=== PATIENT | male | born 1945 | race African-American/Black ===

== ENCOUNTER 2019-07-24 18:44 | Emergency (ER) | payer MEDICARE, MEDICAID, SELFPAY ==
[2019-07-24 18:46] VITALS: BP 158/83; PULSE 62; RESP 15; TEMP 36.6; O2SAT 98; BMI 25.0
--- NOTE | 2019-07-24 19:03 | ED.DCSUM_ITS ---
History of Present Illness Chief Complaint: General Illness Detail of Chief Complaint: Needs blood glucose test strips Informant: Patient Onset: - - Patient has one prescription remaining Context: Sudden Onset Quality: Read narrative Location: Read narrative Current Severity: Not applicable Maximum Severity: Not applicable Worsened by: Not applicable Relieved by: Not applicable Associated Symptoms: Presently no symptoms Narrative: Patient is a 74-year-old insulin diabetic male who recently had eye surgery. He went to [facility] pharmacy to refill his prescription for blood glucose test strips. He was informed that he can only get his prescription filled at the pharmacy in [facility]. He presents now because he is not sure what to do. His test strips are different than the ones that are carried at [facility]. Presently has no symptoms. Patient states he believes it in the emergency of his blood sugars 200. It was determined that he is on a sliding scale and is uncertain how much insulin to give himself unless he monitors his blood sugar. Patient was informed I will be glad to write a prescription for test strips. He states that would not help because he does not have the 100 $250 needed to fill the prescription. He believes it is my responsibility and the hospice possibility to care for him and provide him with test strips. Prior similar symptoms: No Recent Illness/Hospitalization: Yes - Eye surgery - Past Medical History (1) Insulin dependent diabetes mellitus Status: Acute Past Medical History - Allergies and Home Meds Allergies/Adverse Reactions: Allergies No Known Allergies Allergy (Verified 11/01/14 04:03) Primary Care Physician: Gallito Flores Chi, MD [Primary Care Provider] - Prior records reviewed: No - Not from area Surgical History: noncontributory Lives: Alone Smoking Status: Current every day smoker Alcohol: None Review of Systems General: Denies: Chills, Fever, Subjective Eyes: Denies: Visual changes - bilaterally, Blurred Vision - bilaterally Genitourinary: Denies: Dysuria, Hematuria, Frequency Endocrine: Denies: Polyuria, Polydipsia Physical Exam Vital Signs/Narrative: Vital Signs Temp Pulse Resp BP Pulse Ox 07/24/19 18:46 97.8 F 62 15 158/83 H 98 Inital Vital Signs reviewed: Yes General: Well nourished, Well developed, No Acute Distress Eyes: Perrl, EOMI. Negative for: Pale conjunctiva, Scleral icterus Skin: Normal color, No rash Neurological: Alert, Oriented x3, Cranial nerves II-XII grossly intact, Normal Strength, Normal Sensation Psychological: Agitated - Agitated after he was told that we do not have the test strips he needs and his belief that it is our responsibility to care for him and monitor him. Diagnostic/Tx/Re-eval - Medical Decision Making Recent presents for advice regarding test strips. He was not happy with my response or nurses response. He was told that there is a charge every time he comes in to have his blood sugar checked. He replied I do not care I have insurance and it is your responsibility to care for me. ' Patient was informed that a blood sugar of 200 is not a medical emergency. It is his belief that it is. ED Disposition - Plan for ED Patient: Disposition: Home or Assisted Living Diagnosis: Encounter for medical screening examination Instructions: MEDICAL SCREENING EXAM, NonUrgent Referrals: Gallito Flores Chi, MD [Primary Care Provider] -
[2019-07-24 19:21] LABS: Bedside Glucose 118 mg/dL (70-110)
--- NOTE | 2019-07-24 19:30 | ED.RN ---
1904: Rn walks into the room to find dr. poon and the patient discussing that we are unable to assist with the glucometer strips. The pt expresses frustration that he cannot get help. this RN states we can check your blood glucose for you, Dr. Poon agrees saying we can check. The patient is getting louder voicing his frustration that a hospital will not help him. Reviewed that diabetes management is done by a primary provider and maybe he can call his to get strips. He states you are only turning me away because I am black and this is discrimination. Pt continues to express that we are being racist. He then states you are kicking me out and not even checking my blood sugar. RN tells the patient she never said he had to leave or telling him to, that I also offered to check the blood sugar when I first met the patient. He is raising his voice and in the door way expressing that we are discriminating against him and not offering him more services as we would if he was white. He states we should automatically check his blood sugar when he walks in. RN discussed waiting for the provider to see the patient to initiate a check as he does not have complaints of blood glucose being high or low. He reiterates that I have not checked his sugar when he first walked in and no one asked when the last time he took his insulin or checked hs blood glucose was. RN confirmed she would check his blood glucose and he allows. RN leaves the room to obtain glucometer as Umesh RN starts talking to the patient. This RN returns to check blood glucose. Pt denies at this time as discussing health concerns and discrimination with Umesh. RN told patient I walked into the room when the provider was in the room and have not had the opportunity to complete my own assessment. Checked glucose at this time and results at 118. RN tells patient maybe he can call [facility] in [place] to send prescription to [facility]. Pt replies with it will not work that we should be calling the pharmacy to figure out why and not being discriminating against him. Umesh RN calls pharmacy and they are closed. Umesh RN then told patient he called pharmacy and they were closed. Pt walked out at 1920
== END 2019-07-24 19:23 | disposition home or self-care (01) ==
LOC: ED 19:18
PROVIDERS: Emergency Provider Emergency Medicine; Family Provider Family Medicine Geriatric Medicine; PCP Family Medicine Geriatric Medicine
DX: Z76.0 Encounter for issue of repeat prescription (principal); E11.9 Type 2 diabetes mellitus without complications; Z79.4 Long term (current) use of insulin; F17.200 Nicotine dependence, unspecified, uncomplicated
CPT/HCPCS: 82962; 99282

== ENCOUNTER 2019-12-14 16:08 | Inpatient (IN) | payer MEDICARE, MEDICAID, SELFPAY ==
[2019-12-14 16:17] VITALS: BP 143/73; PULSE 84; RESP 18; TEMP 36.7; O2SAT 100; BMI 27.0
--- NOTE | 2019-12-14 16:35 | RAD_ITS ---
STUDY: X-RAY CHEST REASON FOR EXAM: Male, 74 years old. PT HAS HAD INTERMITTENT CONFUSION SINCE YESTERDAY. TECHNIQUE: Single AP portable view of the chest. COMPARISON: 03/02/2010 FINDINGS: The lungs are clear and expanded. There is no demonstrated pleural abnormality. There is moderate cardiac enlargement. Normal mediastinum and braden. Normal visualized pulmonary arteries. Normal visualized aortic arch and descending thoracic aorta. Normal visualized thoracic spine. Normal visualized ribs, clavicles, and shoulders. There is no demonstrated abnormality of the visualized soft tissue structures of the upper abdomen. RAD/Chest 1 View IMPRESSION: No active disease. Electronically Signed: Gary Singh MD at 17:06 EST Tel , Service support ,
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
--- NOTE | 2019-12-14 16:35 | EKG12_ITS ---
Test Reason : CONFUSION Blood Pressure : / mmHG Vent. Rate : 072 BPM Atrial Rate : 072 BPM P-R Int : 130 ms QRS Dur : 098 ms QT Int : 386 ms P-R-T Axes : 077 051 065 degrees QTc Int : 422 ms Normal sinus rhythm Possible Left atrial enlargement Borderline ECG Confirmed by HERBERT RUFF ([id number]), website/blog editor JHON GRIMES ([id number]) on 12/15/2019 3:00:26 PM Referred By: [facility]UC Confirmed By:HERBERT RUFF
[2019-12-14 16:43] LABS: Absolute Lymphocyte Count 1.29 X10^3/uL (0.83-4.51); Absolute Neutrophil Count 7.1 X10^3/uL (2.0-7.7); Basophil# 0.05 X10^3/uL; Basophil% 0.5 % (0-1); Eosinophil# 0.02 X10^3/uL; Eosinophils% 0.2 % (0-5); Hematocrit 50.8 % (40-54); Hemoglobin 15.8 g/dL (13.0-16.5); Lymphocyte # 1.29 X10^3/ul (4.0); Lymphocyte % 13.6 % (19-41); Mean Corp Hgb Conc 31.1 g/dL (32-36); Mean Corpuscular Hgb 25.9 pg (27.0-32.0); Mean Corpuscular Volume 83.1 fL (80-94); Mean Platelet Vol. 11.3 fl (6.2-12.0); Monocyte# 0.98 X10^3/uL; Monocyte% 10.3 % (0-10); NRBC Flagged by Analyzer 0 % (0-5); Neutrophil # 7.13 X10^3/uL (2.7-7.7); Platelet Count 174 K/mm3 (150-450); RBC Distribution Width CV 15.2 % (11.6-14.6); RBC Distribution Width SD 45.1 fl (35.1-43.9); Red Blood Count 6.11 M/mm3 (4.6-6.2); White Blood Count 9.5 K/mm3 (4.4-11.0)
[2019-12-14 16:52] LABS: International Normalized Ratio 1.1
[2019-12-14 16:53] LABS: Partial Thromboplast Time 25.3 Seconds (24.1-36.2)
[2019-12-14 17:05] LABS: Anion Gap 6 (5-15); BUN 16 mg/dL (7-18); BUN/Creat Ratio 16.3 RATIO (10-20); Calcium,Total 8.6 mg/dL (8.5-10.1); Chloride 105 mmol/L (98-107); Creatinine, Serum 0.98 mg/dL (0.70-1.30); EST Glomerular Filtration Rate 79 mL/min (>60); Est Glom Filt Rate - Afr Amer 96 mL/min (>60); Estimated Creatinine Clearance 59.68 ml/min; Glucose 222 mg/dL (74-106); Potassium 3.7 mmol/L (3.5-5.1); Sodium Level 139 mmol/L (136-145)
[2019-12-14] MEDS: LORazepam 2 MG/ML Syringe 1 MG IV (17:40)
[2019-12-14] MEDS: 0.9% Normal Saline 1,000 ML 100 ML IV (17:41)
[2019-12-14 18:16] VITALS: BP 149/81; PULSE 80; RESP 25; O2SAT 95
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
--- NOTE | 2019-12-14 18:23 | NURSING ---
PCU STROKE WHITE
--- NOTE | 2019-12-14 18:43 | PCM.HP.STD ---
Problem List (1) CVA (cerebral vascular accident) Status: Acute (2) GERD (gastroesophageal reflux disease) Status: Acute (3) HLD (hyperlipidemia) Status: Acute (4) HTN (hypertension) Status: Chronic (5) Insulin dependent diabetes mellitus Status: Acute History of Present Illness Date of Admission: 12/14/19 Chief Complaint: aphasia The patient is a 74 year old M with pmhx of IDDM, HTN, HLD, GERD who presented to the ER with c/o expressive aphasia. Pt is only answering yes/no currently so hx is limited. Pts symptoms started yesterday. He is having difficulty finding his words. He did get upset during the CT scan due to claustrophobia and was speaking more. The most I could get him to say was a stroke? when I asked about a hx of stroke, which he then denied. He denies focal weakness, AYALA, vision changes, numbness/tingling, ataxia, swallowing difficulty, slurred speech. He is resting comfortably in bed NAD. He denies fm hx of stroke. CTA was limited due to motion, absent P1 segment of the right posterior cerebral artery, distal segment supplied by the right posterior communicating artery.. [] Past Medical History Past Medical History (Chronic Problems): Chronic Problems HTN (hypertension) (Chronic) Allergies No Known Allergies Allergy (Verified 12/14/19 16:33) Home Medications: Ambulatory Orders Medication Instructions Recorded Duloxetine HCl 60 mg PO DAILY 11/01/14 Hydrocodone/Acetaminophen 1 each PO Q6H PRN PRN 11/01/14 [Hydrocodon-Acetaminophen 5-325] Insulin Glargine [Lantus SoloStar 30 units SC QHS 11/01/14 Pen] Insulin NPH Hum/Reg Insulin Hm 30 unit SQ BREAKFAST 11/01/14 [Novolin 70-30 100 Unit/ml Vial] Insulin NPH Hum/Reg Insulin Hm 30 unit SQ DINNER 11/01/14 [Novolin 70-30 100 Unit/ml Vial] Insulin Regular, Human [Humulin R] 0 unit SQ TID 11/01/14 Lisinopril/Hydrochlorothiazide 1 tablet PO DAILY 11/01/14 [Zestoretic 20/12.5 Tablet] Meloxicam [Mobic] 7.5 mg PO DAILY 11/01/14 Omeprazole [Prilosec] 20 mg PO DAILY 11/01/14 Pregabalin [Lyrica] 150 mg PO BID 11/01/14 Simvastatin [Zocor] 20 mg PO QHS 11/01/14 traMADol [Ultram (G)] 1 - 2 tab PO Q8H PRN PRN 11/01/14 Surgical History: noncontributory Psychiatric History: No pertinent psych hx Lives: Alone Smoking Status: Former smoker Tobacco Use: Non-smoker Alcohol: None Drugs: None - *Family History Maternal History Items: - - denies stroke, CAD Paternal History Items: - - denies stroke, CAD Review of Systems Constitutional: Denies: Chills, Fever, Weight Change HEENT: Denies: Head Aches, Sinus Congestion, Sinus Drainage Cardiovascular: Denies: Chest Pain, Palpitations Respiratory: Denies: Cough, Shortness of breath at rest, Sputum production Gastrointestinal: Denies: Abdominal Pain, Nausea, Vomiting Genitourinary: Denies: Dysuria Musculoskeletal: Denies: Joint Pain, Joint Tenderness Skin: Denies: Rash, Wounds Neurological: Denies: Blurred vision, Double vision, Change in Speech, Slurred speech, Confusion, Difficulty swallowing, Focal weakness, Headaches, Incoordination, Numbness, Tingling, Tremor Psychiatric: Denies: Anxiety, Depression, Homicidal Ideations, Suicidal Ideations Hematologic/ Lymphatic: Denies: Easy Bruising, Easy Bleeding VTE Information - Inpt Only VTE Present on Admission: No VTE Mechan Device Prophylaxis: None VTE Pharm Prophylaxis ordered?: Yes Patient Problems: Active and Suspected Problems GERD (gastroesophageal reflux disease) (Acute) HLD (hyperlipidemia) (Acute) CVA (cerebral vascular accident) (Acute) - Physical Exam Vitals/I&O's: Vital Signs Temp Pulse Resp BP Pulse Ox 98.0 F 80 25 H 149/81 H 95 12/14/19 16:17 12/14/19 18:16 12/14/19 18:16 12/14/19 18:16 12/14/19 18:16 Oxygen Delivery Method Room Air Weight: 167 lb 8.821 oz Body Mass Index (BMI) 27.0 Finger Stick Blood Glucose 203 General: Alert, Oriented x3, Cooperative HEENT: Atraumatic, PERRLA, EOMI, Normocephalic Neck: Supple, No JVD, Negative Carotid Bruits Lungs: Clear to auscultation, Normal air movement Cardiovascular: Regular rate, No murmurs Abdomen: Bowel Sounds Present, Soft, Non Tender Extremities: No edema, Capillary Refill Less than 3 Seconds Skin: No rashes, No breakdown Musculoskeletal: No Tenderness to Palpation of Joints or Extremities Neurological: Cranial nerves II-XII grossly intact, Facial Droop - left lip, left eye, - - expressive aphasia Psych/Mental Status: Normal Affect, Appropriate, Alert and oriented to time, place, person, mood and affect Laboratory Results 12/14/19 16:30: WBC 9.5, RBC 6.11, Hgb 15.8, Hct 50.8, MCV 83.1, MCH 25.9 L, MCHC 31.1 L, RDW Std Deviation 45.1 H, RDW Coeff of Vivian 15.2 H, Plt Count 174, MPV 11.3, Immature Gran % (Auto) 0.400, Neut % (Auto) 75.0 H, Lymph % (Auto) 13.6 L, Converse % (Auto) 10.3 H, Eos % (Auto) 0.2, Baso % (Auto) 0.5, Absolute Neuts (auto) 7.1, Absolute Lymphs (auto) 1.29, Nucleated RBC % 0 12/14/19 16:30: PT 14.0, INR 1.1, APTT 25.3 12/14/19 16:30: Sodium 139, Potassium 3.7, Chloride 105, Carbon Dioxide 28.0, Anion Gap 6, BUN 16, Creatinine 0.98, Estim Creat Clear Calc 59.68, Est GFR (MDRD) Af Amer 96, Est GFR (MDRD) Non-Af 79, BUN/Creatinine Ratio 16.3, Glucose 222 H, Calcium 8.6, Troponin I < 0.015 Current Medications Sodium Chloride () 1,000 mls @ 100 mls/hr IV .Q10H ONE Stop: 12/15/19 02:33 Last Admin: 12/14/19 17:41 Dose: 100 mls/hr Documented by: Assessment/Plan All Active Problems Insulin dependent diabetes mellitus (Acute) GERD (gastroesophageal reflux disease) (Acute) HLD (hyperlipidemia) (Acute) CVA (cerebral vascular accident) (Acute) 1. Suspected stroke - ongoing expressive aphasia, left facial droop lip and eye. CTA with absent P1 segment right posterior cerebral artery, distal segment supplied via patent right posterior communicating artery, study limited due to motion. Obtain MRI. Obtain echo. Continue NIH scales. PT OT ST eval's. Symptoms began yesterday afternoon, TPA not indicated. Maximize statin, start aspirin. Obtain FLP, A1c, TSH. Troponin is negative. EKG shows normal sinus rhythm. -he will need ativan prior to MRI due to claustrophobia. he was very agitated for the CTA. 2. IDDM-check A1c, continue home insulin plus sliding scale insulin. 3. Hypertension-hold oral meds, permissive hypertension 4. Hyperlipidemia-maximize statin. 5. GERD-PPI DVT prophylaxis: Lovenox This patient was seen by David Ferreira PA-C under the supervision of Doctor Carole.
[2019-12-14 19:38] VITALS: BMI 25.7
[2019-12-14 19:43] VITALS: BMI 25.8
[2019-12-14 19:51] VITALS: PULSE 82
--- NOTE | 2019-12-14 19:54 | NURSING ---
Pt does not know home medications. Pt's friends to call in with rivka bray.
--- NOTE | 2019-12-14 19:56 | ED.DCSUM_ITS ---
- ER Visit Summary Date of Service: 12/14/19 Chief Complaint: Expressive aphasia History of Present Illness: The patient is a [address] Van Flores. Patient reports that yesterday afternoon he began having difficulty expressing his thoughts. He reports that he does have a little bit of headache. He reports that he has weakness and numbness in his right hand. He denies any change in his vision. On review of systems patient does complain of a sore throat and diarrhea. Physical Examination: Vitals: Stable. Afebrile. General: Well-nourished and well-developed. Head: Normocephalic atraumatic. Neck: Supple, no lymphadenopathy. No JVD. Nontender. Cardiovascular: Regular rate and rhythm. No murmurs. Respiratory: No respiratory distress. Clear to auscultation bilaterally. Abdominal: Soft, nontender, nondistended, normal bowel sounds. No guarding, rebound, or peritoneal signs. Back: Nontender. Extremities: Nontender, no edema. Skin: Normal color, no rash. Neurologic: Alert and oriented ?3. Cranial nerves II through XII are intact. Normal strength and sensation. NIH scale is 5 due to 2 points as he is not able to state the month or his age, 2 points for his a aphasia, and 1 for dysarthria. Psych: Normal affect. Test Results: EKG is sinus at 72 with nonspecific changes. Troponin is negative. Coags are normal. Chem-7 shows a glucose 222. CBC shows segmented neutrophils 75 lymphocytes 14. Clinical Impression(s) from Imaging Studies Chest X-Ray 12/14/19 16:35 IMPRESSION: No active disease. Electronically Signed: Gary Singh MD at 17:06 EST Tel , Service support , Head/Neck CTA 12/14/19 16:35 IMPRESSION: 1. Limited study due to motion artifact. 2. 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 The distal segments are supplied via the patent right posterior communicating artery. 3. Otherwise normal [place]. 4. Minimal atherosclerotic plaque in the right carotid bifurcation without significant stenosis by NASCET criteria. 5. Normal left carotid and vertebral arteries. Electronically Signed: Leobrado Ashton DO at 18:06 EST Tel [phone], Service support , Emergency Department Course and Treatment: Patient was given a dose of Ativan following the CT as he became very anxious in the CT. He is not a TPA candidate as this is been approximate 24 hours since the onset of this. He is resting comfortably. Treatment Plan: The patient was discussed with Dr. Lam. He will be admitted to the hospital for further evaluation and treatment. Disposition: Admitted in stable condition. Impression: 1. Stroke. 2. Expressive aphasia. This note was generated with [employer] dictation software. It may contain incorrect words, spelling, and punctuation that were not noted in review of the chart pr ior to signing ED Disposition - Plan for ED Patient: Disposition: Acute [facility]
[2019-12-14 20:00] VITALS: BP 149/67; PULSE 77; RESP 17; TEMP 37.7; O2SAT 97
[2019-12-14 21:14] LABS: Cholesterol 107 mg/dL (200); High Density Lipoprotein 54 mg/dL; Magnesium 2.3 mg/dL (1.6-2.6); Triglycerides 75 mg/dL; Very Low Density Lipoprotein 15 mg/dL (5-40)
[2019-12-14] MEDS: Pregabalin 75 MG Capsule 150 MG PO (21:50)
[2019-12-14] MEDS: Atorvastatin Calcium 80 MG Tablet PO (21:50)
[2019-12-14 22:07] VITALS: BP 140/69; PULSE 78; RESP 17; TEMP 36.9; O2SAT 98
[2019-12-14 22:16] LABS: Bedside Glucose 103 mg/dL (70-110)
[2019-12-14 22:23] LABS: Hemoglobin A1c 7.4 % (4.2-6.3)
[2019-12-14 23:16] VITALS: PULSE 93
[2019-12-15] VITALS (11 sets, daily range): BP systolic 124–159; BP diastolic 53–78; PULSE 68–100; RESP 14–18; TEMP 36.1–37.3; O2SAT 92–99; BMI 25.7
[2019-12-15] MEDS: Enoxaparin 40 MG/0.4 ML Syringe SC (05:31)
--- NOTE | 2019-12-15 05:55 | ECHOD_ITS ---
Reason For Study: STROKE Procedure This was a 2D Doppler, Color Flow transthoracic echocardiogram. Exam performed portable in patient room. Left Ventricle Normal size and thickness. The estimated ejection fraction is 65 %. Stage 1 diastolic dysfunction. No regional wall motion abnormalities noted. Right Ventricle Normal size and thickness. Normal systolic function. Atria Normal left atrium. Normal right atrium. Normal atrial septum. Bubble contrast study negative for right to left interatrial shunt. Mitral Valve The mitral valve is structurally normal. No prolapse or stenosis seen. Tricuspid Valve Normal tricuspid valve. Unable to estimate RV systolic pressure due to inadequate jet, pulmonary artery pressure probably normal. Aortic Valve Normal aortic valve. Trisinus/trileaflet aortic valve. Pulmonic Valve The pulmonic valve is not well visualized. Great Vessels Normal aortic root. Normal arch. Normal inferior vena cava. Inferior vena cava collapse with sniff. Pericardium/Pleural No pericardial effusion. Medication Performed a rapid injection of agitated mix of 9 cc saline and 1cc air to assess for atrial septal defect. MMode/2D Measurements & Calculations LVIDd: 3.9 cm IVSd: 1.1 cm Ao root diam: 3.1 cm LVIDs: 2.5 cm LVPWd: 1.2 cm RVDd: 2.7 cm FS: 34.9 % LAV(MOD-bp): 31.2 ml LVAd ap4: 26.3 cm2 SV(MOD-sp4): 49.0 ml LAV(MOD-bp) Indexed: 17.6 ml/m2 EDV(MOD-sp4): 76.7 ml LAV(MOD-sp2): 35.1 ml EDV(sp4-el): 79.4 ml LAV(MOD-sp4): 27.7 ml LVAs ap4: 14.2 cm2 ESV(MOD-sp4): 27.8 ml ESV(sp4-el): 27.3 ml EF(MOD-sp4): 63.8 % EF(sp4-el): 65.7 % SV(sp4-el): 52.1 ml LA A4 area: 12.6 cm2 LA dimension(2D): 3.0 cm RA A4 area: 12.3 cm2 Time Measurements MV dec time: 0.31 sec Doppler Measurements & Calculations MV E max salvador: 66.5 cm/sec Lat Peak E' Salvador: 8.5 cm/sec Med Peak E' Salvador: 7.5 cm/sec MV A max salvador: 98.6 cm/sec E/E' lat: 7.8 E/E' med: 8.8 MV E/A: 0.67 Ao V2 max: 138.5 cm/sec LV V1 max: 100.5 cm/sec PA V2 max: 98.0 cm/sec Ao max P.7 mmHg LV V1 max P.0 mmHg Interpretation Summary The estimated ejection fraction is 65 %. Stage 1 diastolic dysfunction. Bubble contrast study negative for right to left interatrial shunt. Unable to estimate RV systolic pressure due to inadequate jet, pulmonary artery pressure probably normal. There is no comparison study available. Ordering Physician: David Ferreira Referring Physician: FLIP FALL Performed By: Yisel Ralph RDCS
[2019-12-15 06:10] LABS: Absolute Lymphocyte Count 1.66 X10^3/uL (0.83-4.51); Absolute Neutrophil Count 7.1 X10^3/uL (2.0-7.7); Basophil# 0.03 X10^3/uL; Basophil% 0.3 % (0-1); Eosinophil# 0.08 X10^3/uL; Eosinophils% 0.8 % (0-5); Hematocrit 50.9 % (40-54); Lymphocyte # 1.66 X10^3/ul (4.0); Lymphocyte % 16.7 % (19-41); Mean Corp Hgb Conc 31.4 g/dL (32-36); Mean Corpuscular Hgb 25.9 pg (27.0-32.0); Mean Corpuscular Volume 82.4 fL (80-94); Mean Platelet Vol. 12.4 fl (6.2-12.0); Monocyte# 1.01 X10^3/uL; Monocyte% 10.2 % (0-10); NRBC Flagged by Analyzer 0 % (0-5); Neutrophil # 7.13 X10^3/uL (2.7-7.7); Neutrophil % 71.6 % (47-70); Platelet Count 190 K/mm3 (150-450); RBC Distribution Width CV 15.3 % (11.6-14.6); RBC Distribution Width SD 45.1 fl (35.1-43.9); Red Blood Count 6.18 M/mm3 (4.6-6.2)
[2019-12-15 06:36] LABS: Anion Gap 6 (5-15); BUN 17 mg/dL (7-18); BUN/Creat Ratio 19.2 RATIO (10-20); Calcium,Total 8.4 mg/dL (8.5-10.1); Chloride 109 mmol/L (98-107); Creatinine, Serum 0.88 mg/dL (0.70-1.30); EST Glomerular Filtration Rate 89 mL/min (>60); Est Glom Filt Rate - Afr Amer 108 mL/min (>60); Estimated Creatinine Clearance 64.06 ml/min; Glucose 79 mg/dL (74-106); Potassium 3.7 mmol/L (3.5-5.1); Sodium Level 140 mmol/L (136-145)
[2019-12-15 08:25] LABS: Bedside Glucose 86 mg/dL (70-110)
[2019-12-15] MEDS: Insulin Human 75/25 Kwickpen 30 UNIT SC ×2 (09:07→17:37)
[2019-12-15] MEDS: DULoxetine Hcl 60 MG Capsule PO (10:03)
[2019-12-15] MEDS: Aspirin 81 MG TAB.CHEW PO (10:04)
[2019-12-15] MEDS: Polyethylene Glycol 3350 17 GM PACKET PO (10:05)
[2019-12-15] MEDS: Pantoprazole Sodium 20 MG Tablet PO (10:05)
[2019-12-15] MEDS: Pregabalin 75 MG Capsule 150 MG PO ×2 (10:09→22:57)
--- NOTE | 2019-12-15 11:20 | CASEMGMT ---
Social Work: PHQ-9 completed. Patient scored a 1/27 indicating minimal depression. SANTO Gomez
[2019-12-15 11:46] LABS: Bedside Glucose 202 mg/dL (70-110)
[2019-12-15] MEDS: LORazepam 2 MG/ML Syringe 1 MG IV (11:55)
[2019-12-15] MEDS: 0.9% Saline Lock 10 ML Syringe IV (11:55)
[2019-12-15] MEDS: Insulin Lispro 100 UNIT/ML INSULN.PEN SC ×2 (11:58→17:49)
--- NOTE | 2019-12-15 12:00 | MRI_ITS ---
STUDY: MRI BRAIN WITHOUT CONTRAST REASON FOR EXAM: Male, 74 years old. stroke, RLE weakness, expressive aphasia TECHNIQUE: Standardized multiplanar fat and water weighted pulse sequences were obtained. COMPARISON: CT 11/01/2014 FINDINGS: There is mild cerebral atrophy with widening of the extra-axial spaces and ventricular dilatation. There are a limited number of small white matter hyperintensities, distributed throughout the deep white matter tracts of the cerebral hemispheres, consistent with mild chronic white matter ischemic changes. There is no evidence for recent intracranial ischemia or other cause of cytotoxic edema on diffusion weighted imaging (DWI). Normal T2* images of the brain without demonstrated susceptibility artifact. There is no demonstrated hemosiderin stain. Normal bilateral basal ganglia. Normal thalami. There is no extra-axial fluid accumulation. Normal flow voids within the major intracranial circulation suggesting patency by spin echo criteria. Normal sella turcica, pituitary gland, infundibular stalk, optic chiasm and hypothalamus. Normal tectal plate and pineal gland. Normal midbrain, minal and medulla. Normal cerebellum. Normal basal cisterns. Normal bilateral temporal bones. Normal bilateral internal auditory canals. There are bilateral ocular lens implants with otherwise normal intraorbital contents. Normal visualized paranasal sinuses. Normal calvarium and skull base. Normal visualized soft tissue structures. Normal visualized upper cervical spine. MRI/Brain without Contrast IMPRESSION: Involutional changes of the brain, as described above. No acute infarct. Electronically Signed: Gary Singh MD at 14:57 EST Tel , Service support ,
[2019-12-15] MEDS: Glucerna Shake 120 ML LIQUID PO ×3 (14:08→22:50)
--- NOTE | 2019-12-15 15:13 | PN_ITS ---
<David Ferreira - Last Filed: 12/15/19 15:13> Patient Problems: Active and Suspected Problems GERD (gastroesophageal reflux disease) (Acute) HLD (hyperlipidemia) (Acute) CVA (cerebral vascular accident) (Acute) Reason for Visit: Aphasia Subjective: Pt resting comfortably in bed NAD. No complaints today. Holding a normal conversation without difficulty word finding and slurring. He has no focal weakness, no numbness/tingling, no vision/hearing changes. He has significant generalized weakness and did poorly with therapy, they recommend rehab and not safe for home. Vitals/I&O's: Vital Signs Temp Pulse Resp BP Pulse Ox 98.6 F 100 14 130/53 H 95 12/15/19 14:04 12/15/19 14:04 12/15/19 14:04 12/15/19 14:04 12/15/19 14:04 Oxygen Delivery Method Room Air Weight: 154 lb 12.232 oz Body Mass Index (BMI) 25.7 Finger Stick Blood Glucose 203 Intake and Output for Last 24 Hours 12/13/19 12/14/19 12/15/19 23:59 23:59 23:59 Intake Total 583.33 / 583.33 640 / 640 Output Total 150 / 150 300 / 300 Balance 433.33 / 433.33 340 / 340 General: Alert, Oriented x3, Cooperative HEENT: Atraumatic, PERRLA, EOMI, Normocephalic Neck: Supple, No JVD, Negative Carotid Bruits Lungs: Clear to auscultation, Normal air movement Cardiovascular: Regular rate, No murmurs Abdomen: Bowel Sounds Present, Soft, Non Tender Extremities: No edema, Capillary Refill Less than 3 Seconds Skin: No rashes, No breakdown Musculoskeletal: No Tenderness to Palpation of Joints or Extremities Neurological: Cranial nerves II-XII grossly intact Psych/Mental Status: Normal Affect, Appropriate, Alert and oriented to time, place, person, mood and affect Laboratory Results 12/14/19 16:30: WBC 9.5, RBC 6.11, Hgb 15.8, Hct 50.8, MCV 83.1, MCH 25.9 L, MCHC 31.1 L, RDW Std Deviation 45.1 H, RDW Coeff of Vivian 15.2 H, Plt Count 174, MPV 11.3, Immature Gran % (Auto) 0.400, Neut % (Auto) 75.0 H, Lymph % (Auto) 13.6 L, [place] % (Auto) 10.3 H, Eos % (Auto) 0.2, Baso % (Auto) 0.5, Absolute Neuts (auto) 7.1, Absolute Lymphs (auto) 1.29, Nucleated RBC % 0 12/14/19 16:30: PT 14.0, INR 1.1, APTT 25.3 12/14/19 16:30: Sodium 139, Potassium 3.7, Chloride 105, Carbon Dioxide 28.0, Anion Gap 6, BUN 16, Creatinine 0.98, Estim Creat Clear Calc 59.68, Est GFR (MDRD) Af Amer 96, Est GFR (MDRD) Non-Af 79, BUN/Creatinine Ratio 16.3, Glucose 222 H, Calcium 8.6, Troponin I < 0.015 12/14/19 16:30: Magnesium 2.3, Triglycerides 75, Cholesterol 107, LDL Cholesterol 38, VLDL Cholesterol 15, HDL Cholesterol 54, TSH 0.50 12/14/19 16:30: Hemoglobin A1c 7.4 H 12/14/19 21:54: POC Glucose 103 12/15/19 05:30: WBC 10.0, RBC 6.18, Hgb 16.0, Hct 50.9, MCV 82.4, MCH 25.9 L, MCHC 31.4 L, RDW Std Deviation 45.1 H, RDW Coeff of Vivian 15.3 H, Plt Count 190, MPV 12.4 H, Immature Gran % (Auto) 0.400, Neut % (Auto) 71.6 H, Lymph % (Auto) 16.7 L, [place] % (Auto) 10.2 H, Eos % (Auto) 0.8, Baso % (Auto) 0.3, Absolute Neuts (auto) 7.1, Absolute Lymphs (auto) 1.66, Nucleated RBC % 0 12/15/19 05:30: Sodium 140, Potassium 3.7, Chloride 109 H, Carbon Dioxide 25.0, Anion Gap 6, BUN 17, Creatinine 0.88, Estim Creat Clear Calc 64.06, Est GFR (MDRD) Af Amer 108, Est GFR (MDRD) Non-Af 89, BUN/Creatinine Ratio 19.2, Glucose 79, Calcium 8.4 L 12/15/19 08:10: POC Glucose 86 12/15/19 11:43: POC Glucose 202 H Current Medications Acetaminophen (Tylenol) 650 mg PO Q6H PRN PRN PRN Reason: Pain or Fever Al Hydroxide/Mg Hydroxide (Mylanta Ii) 30 ml PO Q6H PRN PRN PRN Reason: Gastric Burning Aspirin (Aspirin, Baby) 81 mg PO DAILY@0800 [facility] Last Admin: 12/15/19 10:04 Dose: 81 mg Documented by: Atorvastatin Calcium (Lipitor) 80 mg PO QHS [facility] Last Admin: 12/14/19 21:50 Dose: 80 mg Documented by: Bisacodyl (Dulcolax) 10 mg PO DAILY PRN PRN PRN Reason: Constipation Docusate Sodium (Colace) 200 mg PO BID PRN PRN PRN Reason: Constipation Duloxetine HCl (Cymbalta) 60 mg PO DAILY [facility] Last Admin: 12/15/19 10:03 Dose: 60 mg Documented by: Enoxaparin Sodium (Lovenox) 40 mg SC DAILY@0600 [facility] Last Admin: 12/15/19 05:31 Dose: 40 mg Documented by: Glucagon () 1 mg IM .X1 PRN PRN Reason: Hypoglycemia Dextrose (Dextrose 10%-Water) 250 mls @ 999 mls/hr IV .Q16M PRN; Protocol PRN Reason: HYPOGLYCEMIA Sodium Chloride () 250 mls @ 15 mls/hr IV .[id number] PRN PRN Reason: Saline Flush Sodium Chloride () 250 mls @ 15 mls/hr IV .[id number] PRN PRN Reason: Additional IVPB Infusion Insulin Human Lispro (Humalog Kwikpen (Bkc)) 0 unit SC ACHS [facility]; Protocol Last Admin: 12/15/19 11:58 Dose: 2 units Documented by: Insulin Lispro Protam/Lispro Human (Humalog Mix 75-25 Kwikpen (Bkc)) 30 unit SC BREAKFAST [facility] Last Admin: 12/15/19 09:07 Dose: 30 units Documented by: Insulin Lispro Protam/Lispro Human (Humalog Mix 75-25 Kwikpen (Bkc)) 30 unit SC DINNER [facility] Nutritional Formula (Lactose Free) (Glucerna Shake) 120 ml PO 4X/DAY [facility] Last Admin: 12/15/19 14:08 Dose: 120 ml Documented by: Ondansetron HCl (Zofran) 4 mg PO Q6H PRN PRN PRN Reason: NAUSEA Ondansetron HCl (Zofran) 4 mg IV Q8H PRN PRN PRN Reason: Nausea Pantoprazole Sodium (Protonix) 20 mg PO DAILY [facility] Last Admin: 12/15/19 10:05 Dose: 20 mg Documented by: Polyethylene Glycol (Miralax) 17 gm PO DAILY [facility] Last Admin: 12/15/19 10:05 Dose: 17 gm Documented by: Pregabalin (Lyrica) 150 mg PO BID [facility] Last Admin: 12/15/19 10:09 Dose: 150 mg Documented by: Sodium Chloride () 10 - 40 ml IV UD PRN PRN Reason: SALINE FLUSH Last Admin: 12/15/19 11:55 Dose: 20 ml Documented by: Tramadol HCl (Ultram) 50 mg PO Q8H PRN PRN PRN Reason: pain STROKE Vital Signs/Narrative: Vital Signs Temp Pulse Resp BP Pulse Ox 12/15/19 14:04 98.6 F 100 14 130/53 H 95 12/15/19 13:42 100 Medical Necessity - Tobacco Use Smoking Status: Former smoker Tobacco Use: Non-smoker Assessment/Plan All Active Problems Insulin dependent diabetes mellitus (Acute) GERD (gastroesophageal reflux disease) (Acute) HLD (hyperlipidemia) (Acute) CVA (cerebral vascular accident) (Acute) 1. ? TIA - transient aphasia, left facial droop. MRI negative, chronic changes. CTA negative. Echo unremarkable. EF 655 st 1 diastolic dysfunction, no ASD. On asa/statin. 2. IDDM- A1C 7.4. continue home insulin plus sliding scale insulin. 3. Hypertension-hold oral meds, permissive hypertension 4. Hyperlipidemia-maximize statin. 5. GERD-PPI 6. Generalized debility - PTOT DVT prophylaxis: Lovenox DC planning: too weak for home, rehab vs SNF. This patient was seen by David Ferreira PA-C under the supervision of Doctor Dennis. <Blanco Collins - Last Filed: 12/15/19 17:07> Reason for Visit: Patient has dysarthria, aphasia and Patient had MRI done in the morning. Patient got 1 mg of IV Ativan. When patient seen in afternoon he was confused and disoriented. Vitals/I&O's: Vital Signs Temp Pulse Resp BP Pulse Ox 98.6 F 100 14 130/53 H 95 12/15/19 14:04 12/15/19 14:04 12/15/19 14:04 12/15/19 14:04 12/15/19 14:04 Oxygen Delivery Method Room Air Weight: 154 lb 12.232 oz Body Mass Index (BMI) 25.7 Finger Stick Blood Glucose 203 Intake and Output for Last 24 Hours 12/13/19 12/14/19 12/15/19 23:59 23:59 23:59 Intake Total 583.33 / 583.33 640 / 640 Output Total 150 / 150 300 / 300 Balance 433.33 / 433.33 340 / 340 General: Alert, Oriented x3, Cooperative HEENT: Atraumatic, PERRLA, EOMI, Normocephalic Neck: Supple, No JVD, Negative Carotid Bruits Lungs: Clear to auscultation, No rhonchi, No wheeze, No rales, Diminished Cardiovascular: Regular rate, Regular Rhythm, Normal S1, Normal S2, No murmurs Abdomen: Bowel Sounds Present, Soft, Non Tender Extremities: No edema, Capillary Refill Less than 3 Seconds Skin: No rashes, No breakdown Musculoskeletal: No Tenderness to Palpation of Joints or Extremities Neurological: - - Mild right lower extremity. Patient has flattening of nasolabial fold on right side and pulling of angle of mouth on left side therefore right-sided facial palsy. Motor and sensory system cannot be examined as patient was mildly confused and disoriented secondary to Ativan. Psych/Mental Status: Normal Affect, Appropriate Laboratory Results 12/14/19 16:30: Sodium 139, Potassium 3.7, Chloride 105, Carbon Dioxide 28.0, Anion Gap 6, BUN 16, Creatinine 0.98, Estim Creat Clear Calc 59.68, Est GFR (MDRD) Af Amer 96, Est GFR (MDRD) Non-Af 79, BUN/Creatinine Ratio 16.3, Glucose 222 H, Calcium 8.6, Troponin I < 0.015 12/14/19 16:30: Magnesium 2.3, Triglycerides 75, Cholesterol 107, LDL Cholesterol 38, VLDL Cholesterol 15, HDL Cholesterol 54, TSH 0.50 12/14/19 16:30: Hemoglobin A1c 7.4 H 12/14/19 21:54: POC Glucose 103 12/15/19 05:30: WBC 10.0, RBC 6.18, Hgb 16.0, Hct 50.9, MCV 82.4, MCH 25.9 L, MCHC 31.4 L, RDW Std Deviation 45.1 H, RDW Coeff of Vivian 15.3 H, Plt Count 190, MPV 12.4 H, Immature Gran % (Auto) 0.400, Neut % (Auto) 71.6 H, Lymph % (Auto) 16.7 L, [place] % (Auto) 10.2 H, Eos % (Auto) 0.8, Baso % (Auto) 0.3, Absolute Neuts (auto) 7.1, Absolute Lymphs (auto) 1.66, Nucleated RBC % 0 12/15/19 05:30: Sodium 140, Potassium 3.7, Chloride 109 H, Carbon Dioxide 25.0, Anion Gap 6, BUN 17, Creatinine 0.88, Estim Creat Clear Calc 64.06, Est GFR (MDRD) Af Amer 108, Est GFR (MDRD) Non-Af 89, BUN/Creatinine Ratio 19.2, Glucose 79, Calcium 8.4 L 12/15/19 08:10: POC Glucose 86 12/15/19 11:43: POC Glucose 202 H Current Medications Acetaminophen (Tylenol) 650 mg PO Q6H PRN PRN PRN Reason: Pain or Fever Al Hydroxide/Mg Hydroxide (Mylanta Ii) 30 ml PO Q6H PRN PRN PRN Reason: Gastric Burning Aspirin (Aspirin, Baby) 81 mg PO DAILY@0800 [facility] Last Admin: 12/15/19 10:04 Dose: 81 mg Documented by: Atorvastatin Calcium (Lipitor) 80 mg PO QHS [facility] Last Admin: 12/14/19 21:50 Dose: 80 mg Documented by: Bisacodyl (Dulcolax) 10 mg PO DAILY PRN PRN PRN Reason: Constipation Docusate Sodium (Colace) 200 mg PO BID PRN PRN PRN Reason: Constipation Duloxetine HCl (Cymbalta) 60 mg PO DAILY [facility] Last Admin: 12/15/19 10:03 Dose: 60 mg Documented by: Enoxaparin Sodium (Lovenox) 40 mg SC DAILY@0600 [facility] Last Admin: 12/15/19 05:31 Dose: 40 mg Documented by: Glucagon () 1 mg IM .X1 PRN PRN Reason: Hypoglycemia Dextrose (Dextrose 10%-Water) 250 mls @ 999 mls/hr IV .Q16M PRN; Protocol PRN Reason: HYPOGLYCEMIA Sodium Chloride () 250 mls @ 15 mls/hr IV .[id number] PRN PRN Reason: Saline Flush Sodium Chloride () 250 mls @ 15 mls/hr IV .[id number] PRN PRN Reason: Additional IVPB Infusion Insulin Human Lispro (Humalog Kwikpen (Bkc)) 0 unit SC ACHS [facility]; Protocol Last Admin: 12/15/19 11:58 Dose: 2 units Documented by: Insulin Lispro Protam/Lispro Human (Humalog Mix 75-25 Kwikpen (Bk)) 30 unit SC BREAKFAST [facility] Last Admin: 12/15/19 09:07 Dose: 30 units Documented by: Insulin Lispro Protam/Lispro Human (Humalog Mix 75-25 Kwikpen (Bk)) 30 unit SC DINNER [facility] Nutritional Formula (Lactose Free) (Glucerna Shake) 120 ml PO 4X/DAY [facility] Last Admin: 12/15/19 14:08 Dose: 120 ml Documented by: Ondansetron HCl (Zofran) 4 mg PO Q6H PRN PRN PRN Reason: NAUSEA Ondansetron HCl (Zofran) 4 mg IV Q8H PRN PRN PRN Reason: Nausea Pantoprazole Sodium (Protonix) 20 mg PO DAILY [facility] Last Admin: 12/15/19 10:05 Dose: 20 mg Documented by: Polyethylene Glycol (Miralax) 17 gm PO DAILY [facility] Last Admin: 12/15/19 10:05 Dose: 17 gm Documented by: Pregabalin (Lyrica) 150 mg PO BID [facility] Last Admin: 12/15/19 10:09 Dose: 150 mg Documented by: Sodium Chloride () 10 - 40 ml IV UD PRN PRN Reason: SALINE FLUSH Last Admin: 12/15/19 11:55 Dose: 20 ml Documented by: Tramadol HCl (Ultram) 50 mg PO Q8H PRN PRN PRN Reason: pain STROKE Vital Signs/Narrative: Vital Signs Temp Pulse Resp BP Pulse Ox 12/15/19 14:04 98.6 F 100 14 130/53 H 95 12/15/19 13:42 100 Assessment/Plan This patient was seen in conjunction with David GARCIA. I have independently interviewed and examined the patient and reviewed pertinent history, examination findings, laboratory and plan of management. I have reviewed the note and agree with the documented findings with the few additional points. In brief, patient is admitted for dysarthria, expressive aphasia and right- sided facial droop with mild right lower extremity weakness. MRI is negative for acute stroke. Head and neck CTA shows right posterior cerebral artery anatomical normal variation with absent P1 segment with supply from patent right posterior communicating artery. PT OT and speech evaluation. Consult telemetry neurology. On aspirin and statin. Blood pressure is controlled. Echo EF 65% with a stage I diastolic dysfunction. No ASD. I have discussed my assessment with David GARCIA and orders have been reviewed. Clinical Impression(s) from Imaging Studies Chest X-Ray 12/14/19 16:35 IMPRESSION: No active disease. Electronically Signed: Gary Singh MD at 17:06 EST Tel , Service support , Head/Neck CTA 12/14/19 16:35 IMPRESSION: 1. Limited study due to motion artifact. 2. 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 The distal segments are supplied via the patent right posterior communicating artery. 3. Otherwise normal [place]. 4. Minimal atherosclerotic plaque in the right carotid bifurcation without significant stenosis by NASCET criteria. 5. Normal left carotid and vertebral arteries. Brain MRI 12/15/19 12:00 IMPRESSION: Involutional changes of the brain, as described above. No acute infarct. Code Visit Inpatient E&M: 32011 Subs Hosp L3
--- NOTE | 2019-12-15 15:36 | CASEMGMT ---
Social Work Note MIKE updated that PT/OT recommending Rehab, not safe for pt to return home. MIKE spoke with Selwyn Mendez who states [facility] will not have a bed available until next week. MIKE met with pt. Pt sleeping when this worker entered the room but woke up. MIKE informed pt that PT/OT are recommending pt go somewhere for rehabilitation. MIKE provided pt with list of SNF that accept pt's insurance. Pt states he will review list. MIKE informed pt that MIKE can follow up with pt tomorrow. Plan: Likely SNF [facility] [employer], [employer]
[2019-12-15 17:35] LABS: Bedside Glucose 192 mg/dL (70-110)
[2019-12-15] MEDS: Clopidogrel Bisulfate 75 MG Tablet PO (17:58)
[2019-12-15] MEDS: Lisinopril 10 MG Tablet PO (17:58)
--- NOTE | 2019-12-15 22:45 | NURSING ---
pts blood sugar 53, juice and cookies given.
[2019-12-15] MEDS: Atorvastatin Calcium 80 MG Tablet PO (22:50)
[2019-12-16] VITALS (9 sets, daily range): BP systolic 120–140; BP diastolic 64–69; PULSE 82–97; RESP 16–20; TEMP 36.4–37.1; O2SAT 92–95; BMI 25.7
[2019-12-16 00:05] LABS: Bedside Glucose 98 mg/dL (70-110)
[2019-12-16 01:36] LABS: Bedside Glucose 128 mg/dL (70-110)
[2019-12-16 03:45] LABS: Bedside Glucose 114 mg/dL (70-110)
[2019-12-16] MEDS: Mag Hydrox/Al Hydrox/Simeth 30 ML UDC PO (03:45)
--- NOTE | 2019-12-16 03:55 | NURSING ---
pt c/o heartburn, mylanta given
[2019-12-16] MEDS: Enoxaparin 40 MG/0.4 ML Syringe SC (06:48)
[2019-12-16 07:05] LABS: Bedside Glucose 45 mg/dL (70-110)
[2019-12-16 07:05] LABS: Bedside Glucose 53 mg/dL (70-110)
[2019-12-16 07:06] LABS: Bedside Glucose 146 mg/dL (70-110)
[2019-12-16] MEDS: Pregabalin 75 MG Capsule 150 MG PO ×2 (10:22→21:49)
[2019-12-16] MEDS: Lisinopril 10 MG Tablet PO (10:23)
[2019-12-16] MEDS: Aspirin 81 MG TAB.CHEW PO (10:23)
[2019-12-16] MEDS: Clopidogrel Bisulfate 75 MG Tablet PO (10:23)
[2019-12-16] MEDS: Polyethylene Glycol 3350 17 GM PACKET PO (10:23)
[2019-12-16] MEDS: Pantoprazole Sodium 20 MG Tablet PO (10:23)
[2019-12-16] MEDS: DULoxetine Hcl 60 MG Capsule PO (10:23)
--- NOTE | 2019-12-16 10:36 | CASEMGMT ---
SW spoke with patient regarding which facility he would like to go to. He seemed unsure of what SW was talking about. SW explained to him that he will need to go somewhere for rehab at discharge before he can go home. SW showed him the list. SW let him know SW would like to know today so SW can make arrangements. He told SW to check back with him. Shelia GOTTLIEB MSW
[2019-12-16 12:10] LABS: Bedside Glucose 190 mg/dL (70-110)
[2019-12-16] MEDS: 0.9% Saline Lock 10 ML Syringe IV (12:52)
[2019-12-16] MEDS: Ondansetron 4 MG/2 ML Vial IV (12:53)
--- NOTE | 2019-12-16 13:47 | CASEMGMT ---
SW spoke with patient regarding which facility he would be willing to go to. He asked SW if he could stop by his home first. SW told him that is not how it normally works. SW explained that normally he would go from the hospital directly to the nursing facility. He said he has money and jewelry at his friend's home and he is not comfortable leaving it there. He said he is nervous about his stuff now. SW told him that we cannot allow him to leave and come back as he is too weak and unstable to go home. SW explained depending on the facility they may be able to assist him in going to his home. Patient would only focus on the fact he needed to go to his home and get this stuff. He would then ask that his records get sent to [facility] and he would go to [facility]. He said he would get up and just walk right out of here and no one could stop him. Housekeeping came in and SW got up to leave. He then said he would go to [facility]. He told SW to find out if he can leave and come back. SW told him he would not be able to do this. MIKE called [facility] and spoke with Maxine in admissions. SW let her know about patient's situation and asked if they would be able to help him get his personal belongings. She said she is not sure she would have to check with [employer] systems administrator. She told SW to fax the referral. MIKE faxed referral to [facility]. Shelia CARDENAS
--- NOTE | 2019-12-16 14:02 | PCM.PROGNOTE ---
<Oksana Obregon - Last Filed: 12/16/19 14:07> Patient Problems: Active and Suspected Problems GERD (gastroesophageal reflux disease) (Acute) HLD (hyperlipidemia) (Acute) CVA (cerebral vascular accident) (Acute) Subjective: Patient seen and examined. Complains of generalized weakness. Denies new neurologic symptoms or focal deficits. - Physical Exam Vitals/I&O's: Vital Signs Temp Pulse Resp BP Pulse Ox 97.6 F L 84 16 126/69 H 93 12/16/19 10:51 12/16/19 10:51 12/16/19 10:51 12/16/19 10:51 12/16/19 10:51 Oxygen Delivery Method Room Air Weight: 154 lb 12.232 oz Body Mass Index (BMI) 25.7 Finger Stick Blood Glucose 203 Intake and Output for Last 24 Hours 12/14/19 12/15/19 12/16/19 23:59 23:59 23:59 Intake Total 583.33 / 583.33 1090 / 1330 240 / 240 Output Total 150 / 150 300 / 300 Balance 433.33 / 433.33 790 / 1030 240 / 240 General: Alert, Oriented x3, Cooperative HEENT: Atraumatic, PERRLA, EOMI, Normocephalic Neck: Supple, No JVD, Negative Carotid Bruits Lungs: Clear to auscultation, Normal air movement Cardiovascular: Regular rate, Regular Rhythm, Normal S1, Normal S2, No murmurs Abdomen: Bowel Sounds Present, Soft, Non Tender, Non-Distended Extremities: No clubbing, No cyanosis, No edema, Capillary Refill Less than 3 Seconds Skin: No rashes, No breakdown Musculoskeletal: No Tenderness to Palpation of Joints or Extremities Neurological: Cranial nerves II-XII grossly intact, Neuro grossly intact Psych/Mental Status: Normal Affect, Appropriate Laboratory Results 12/15/19 17:33: POC Glucose 192 H 12/15/19 22:35: POC Glucose 45 L 12/15/19 22:37: POC Glucose 53 L 12/15/19 23:38: POC Glucose 98 12/16/19 01:01: POC Glucose 128 H 12/16/19 03:39: POC Glucose 114 H 12/16/19 06:53: POC Glucose 146 H 12/16/19 11:56: POC Glucose 190 H Current Medications Acetaminophen (Tylenol) 650 mg PO Q6H PRN PRN PRN Reason: Pain or Fever Al Hydroxide/Mg Hydroxide (Mylanta Ii) 30 ml PO Q6H PRN PRN PRN Reason: Gastric Burning Last Admin: 12/16/19 03:45 Dose: 30 ml Documented by: Aspirin (Aspirin, Baby) 81 mg PO DAILY@0800 [facility] Last Admin: 12/16/19 10:23 Dose: 81 mg Documented by: Atorvastatin Calcium (Lipitor) 80 mg PO QHS [facility] Last Admin: 12/15/19 22:50 Dose: 80 mg Documented by: Bisacodyl (Dulcolax) 10 mg PO DAILY PRN PRN PRN Reason: Constipation Clopidogrel Bisulfate (Plavix) 75 mg PO DAILY [facility] Last Admin: 12/16/19 10:23 Dose: 75 mg Documented by: Docusate Sodium (Colace) 200 mg PO BID PRN PRN PRN Reason: Constipation Duloxetine HCl (Cymbalta) 60 mg PO DAILY [facility] Last Admin: 12/16/19 10:23 Dose: 60 mg Documented by: Enoxaparin Sodium (Lovenox) 40 mg SC DAILY@0600 [facility] Last Admin: 12/16/19 06:48 Dose: 40 mg Documented by: Glucagon () 1 mg IM .X1 PRN PRN Reason: Hypoglycemia Dextrose (Dextrose 10%-Water) 250 mls @ 999 mls/hr IV .Q16M PRN; Protocol PRN Reason: HYPOGLYCEMIA Sodium Chloride () 250 mls @ 15 mls/hr IV .[id number] PRN PRN Reason: Saline Flush Sodium Chloride () 250 mls @ 15 mls/hr IV .[id number] PRN PRN Reason: Additional IVPB Infusion Insulin Human Lispro (Humalog Kwikpen (Bkc)) 0 unit SC ACHS [facility]; Protocol Last Admin: 12/16/19 12:54 Dose: Not Given Documented by: Insulin Lispro Protam/Lispro Human (Humalog Mix 75-25 Kwikpen (Bkc)) 30 unit SC BREAKFAST [facility] Last Admin: 12/16/19 10:32 Dose: Not Given Documented by: Insulin Lispro Protam/Lispro Human (Humalog Mix 75-25 Kwikpen (Bkc)) 30 unit SC DINNER [facility] Last Admin: 12/15/19 17:37 Dose: 30 units Documented by: Lisinopril (Zestril) 10 mg PO DAILY [facility] Last Admin: 12/16/19 10:23 Dose: 10 mg Documented by: Nutritional Formula (Lactose Free) (Glucerna Shake) 120 ml PO 4X/DAY [facility] Last Admin: 12/16/19 12:54 Dose: Not Given Documented by: Ondansetron HCl (Zofran) 4 mg PO Q6H PRN PRN PRN Reason: NAUSEA Ondansetron HCl (Zofran) 4 mg IV Q8H PRN PRN PRN Reason: Nausea Last Admin: 12/16/19 12:53 Dose: 4 mg Documented by: Pantoprazole Sodium (Protonix) 20 mg PO DAILY [facility] Last Admin: 12/16/19 10:23 Dose: 20 mg Documented by: Polyethylene Glycol (Miralax) 17 gm PO DAILY [facility] Last Admin: 12/16/19 10:23 Dose: 17 gm Documented by: Pregabalin (Lyrica) 150 mg PO BID [facility] Last Admin: 12/16/19 10:22 Dose: 150 mg Documented by: Sodium Chloride () 10 - 40 ml IV UD PRN PRN Reason: SALINE FLUSH Last Admin: 12/16/19 12:52 Dose: 10 ml Documented by: Tramadol HCl (Ultram) 50 mg PO Q8H PRN PRN PRN Reason: pain Medical Necessity - Tobacco Use Smoking Status: Former smoker Tobacco Use: Non-smoker Assessment/Plan All Active Problems Insulin dependent diabetes mellitus (Acute) GERD (gastroesophageal reflux disease) (Acute) HLD (hyperlipidemia) (Acute) CVA (cerebral vascular accident) (Acute) 1. TIA- tele-neurology consulted. Continue aspirin, statin. Plavix added. Plan for 30-day Holter monitor at discharge. MRI negative for stroke. Echocardiogram demonstrated EF 65%, stage I diastolic dysfunction. PT/OT/ST. plan for SNF pending acceptance due to ongoing debility. 2. Insulin-dependent diabetes [id number]-[id number] with sliding scale insulin. 3. Hypertension-stable, continue lisinopril, HCTZ regimen. 4. Hyperlipidemia-continue statin. 5. GERD-not on regimen. DVT prophylaxis- Lovenox wa Discharge planning: SNF pending approval. This patient was seen by NETTE Olvera under the supervision of Dr. Collins. <DennisPatiBlanco - Last Filed: 12/16/19 15:34> Subjective: Seen and examined. Patient looks drowsy and lethargic. When asked, he says he feels good does not have a specific symptoms. Overall feels generalized weakness. Facial droop is new as per the patient. Objective: On physical exam General: Alert, Oriented x3, Cooperative HEENT: Atraumatic, PERRLA, EOMI, Normocephalic Neck: Supple, No JVD, Negative Carotid Bruits Lungs: Clear to auscultation, No rhonchi, No wheeze, No rales, Diminished Cardiovascular: Regular rate, Regular Rhythm, Normal S1, Normal S2, No murmurs Abdomen: Bowel Sounds Present, Soft, Non Tender Extremities: No edema, Capillary Refill Less than 3 Seconds Skin: No rashes, No breakdown Musculoskeletal: No Tenderness to Palpation of Joints or Extremities Neurological: -Bilateral lower extremity strength 5/5. Muscle strength 5/5 at major joints. Patient has left-sided facial palsy. Psych/Mental Status: Normal Affect, Appropriate - Physical Exam Vitals/I&O's: Vital Signs Temp Pulse Resp BP Pulse Ox 97.6 F L 84 16 126/69 H 93 12/16/19 10:51 12/16/19 10:51 12/16/19 10:51 12/16/19 10:51 12/16/19 10:51 Oxygen Delivery Method Room Air Weight: 154 lb 12.232 oz Body Mass Index (BMI) 25.7 Finger Stick Blood Glucose 203 Intake and Output for Last 24 Hours 12/14/19 12/15/19 12/16/19 23:59 23:59 23:59 Intake Total 583.33 / 583.33 1090 / 1330 240 / 240 Output Total 150 / 150 300 / 300 Balance 433.33 / 433.33 790 / 1030 240 / 240 Laboratory Results 12/15/19 17:33: POC Glucose 192 H 12/15/19 22:35: POC Glucose 45 L 12/15/19 22:37: POC Glucose 53 L 12/15/19 23:38: POC Glucose 98 12/16/19 01:01: POC Glucose 128 H 12/16/19 03:39: POC Glucose 114 H 12/16/19 06:53: POC Glucose 146 H 12/16/19 11:56: POC Glucose 190 H Current Medications Acetaminophen (Tylenol) 650 mg PO Q6H PRN PRN PRN Reason: Pain or Fever Al Hydroxide/Mg Hydroxide (Mylanta Ii) 30 ml PO Q6H PRN PRN PRN Reason: Gastric Burning Last Admin: 12/16/19 03:45 Dose: 30 ml Documented by: Aspirin (Aspirin, Baby) 81 mg PO DAILY@0800 [facility] Last Admin: 12/16/19 10:23 Dose: 81 mg Documented by: Atorvastatin Calcium (Lipitor) 80 mg PO QHS [facility] Last Admin: 12/15/19 22:50 Dose: 80 mg Documented by: Bisacodyl (Dulcolax) 10 mg PO DAILY PRN PRN PRN Reason: Constipation Clopidogrel Bisulfate (Plavix) 75 mg PO DAILY [facility] Last Admin: 12/16/19 10:23 Dose: 75 mg Documented by: Docusate Sodium (Colace) 200 mg PO BID PRN PRN PRN Reason: Constipation Duloxetine HCl (Cymbalta) 60 mg PO DAILY [facility] Last Admin: 12/16/19 10:23 Dose: 60 mg Documented by: Enoxaparin Sodium (Lovenox) 40 mg SC DAILY@0600 [facility] Last Admin: 12/16/19 06:48 Dose: 40 mg Documented by: Glucagon () 1 mg IM .X1 PRN PRN Reason: Hypoglycemia Dextrose (Dextrose 10%-Water) 250 mls @ 999 mls/hr IV .Q16M PRN; Protocol PRN Reason: HYPOGLYCEMIA Sodium Chloride () 250 mls @ 15 mls/hr IV .[id number] PRN PRN Reason: Saline Flush Sodium Chloride () 250 mls @ 15 mls/hr IV .[id number] PRN PRN Reason: Additional IVPB Infusion Insulin Human Lispro (Humalog Kwikpen (Bkc)) 0 unit SC ACHS [facility]; Protocol Last Admin: 12/16/19 12:54 Dose: Not Given Documented by: Insulin Lispro Protam/Lispro Human (Humalog Mix 75-25 Kwikpen (Bk)) 30 unit SC BREAKFAST [facility] Last Admin: 12/16/19 10:32 Dose: Not Given Documented by: Insulin Lispro Protam/Lispro Human (Humalog Mix 75-25 Kwikpen ([facility])) 30 unit SC DINNER [facility] Last Admin: 12/15/19 17:37 Dose: 30 units Documented by: Lisinopril (Zestril) 10 mg PO DAILY [facility] Last Admin: 12/16/19 10:23 Dose: 10 mg Documented by: Nutritional Formula (Lactose Free) (Glucerna Shake) 120 ml PO 4X/DAY [facility] Last Admin: 12/16/19 12:54 Dose: Not Given Documented by: Ondansetron HCl (Zofran) 4 mg PO Q6H PRN PRN PRN Reason: NAUSEA Ondansetron HCl (Zofran) 4 mg IV Q8H PRN PRN PRN Reason: Nausea Last Admin: 12/16/19 12:53 Dose: 4 mg Documented by: Pantoprazole Sodium (Protonix) 20 mg PO DAILY [facility] Last Admin: 12/16/19 10:23 Dose: 20 mg Documented by: Polyethylene Glycol (Miralax) 17 gm PO DAILY [facility] Last Admin: 12/16/19 10:23 Dose: 17 gm Documented by: Pregabalin (Lyrica) 150 mg PO BID [facility] Last Admin: 12/16/19 10:22 Dose: 150 mg Documented by: Sodium Chloride () 10 - 40 ml IV UD PRN PRN Reason: SALINE FLUSH Last Admin: 12/16/19 12:52 Dose: 10 ml Documented by: Tramadol HCl (Ultram) 50 mg PO Q8H PRN PRN PRN Reason: pain Assessment/Plan This patient was seen in conjunction with COMPUTER TERMINAL OPERATOR, Oksana. I have independently interviewed and examined the patient and reviewed pertinent history, examination findings, laboratory and plan of management. I have reviewed the note and agree with the documented findings with the few additional points. In brief, patient is admitted for dysarthria, expressive aphasia and right-sided facial droop with mild right lower extremity weakness. MRI is negative for acute stroke. Head and neck CTA shows right posterior cerebral artery anatomical normal variation with absent P1 segment with supply from patent right posterior communicating artery. PT OT and speech evaluation. On aspirin, Plavix and statin. Blood pressure is controlled. Echo EF 65% with a stage I diastolic dysfunction. No ASD. Tele-neurology consulted. Overall diagnosis most likely TIA, left MCA territory cryptogenic TIA. on DAPT, aspirin Plavix and statin. Recommended Holter monitor for 30 days. Blood pressure and glucose are controlled. Rest of the comorbidities as mentioned above I have discussed my assessment with COMPUTER TERMINAL OPERATOROksana and orders have been reviewed. Code Visit Inpatient E&M: 24642 Subs Hosp L2
--- NOTE | 2019-12-16 15:29 | CASEMGMT ---
MIKE received a call from Maxine at [facility] and they can accept patient. MIKE asked about helping patient get his belongings. She said their senior linux systems administrator said they will figure something out. Shelia CARDENAS
[2019-12-16 17:36] LABS: Bedside Glucose 257 mg/dL (70-110)
[2019-12-16] MEDS: Insulin Lispro 100 UNIT/ML INSULN.PEN SC ×2 (18:07→21:45)
[2019-12-16] MEDS: Glucerna Shake 120 ML LIQUID PO (21:44)
[2019-12-16] MEDS: Atorvastatin Calcium 80 MG Tablet PO (21:45)
[2019-12-17 01:06] LABS: Bedside Glucose 206 mg/dL (70-110)
[2019-12-17 02:28] VITALS: BP 142/70; PULSE 88; RESP 16; TEMP 36.8; O2SAT 93
[2019-12-17 03:00] VITALS: PULSE 87
[2019-12-17 04:15] VITALS: BMI 25.7
[2019-12-17] MEDS: Enoxaparin 40 MG/0.4 ML Syringe SC (06:33)
[2019-12-17] MEDS: Mag Hydrox/Al Hydrox/Simeth 30 ML UDC PO (06:33)
[2019-12-17] MEDS: 0.9% Saline Lock 10 ML Syringe IV (06:42)
[2019-12-17] MEDS: Ondansetron 4 MG/2 ML Vial IV (06:42)
[2019-12-17 07:07] VITALS: PULSE 87
[2019-12-17 08:21] LABS: Bedside Glucose 220 mg/dL (70-110)
[2019-12-17 08:28] VITALS: BP 171/84; PULSE 83; RESP 16; TEMP 36.9; O2SAT 93
[2019-12-17] MEDS: Insulin Human 75/25 Kwickpen 30 UNIT SC (08:59)
[2019-12-17] MEDS: DULoxetine Hcl 60 MG Capsule PO (09:00)
[2019-12-17] MEDS: Insulin Lispro 100 UNIT/ML INSULN.PEN SC (09:00)
[2019-12-17] MEDS: Polyethylene Glycol 3350 17 GM PACKET PO (09:00)
[2019-12-17] MEDS: Aspirin 81 MG TAB.CHEW PO (09:00)
[2019-12-17] MEDS: Pantoprazole Sodium 20 MG Tablet PO (09:01)
[2019-12-17] MEDS: Pregabalin 75 MG Capsule 150 MG PO (09:08)
[2019-12-17] MEDS: Clopidogrel Bisulfate 75 MG Tablet PO (09:08)
[2019-12-17] MEDS: Lisinopril 10 MG Tablet PO (09:08)
[2019-12-17 11:18] VITALS: BMI 25.7
[2019-12-17 11:26] LABS: Bedside Glucose 159 mg/dL (70-110)
--- NOTE | 2019-12-17 11:46 | PCM.EXTCARCO ---
- Diet 12/14/19 19:13 Diet: Cardiac: Calorie-Controlled How many daily calories?: 1800 calorie - Routine Orders/Code Status Enema Type: Fleetz Enema Frequency: Daily PRN Suppository Type: Dulcolax 10mg Suppository Frequency: Daily PRN Code Status: Full Code - Suggestions for Active Care Change Position every (hours): 2 Times a day to sit in chair: 3 - Therapies Physical Therapy: Eval and Treat Occupational Therapy: Eval and Treat Speech Therapy: Eval and Treat - Problem/Diagnosis (1) TIA (transient ischemic attack) Status: Acute Current Visit: Yes (2) GERD (gastroesophageal reflux disease) Status: Chronic Current Visit: No (3) HLD (hyperlipidemia) Status: Chronic Current Visit: No (4) HTN (hypertension) Status: Chronic Current Visit: No (5) Insulin dependent diabetes mellitus Status: Chronic Current Visit: No - Allergies/Procedures Done in Hospital Allergies/Adverse Reactions: Allergies No Known Allergies Allergy (Verified 12/14/19 16:33) Procedures: 2-D Echocardiogram - Type of Care/Length of Stay Estimated LOS: Convalescent Care Less Than 30 days Type of Care Needed: Skilled Rehab Potential: Fair Prognosis: Fair - Additional Orders/Day of Discharge H&P will serve as current which was dated: 12/14/19 Day of Discharge: 12/17/19 - Dietary and Speech Recommendations Dietitian Recommendations/Changes: Rec continue Cardiac:1800 Calorie Controlled diet. Will provide ONS Glucerna 120 ml 4x/day at [facility] to provide additional lucian/pro if consumed. - Follow Up Care Primary Care Physician: Eliud Montoya MD [Primary Care Provider] - Please follow up with your Primary Care Physician in: 1 Week Please Follow Up With: Streling Montoya MD - Neurology When: 30 days
--- NOTE | 2019-12-17 13:23 | PCM.DC.SUM ---
<Oksana Obregon - Last Filed: 12/17/19 13:39> Discharge Date and Diagnosis Date of Admission: 12/14/19 Date of Discharge: 12/17/19 - Primary Discharge Diagnosis Active and Suspected Problems 1. TIA 2. Insulin-dependent diabetes mellitus 3. Hypertension 4. Hyperlipidemia 5. GERD - Secondary Discharge Diagnosis Chronic Problems Insulin dependent diabetes mellitus (Chronic) GERD (gastroesophageal reflux disease) (Chronic) HLD (hyperlipidemia) (Chronic) HTN (hypertension) (Chronic) Hospital Course and Treatment Imaging Results: Diagnostic Data Chest X-Ray 12/14/19 16:35 IMPRESSION: No active disease. Electronically Signed: Gary Singh MD at 17:06 EST Tel , Service support , Head/Neck CTA 12/14/19 16:35 IMPRESSION: 1. Limited study due to motion artifact. 2. 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 The distal segments are supplied via the patent right posterior communicating artery. 3. Otherwise normal [place]. 4. Minimal atherosclerotic plaque in the right carotid bifurcation without significant stenosis by NASCET criteria. 5. Normal left carotid and vertebral arteries. Electronically Signed: Leobardo Ashton DO at 18:06 EST Tel [phone], Service support , Brain MRI 12/15/19 12:00 IMPRESSION: Involutional changes of the brain, as described above. No acute infarct. Electronically Signed: Gary Singh MD at 14:57 EST Tel , Service support , SOC neuro Operations: None Procedures: 2-D Echocardiogram Summary of Care Provided: The patient is a 74 year old M admitted 12/14/2019 due to aphasia. 1. TIA- tele-neurology consulted. Continue aspirin, statin. Plavix added. 30-day Holter monitor at discharge. MRI negative for stroke. Echocardiogram demonstrated EF 65%, stage I diastolic dysfunction. PT/OT/ST. SNF at discharge due to ongoing debility. 2. Insulin-dependent diabetes mellitus-Home insulin regimen adjusted. Continue Humalog 75/25 30 units twice daily with breakfast and dinner along with sliding scale insulin. 3. Hypertension-stable, continue lisinopril, HCTZ regimen. 4. Hyperlipidemia-continue statin. 5. GERD-not on regimen. 6. Depression-initiated on Cymbalta, outpatient follow-up. General: Alert, Oriented x3, Cooperative HEENT: Atraumatic, PERRLA, EOMI, Normocephalic Neck: Supple, No JVD, Negative Carotid Bruits Lungs: Clear to auscultation, Normal air movement Cardiovascular: Regular rate, Regular Rhythm, Normal S1, Normal S2, No murmurs Abdomen: Bowel Sounds Present, Soft, Non Tender, Non-Distended Extremities: No clubbing, No cyanosis, No edema, Capillary Refill Less than 3 Seconds Skin: No rashes, No breakdown Musculoskeletal: No Tenderness to Palpation of Joints or Extremities Neurological: Cranial nerves II-XII grossly intact, Neuro grossly intact Psych/Mental Status: Normal Affect, Appropriate Patient seen and examined prior to discharge. Physical assessment as noted above. Patient is stable for discharge with follow up recommendations as noted above. This patient was seen by NETTE Olvera under the supervision of Dr. Collins. - Physical Exam Vitals/I&O's: Vital Signs Temp Pulse Resp BP Pulse Ox 98.4 F 83 16 171/84 H 93 12/17/19 08:28 12/17/19 08:28 12/17/19 08:28 12/17/19 08:28 12/17/19 08:28 Oxygen Delivery Method Room Air Weight: 154 lb 12.232 oz Body Mass Index (BMI) 25.7 Finger Stick Blood Glucose 203 Intake and Output for Last 24 Hours 12/15/19 12/16/19 12/17/19 23:59 23:59 23:59 Intake Total 1090 / 1330 820 / 1300 800 / 800 Output Total 300 / 300 Balance 790 / 1030 820 / 1300 800 / 800 Laboratory Results 12/16/19 17:09: POC Glucose 257 H 12/16/19 21:43: POC Glucose 206 H 12/17/19 08:15: POC Glucose 220 H 12/17/19 11:15: POC Glucose 159 H Current Medications Acetaminophen (Tylenol) 650 mg PO Q6H PRN PRN PRN Reason: Pain or Fever Al Hydroxide/Mg Hydroxide (Mylanta Ii) 30 ml PO Q6H PRN PRN PRN Reason: Gastric Burning Last Admin: 12/17/19 06:33 Dose: 30 ml Documented by: Aspirin (Aspirin, Baby) 81 mg PO DAILY@0800 [facility] Last Admin: 12/17/19 09:00 Dose: 81 mg Documented by: Atorvastatin Calcium (Lipitor) 80 mg PO QHS [facility] Last Admin: 12/16/19 21:45 Dose: 80 mg Documented by: Bisacodyl (Dulcolax) 10 mg PO DAILY PRN PRN PRN Reason: Constipation Clopidogrel Bisulfate (Plavix) 75 mg PO DAILY [facility] Last Admin: 12/17/19 09:08 Dose: 75 mg Documented by: Docusate Sodium (Colace) 200 mg PO BID PRN PRN PRN Reason: Constipation Duloxetine HCl (Cymbalta) 60 mg PO DAILY [facility] Last Admin: 12/17/19 09:00 Dose: 60 mg Documented by: Enoxaparin Sodium (Lovenox) 40 mg SC DAILY@0600 [facility] Last Admin: 12/17/19 06:33 Dose: 40 mg Documented by: Glucagon () 1 mg IM .X1 PRN PRN Reason: Hypoglycemia Dextrose (Dextrose 10%-Water) 250 mls @ 999 mls/hr IV .Q16M PRN; Protocol PRN Reason: HYPOGLYCEMIA Sodium Chloride () 250 mls @ 15 mls/hr IV .[id number] PRN PRN Reason: Saline Flush Sodium Chloride () 250 mls @ 15 mls/hr IV .[id number] PRN PRN Reason: Additional IVPB Infusion Insulin Human Lispro (Humalog Kwikpen (Bkc)) 0 unit SC ACHS [facility]; Protocol Last Admin: 12/17/19 11:15 Dose: Not Given Documented by: Insulin Lispro Protam/Lispro Human (Humalog Mix 75-25 Kwikpen (Bkc)) 30 unit SC BREAKFAST [facility] Last Admin: 12/17/19 08:59 Dose: 30 units Documented by: Insulin Lispro Protam/Lispro Human (Humalog Mix 75-25 Kwikpen (Bkc)) 30 unit SC DINNER [facility] Last Admin: 12/16/19 18:07 Dose: Not Given Documented by: Lisinopril (Zestril) 10 mg PO DAILY [facility] Last Admin: 12/17/19 09:08 Dose: 10 mg Documented by: Nutritional Formula (Lactose Free) (Glucerna Shake) 120 ml PO 4X/DAY [facility] Last Admin: 12/17/19 09:01 Dose: Not Given Documented by: Ondansetron HCl (Zofran) 4 mg PO Q6H PRN PRN PRN Reason: NAUSEA Ondansetron HCl (Zofran) 4 mg IV Q8H PRN PRN PRN Reason: Nausea Last Admin: 12/17/19 06:42 Dose: 4 mg Documented by: Pantoprazole Sodium (Protonix) 20 mg PO DAILY [facility] Last Admin: 12/17/19 09:01 Dose: 20 mg Documented by: Polyethylene Glycol (Miralax) 17 gm PO DAILY [facility] Last Admin: 12/17/19 09:00 Dose: 17 gm Documented by: Pregabalin (Lyrica) 150 mg PO BID [facility] Last Admin: 12/17/19 09:08 Dose: 150 mg Documented by: Sodium Chloride () 10 - 40 ml IV UD PRN PRN Reason: SALINE FLUSH Last Admin: 12/17/19 06:42 Dose: 10 ml Documented by: Tramadol HCl (Ultram) 50 mg PO Q8H PRN PRN PRN Reason: pain Home Medications: Medications to take at Discharge Insulin Regular, Human [Humulin R] 6 unit SQ TIDCM 11/01/14 Pregabalin [Lyrica] 75 mg PO BID 11/01/14 Hydrochlorothiazide [Hctz] 25 mg PO DAILY 12/14/19 Lisinopril 20 mg PO DAILY 12/14/19 Oxycodone HCl/Acetaminophen [Oxycodone-Acetaminophen 5-325] 1 ea PO BID PRN PRN 12/14/19 Aspirin [Aspirin, Baby] 81 mg PO DAILY@0800 tab.chew 12/17/19 Atorvastatin Calcium [Lipitor] 80 mg PO QHS tab 12/17/19 Clopidogrel Bisulfate [Plavix] 75 mg PO DAILY tab 12/17/19 Duloxetine Hcl [Cymbalta] 60 mg PO DAILY cap 12/17/19 Insulin Human 75/25 [Humalog Mix 75-25 Tania (BKC)] 30 unit SUBCUT BREAKFAST insuln.pen 12/17/19 Insulin Human 75/25 [Humalog Mix 75-25 Kwikpen (BKC)] 30 unit SUBCUT DINNER insuln.pen 12/17/19 Insulin Lispro [Humalog KwikPen] See Protocol SUBCUT ACHS insuln.pen 12/17/19 Other Amb Orders: 30-Day Event Recorder [[facility]] Location: None Selected Primary Care Physician: Eliud Montoya MD [Primary Care Provider] - Please follow up with your Primary Care Physician in: 1 Week Please Follow Up With: Sterling Montoya MD - Neurology When: 30 days Disposition: [facility] Minutes spent on discharge:: 35 Patient Condition:: Stable Medical Necessity - Tobacco Use Smoking Status: Former smoker Tobacco Use: Non-smoker Meaningful Use Info Meaningful Use Diagnoses (Choose all that apply): None applicable <Blanco Collins - Last Filed: 12/17/19 15:08> Discharge Date and Diagnosis - Secondary Discharge Diagnosis Chronic Problems Insulin dependent diabetes mellitus (Chronic) GERD (gastroesophageal reflux disease) (Chronic) HLD (hyperlipidemia) (Chronic) HTN (hypertension) (Chronic) Hospital Course and Treatment Summary of Care Provided: [] This patient was seen in conjunction with RADIO REPAIRMAN, Oksana. I have independently interviewed and examined the patient and reviewed pertinent history, examination findings, laboratory and plan of management. I have reviewed the note and agree with the documented findings with the few additional points. In brief, patient is admitted for dysarthria, expressive aphasia and LEFT-sided facial droop with mild right lower extremity weakness. MRI is negative for acute stroke. Head and neck CTA shows right posterior cerebral artery anatomical normal variation with absent P1 segment with supply from patent right posterior communicating artery. PT OT and speech evaluation. On aspirin, Plavix and statin. Blood pressure is controlled. Echo EF 65% with a stage I diastolic dysfunction. No ASD. Tele-neurology consulted. Overall diagnosis most likely TIA, left MCA territory cryptogenic TIA. on DAPT, aspirin Plavix and statin. Recommended Holter monitor for 30 days. Blood pressure and glucose are controlled. The patient has type 2 diabetes mellitus, hypertension, dyslipidemia and GERD Discharge medication reconciliation done. Discharge follow-up instructions completed. Discharge process discussed with the patient and all questions were answered to patient's satisfaction. Total time spent, exact 35 minutes on discharge meds reconciliation, examination, coordination of care with nurses and ancillary staff, review of imaging and blood test and discussion with the patient on follow-up instructions I have discussed my assessment with RADIO REPAIRMAN, Oksana and orders have been reviewed. Subjective: Generalized weakness. No specific complaint. No chest pain or shortness of breath. Objective: On physical exam General: Alert, Oriented x3, Cooperative HEENT: Atraumatic, PERRLA, EOMI, Normocephalic Neck: Supple, No JVD, Negative Carotid Bruits Lungs: Clear to auscultation, No rhonchi, No wheeze, No rales, air entry diminished in bilateral lung bases. Cardiovascular: Regular rate, Regular Rhythm, Normal S1, Normal S2, No murmurs Abdomen: Bowel Sounds Present, Soft, Non Tender Extremities: No edema, Capillary Refill Less than 3 Seconds Skin: No rashes, No breakdown Musculoskeletal: No Tenderness to Palpation of Joints or Extremities Neurological: -Bilateral lower extremity strength 5/5. Muscle strength 5/5 at major joints. Patient has left-sided facial palsy. Psych/Mental Status: Normal Affect, Appropriate - Physical Exam Vitals/I&O's: Vital Signs Temp Pulse Resp BP Pulse Ox 97.8 F 88 16 138/66 H 94 12/17/19 14:00 12/17/19 14:00 12/17/19 14:00 12/17/19 14:00 12/17/19 14:00 Oxygen Delivery Method Room Air Weight: 154 lb 12.232 oz Body Mass Index (BMI) 25.7 Finger Stick Blood Glucose 203 Intake and Output for Last 24 Hours 12/15/19 12/16/19 12/17/19 23:59 23:59 23:59 Intake Total 1090 / 1330 820 / 1300 800 / 800 Output Total 300 / 300 Balance 790 / 1030 820 / 1300 800 / 800 Laboratory Results 12/16/19 17:09: POC Glucose 257 H 12/16/19 21:43: POC Glucose 206 H 12/17/19 08:15: POC Glucose 220 H 12/17/19 11:15: POC Glucose 159 H Current Medications Acetaminophen (Tylenol) 650 mg PO Q6H PRN PRN PRN Reason: Pain or Fever Al Hydroxide/Mg Hydroxide (Mylanta Ii) 30 ml PO Q6H PRN PRN PRN Reason: Gastric Burning Last Admin: 12/17/19 06:33 Dose: 30 ml Documented by: Aspirin (Aspirin, Baby) 81 mg PO DAILY@0800 [facility] Last Admin: 12/17/19 09:00 Dose: 81 mg Documented by: Atorvastatin Calcium (Lipitor) 80 mg PO QHS [facility] Last Admin: 12/16/19 21:45 Dose: 80 mg Documented by: Bisacodyl (Dulcolax) 10 mg PO DAILY PRN PRN PRN Reason: Constipation Clopidogrel Bisulfate (Plavix) 75 mg PO DAILY [facility] Last Admin: 12/17/19 09:08 Dose: 75 mg Documented by: Docusate Sodium (Colace) 200 mg PO BID PRN PRN PRN Reason: Constipation Duloxetine HCl (Cymbalta) 60 mg PO DAILY [facility] Last Admin: 12/17/19 09:00 Dose: 60 mg Documented by: Enoxaparin Sodium (Lovenox) 40 mg SC DAILY@0600 [facility] Last Admin: 12/17/19 06:33 Dose: 40 mg Documented by: Glucagon () 1 mg IM .X1 PRN PRN Reason: Hypoglycemia Dextrose (Dextrose 10%-Water) 250 mls @ 999 mls/hr IV .Q16M PRN; Protocol PRN Reason: HYPOGLYCEMIA Sodium Chloride () 250 mls @ 15 mls/hr IV .[id number] PRN PRN Reason: Saline Flush Sodium Chloride () 250 mls @ 15 mls/hr IV .[id number] PRN PRN Reason: Additional IVPB Infusion Insulin Human Lispro (Humalog Kwikpen (Bkc)) 0 unit SC ACHS [facility]; Protocol Last Admin: 12/17/19 11:15 Dose: Not Given Documented by: Insulin Lispro Protam/Lispro Human (Humalog Mix 75-25 Kwikpen (Bkc)) 30 unit SC BREAKFAST [facility] Last Admin: 12/17/19 08:59 Dose: 30 units Documented by: Insulin Lispro Protam/Lispro Human (Humalog Mix 75-25 Kwikpen (Bkc)) 30 unit SC DINNER [facility] Last Admin: 12/16/19 18:07 Dose: Not Given Documented by: Lisinopril (Zestril) 10 mg PO DAILY [facility] Last Admin: 12/17/19 09:08 Dose: 10 mg Documented by: Nutritional Formula (Lactose Free) (Glucerna Shake) 120 ml PO 4X/DAY [facility] Last Admin: 12/17/19 09:01 Dose: Not Given Documented by: Ondansetron HCl (Zofran) 4 mg PO Q6H PRN PRN PRN Reason: NAUSEA Ondansetron HCl (Zofran) 4 mg IV Q8H PRN PRN PRN Reason: Nausea Last Admin: 12/17/19 06:42 Dose: 4 mg Documented by: Pantoprazole Sodium (Protonix) 20 mg PO DAILY [facility] Last Admin: 12/17/19 09:01 Dose: 20 mg Documented by: Polyethylene Glycol (Miralax) 17 gm PO DAILY [facility] Last Admin: 12/17/19 09:00 Dose: 17 gm Documented by: Pregabalin (Lyrica) 150 mg PO BID [facility] Last Admin: 12/17/19 09:08 Dose: 150 mg Documented by: Sodium Chloride () 10 - 40 ml IV UD PRN PRN Reason: SALINE FLUSH Last Admin: 12/17/19 06:42 Dose: 10 ml Documented by: Tramadol HCl (Ultram) 50 mg PO Q8H PRN PRN PRN Reason: pain Code Visit Inpatient E&M: 99401 Disch Hosp
--- NOTE | 2019-12-17 13:41 | CASEMGMT ---
MIKE spoke with patient and let him know that he will be discharged to [facility] today. MIKE let him know [facility] said they could work something out on getting him his belongings. MIKE asked if he needs SW to arrange transportation. He said his friend will be able to take him. MIKE told him staff here will wheel him down in a wheelchair and help him in the vehicle. Then once he gets to [facility] staff can help him inside his friend just needs to let them know he needs help. MIKE notified RN of plan as well as Maxine at [facility]. MIKE completed convalescent on HENS. MIKE faxed orders to [facility]. Plan: [facility] under skilled level of care on a convalescent stay. Patient's friend transported him via private vehicle. Shelia CARDENAS
[2019-12-17 14:00] VITALS: BP 138/66; PULSE 88; RESP 16; TEMP 36.6; O2SAT 94
--- NOTE | 2019-12-17 15:03 | PHA.DC.MR ---
Pharmacy Service has performed discharge medication reconciliation for this patient. The patient's discharge medication list was reviewed for discrepancies and discrepancies were resolved. Home Medications Insulin Regular, Human [Humulin R] 6 unit SQ TIDCM 11/01/14 Pregabalin [Lyrica] 75 mg PO BID 11/01/14 Hydrochlorothiazide [Hctz] 25 mg PO DAILY 12/14/19 Lisinopril 20 mg PO DAILY 12/14/19 Oxycodone HCl/Acetaminophen [Oxycodone-Acetaminophen 5-325] 1 ea PO BID PRN PRN 12/14/19 Aspirin [Aspirin, Baby] 81 mg PO DAILY@0800 tab.chew 12/17/19 Atorvastatin Calcium [Lipitor] 80 mg PO QHS tab 12/17/19 Clopidogrel Bisulfate [Plavix] 75 mg PO DAILY tab 12/17/19 Duloxetine Hcl [Cymbalta] 60 mg PO DAILY cap 12/17/19 Insulin Human 75/25 [Humalog Mix 75-25 Kwikpen (BKC)] 30 unit SUBCUT BREAKFAST insuln.pen 12/17/19 Insulin Human 75/25 [Humalog Mix 75-25 Kwikpen (BKC)] 30 unit SUBCUT DINNER insuln.pen 12/17/19 Insulin Lispro [Humalog KwikPen] See Protocol SUBCUT ACHS insuln.pen 12/17/19
== END 2019-12-17 15:25 | disposition skilled nursing facility (03) | DRG 69 ==
LOC: ED 18:20 → PCU 19:53
PROVIDERS: Physician Assistant; Admitting Provider Family Medicine; Emergency Provider Emergency Medicine; PCP Family Medicine; Visit Provider Internal Medicine
DX: G45.9 Transient cerebral ischemic attack, unspecified (principal); E11.9 Type 2 diabetes mellitus without complications; I10 Essential (primary) hypertension; E78.5 Hyperlipidemia, unspecified; K21.9 Gastro-esophageal reflux disease without esophagitis; Z79.4 Long term (current) use of insulin; Z87.891 Personal history of nicotine dependence
CPT/HCPCS: 36415; 70496; 70498; 70551; 71045; 80048; 80061; 82962; 83036; 83735; 84443; 84484; 85025; 85610; 85730; 92507; 92526; 92610; 93005; 93306; 97116; 97163; 97167; 97530; 97802; 99285; J7030; Q9967; A4216; J2405

== ENCOUNTER 2019-12-24 17:06 | Inpatient (IN) | payer MEDICARE, MEDICAID, SELFPAY ==
[2019-12-24] VITALS (8 sets, daily range): BP systolic 96–158; BP diastolic 53–85; PULSE 96–122; RESP 16–18; TEMP 36.2–36.8; O2SAT 94–98; BMI 23.3; BMI 22.2; BMI 22.3
--- NOTE | 2019-12-24 17:48 | CT_ITS ---
STUDY: CT BRAIN WITHOUT CONTRAST REASON FOR EXAM: Male, 74 years old. SLURRED SPEECH, WEAKNESS @ 1200 TODAY. HX OF CVA 1WK AGO. RADIATION DOSAGE (If Supplied By Facility): CTDIvol = ( 44.99 ) mGy, DLP = ( 846.73 ) mGycm TECHNIQUE: Transaxial CT imaging of the brain was performed without administration of intravenous contrast material. Individualized dose optimization techniques were used for this CT. COMPARISON: December 14, 2019 FINDINGS: Normal soft tissue structures. Normal calvarium. Normal size ventricles and extra-axial spaces for the patient''s age. Mild white matter microangiopathic ischemic changes of the cerebral hemispheres. Normal basal ganglia and thalami. Normal brainstem. Normal cerebellum. There is no intracranial hemorrhage. There are no findings of an acute ischemic infarction. Normal visualized paranasal sinuses. CT/Brain/Head without Contrast IMPRESSION: Age-related changes of the brain. Electronically Signed: Toni Villagran DO at 18:55 EST Tel [phone], Service support ,
--- NOTE | 2019-12-24 17:48 | EKG12_ITS ---
Test Reason : NEURO Blood Pressure : / mmHG Vent. Rate : 117 BPM Atrial Rate : 117 BPM P-R Int : 114 ms QRS Dur : 098 ms QT Int : 326 ms P-R-T Axes : 084 050 093 degrees QTc Int : 454 ms Poor data quality, interpretation may be adversely affected Sinus tachycardia Biatrial enlargement Nonspecific ST and T wave abnormality Abnormal ECG Confirmed by LY MULLIGAN, NBAOR ([id number]), acquisition editor SHAHANA ESCALERA ([id number]) on 12/27/2019 3:30:32 PM Referred By: LUMA Confirmed By:NABOR MODI MD
[2019-12-24 18:01] LABS: Absolute Lymphocyte Count 1.22 X10^3/uL (0.83-4.51); Absolute Neutrophil Count 13.9 X10^3/uL (2.0-7.7); Basophil# 0.05 X10^3/uL; Basophil% 0.3 % (0-1); Lymphocyte # 1.22 X10^3/ul (4.0); Lymphocyte % 7.7 % (19-41); Mean Corp Hgb Conc 31.5 g/dL (32-36); Mean Corpuscular Hgb 26.2 pg (27.0-32.0); Mean Corpuscular Volume 83.1 fL (80-94); Mean Platelet Vol. 11.7 fl (6.2-12.0); Monocyte# 0.64 X10^3/uL; NRBC Flagged by Analyzer 0 % (0-5); Neutrophil # 13.88 X10^3/uL (2.7-7.7); Neutrophil % 87.7 % (47-70); Platelet Count 302 K/mm3 (150-450); RBC Distribution Width CV 17.3 % (11.6-14.6); RBC Distribution Width SD 44.9 fl (35.1-43.9); Red Blood Count 7.33 M/mm3 (4.6-6.2); White Blood Count 15.8 K/mm3 (4.4-11.0)
[2019-12-24 18:06] LABS: International Normalized Ratio 1.1; Prothrombin Time (Protime)PT. 14.3 SECONDS (11.7-14.9)
[2019-12-24 18:15] LABS: Hematocrit 60.9 % (40-54)
[2019-12-24 18:17] LABS: Hemoglobin 19.2 g/dL (13.0-16.5); POSITIVE COUNT NO; POSITIVE DIFFERENTIAL YES; POSITIVE MORPHOLOGY NO
[2019-12-24 18:18] LABS: Differential Indicated SCAN CRITERIA MET; ERROR FUNCTION FLAG NO
[2019-12-24 18:23] LABS: ALB/GLOB Ratio 0.6 RATIO (0.9-2.4); AST(SGOT) 14 U/L (15-37); Alanine Aminotransfer ALT/SGPT 25 U/L (16-61); Alkaline Phosphatase 111 U/L (45-117); Anion Gap 8 (5-15); BUN 64 mg/dL (7-18); BUN/Creat Ratio 31.1 RATIO (10-20); Calcium,Total 9.4 mg/dL (8.5-10.1); Chloride 98 mmol/L (98-107); Creatinine, Serum 2.06 mg/dL (0.70-1.30); EST Glomerular Filtration Rate 34 mL/min (>60); Est Glom Filt Rate - Afr Amer 41 mL/min (>60); Estimated Creatinine Clearance 28.39 ml/min; Globulin 5.3 g/dL (2.2-4.2); Glucose 482 mg/dL (74-106); Potassium 5.3 mmol/L (3.5-5.1); Protein, Total 8.3 g/dL (6.4-8.2); Sodium Level 134 mmol/L (136-145)
[2019-12-24 18:36] LABS: Platelet Estimate ADEQUATE (ADEQ); Red Cell Morphology NORM C+C NORMAL (NORM C&C)
[2019-12-24] MEDS: 0.9% Normal Saline 1,000 ML 1000 ML IV ×2 (19:06→20:16)
[2019-12-24] MEDS: Acetaminophen 500 MG Tablet 1000 MG PO (19:43)
[2019-12-24 19:46] LABS: Bacteria 0 SEEN /hpf (None Seen); Mucous, Urine 0 SEEN /hpf (<or=2+); Squamous Epithelial Cells - UA 0 SEEN /hpf (0-5); White Blood Cells 0 SEEN /hpf (0-5)
[2019-12-24 19:47] LABS: Color, Urine Yellow (Yellow); Glucose, Dipstick 1000 mg/dl (Normal); Ketone-Dipstick 5 mg/dl (Negative); Leukocyte Esterase-Dipstick Negative /ul (Negative); Nitrite-Dipstick Negative (Negative); Occult Blood-Urine 10 /ul (Negative); Protein-Dipstick 15 mg/dl (Negative); Specific Gravity, Urine 1.015 (1.002-1.030); Urine Bilirubin Dipstick Negative (Negative); Urine Clarity Clear (Clear); Urine Urobilinogen Normal (Normal)
[2019-12-24 19:57] LABS: Hyaline Cast 0-5 SEEN /lpf (0-5)
[2019-12-24 19:59] LABS: Red Blood Cells-Urine 0-5 SEEN /hpf (0-5)
[2019-12-24] MEDS: Insulin Lispro 100 UNIT/ML INSULN.PEN 10 UNIT SC (20:16)
[2019-12-24 21:41] LABS: Bedside Glucose 383 mg/dL (70-110)
--- NOTE | 2019-12-24 21:46 | ED.VISSUMM ---
- ER Visit Summary Date of Service: 12/24/19 Chief Complaint: Slurred speech History of Present Illness: The patient is a 74 M who presents from extended-care facility with slurred speech that was noticed today. Patient is at the extended care facility for rehab from a stroke 1 week ago. Caregivers there is state that the patient speech is more slurred than usual. Patient does admit to a mild headache. Patient states it is aching. Patient denies any paresthesias or weakness. Patient does admit to some pain in his neck and back. Patient does admit to a cough. Physical Examination: Vital signs are stable except for tachycardia of 120. Patient is afebrile. Patient is in no acute distress. Oral mucosa is pink and moist. Neck is supple. Trachea is midline. There is no JVD. Heart was regular rate and rhythm. Lungs are clear and equal bilaterally. Abdomen is soft. Bowel sounds are normal. There is no tenderness. Cranial nerves II through XII are intact. Strength is 5/5 bilateral in the upper and lower extremities. There are no sensory deficits noted. Skin is warm and dry. There is no rash noted. Test Results: EKG showed a sinus tachycardia with a rate of 117. There is left ventricular hypertrophy noted. There are nonspecific ST-T wave changes noted. CT scan of the brain was obtained. There are chronic changes but no acute intracranial abnormality. CBC shows a mild leukocytosis of 15.8. Hemoglobin was 19.2. Comprehensive metabolic profile showed a creatinine of 2.06 and a BUN of 64. Glucose was elevated at 482. Potassium was slightly elevated at 5.3. Urinalysis does not show any evidence of urinary tract infection. Serum ketones were negative. Emergency Department Course and Treatment: Patient has an NIH score of 0. I do not feel the patient has slurred speech I am able to understand him. Patient was given a dose of Tylenol here. Patient was also given a dose of Humalog 10 units subcu. Patient was given 2 L of IV fluids. Patient is blood sugar was improving. The case was discussed with the hospitalist. He will admit the patient to his service. Patient understood and was agreeable with the plan. All questions were answered. Disposition: Admit to hospital Impression: 1. Acute kidney injury 2. Hyperglycemia This note was generated with [employer] software. It may contain incorrect words, spelling, and punctuation that were not noted in review of the chart prior to signing ED Disposition - Plan for ED Patient: Disposition: Acute Care [facility] Diagnosis: Acute kidney injury, Hyperglycemia
[2019-12-24 23:08] LABS: Osmolality, Serum 335 mOsm/KG (280-301)
[2019-12-24] MEDS: Insulin Lispro 100 UNIT/ML INSULN.PEN SC (23:32)
[2019-12-24] MEDS: 0.9% Normal Saline 1,000 ML 100 ML IV (23:33)
[2019-12-24 23:40] LABS: Bedside Glucose 378 mg/dL (70-110)
[2019-12-25] VITALS (9 sets, daily range): BP systolic 108–138; BP diastolic 53–65; PULSE 82–102; RESP 16–20; TEMP 36.5–36.9; O2SAT 94–99; BMI 22.2
--- NOTE | 2019-12-25 00:10 | PCM.HP.STD ---
Problem List (1) Acute kidney injury Status: Acute (2) Hyperglycemia Status: Acute (3) Insulin dependent diabetes mellitus Status: Chronic (4) GERD (gastroesophageal reflux disease) Status: Chronic (5) HLD (hyperlipidemia) Status: Chronic (6) HTN (hypertension) Status: Chronic (7) Stroke-like symptoms Status: Acute History of Present Illness Date of Admission: 12/25/19 Chief Complaint: SLURRY SPEECH The patient is a 74 year old M with a significant history of hypertension; hyperlipidemia and GERD who was recently admitted at our hospital on 12/14/2019 and discharged on 12/17/2019 with a probable TIA and [facility] to the [facility] presenting because of reported worsening slurred speech. Reportedly NIH at emergency department was 0. Patient was found to have severely elevated blood glucose and creatinine. Past Medical History Past Medical History (Chronic Problems): Chronic Problems Insulin dependent diabetes mellitus (Chronic) GERD (gastroesophageal reflux disease) (Chronic) HLD (hyperlipidemia) (Chronic) HTN (hypertension) (Chronic) Allergies No Known Allergies Allergy (Verified 12/24/19 17:32) Home Medications: Ambulatory Orders Medication Instructions Recorded Insulin Regular, Human [Humulin R] 5 unit SQ TIDCM 11/01/14 Pregabalin [Lyrica] 75 mg PO BID 11/01/14 Hydrochlorothiazide [Hctz] 25 mg PO DAILY 12/14/19 Lisinopril 20 mg PO DAILY 12/14/19 Oxycodone HCl/Acetaminophen 1 ea PO BID PRN PRN 12/14/19 [Oxycodone-Acetaminophen 5-325] Aspirin [Aspirin, Baby] 81 mg PO DAILY@0800 tab.chew 12/17/19 Atorvastatin Calcium [Lipitor] 80 mg PO QHS tab 12/17/19 Clopidogrel Bisulfate [Plavix] 75 mg PO DAILY tab 12/17/19 Duloxetine Hcl [Cymbalta] 60 mg PO DAILY cap 12/17/19 Insulin Glargine [Lantus (BKC)] 10 units SUBCUT QHS 12/24/19 Mirtazapine [Remeron] 7.5 mg PO DAILY 12/24/19 Pantoprazole Sodium [Protonix] 40 mg PO DAILY 12/24/19 Surgical History: - - Patient is unable to provide information. However there is a healed wound on his abdomen that appears surgical. 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 Denies: Chills, Fever, Weight Change HEENT: Denies: Head Aches, Sinus Congestion, Sinus Drainage Cardiovascular: Denies: Chest Pain, Palpitations Respiratory: Denies: Cough, Shortness of breath at rest, Sputum production Gastrointestinal: Denies: Abdominal Pain, Nausea, Vomiting Genitourinary: Denies: Dysuria Musculoskeletal: Denies: Joint Pain, Joint Tenderness Skin: Denies: Rash, Wounds Neurological: Reports: Slurred speech - Reportedly at the [facility].. Denies: Numbness, Tingling Psychiatric: Denies: Anxiety, Depression, Homicidal Ideations, Suicidal Ideations Hematologic/ Lymphatic: Denies: Easy Bruising, Easy Bleeding VTE Information - Inpt Only VTE Present on Admission: No VTE Mechan Device Prophylaxis: None VTE Pharm Prophylaxis ordered?: Yes Patient Problems: Active and Suspected Problems Acute kidney injury (Acute) Hyperglycemia (Acute) Stroke-like symptoms (Acute) - Physical Exam Vitals/I&O's: Vital Signs Temp Pulse Resp BP Pulse Ox 97.1 F L 103 H 18 116/65 94 12/24/19 23:00 12/24/19 23:00 12/24/19 23:00 12/24/19 23:00 12/24/19 23:50 Oxygen Flow Rate (L/min) 2 Oxygen Delivery Method Nasal Cannula Weight: 62.6 kg Body Mass Index (BMI) 22.2 Finger Stick Blood Glucose 383 Intake and Output for Last 24 Hours 12/23/19 12/24/19 12/25/19 23:59 23:59 23:59 Intake Total 1999 Balance 1999 General: Alert, Confused HEENT: Atraumatic, PERRLA, Normocephalic Neck: Supple, No JVD, Negative Carotid Bruits Lungs: Clear to auscultation, Normal air movement Cardiovascular: Regular rate, Normal S1, Normal S2, No murmurs Abdomen: Bowel Sounds Present, Soft, Non Tender Extremities: No edema, Capillary Refill Less than 3 Seconds Skin: No rashes, No breakdown Musculoskeletal: No Tenderness to Palpation of Joints or Extremities Neurological: Cranial nerves II-XII grossly intact, - - Difficult to follow commands. No dysmetria. Strength 5 out of 5 bilateral. Psych/Mental Status: Normal Affect, Appropriate Laboratory Results 12/24/19 17:13: WBC 15.8 H, RBC 7.33 H, Hgb 19.2 H*, Hct 60.9 H, MCV 83.1, MCH 26.2 L, MCHC 31.5 L, RDW Std Deviation 44.9 H, RDW Coeff of Vivian 17.3 H, Plt Count 302, MPV 11.7, Immature Gran % (Auto) 0.300, Neut % (Auto) 87.7 H, Lymph % (Auto) 7.7 L, [place] % (Auto) 4.0, Eos % (Auto) 0.0, Baso % (Auto) 0.3, Absolute Neuts (auto) 13.9 H, Absolute Lymphs (auto) 1.22, Nucleated RBC % 0, Diff Path Review February, Platelet Estimate ADEQUATE, RBC Morphology NORM C+C 12/24/19 17:13: PT 14.3, INR 1.1 12/24/19 17:13: Sodium 134 L, Potassium 5.3 H, Chloride 98, Carbon Dioxide 28.0, Anion Gap 8, BUN 64 H, Creatinine 2.06 H, Estim Creat Clear Calc 28.39, Est GFR (MDRD) Af Amer 41 L, Est GFR (MDRD) Non-Af 34 L, BUN/Creatinine Ratio 31.1 H, Glucose 482 H*, Calcium 9.4, Total Bilirubin 0.80, AST 14 L, ALT 25, Alkaline Phosphatase 111, Troponin I < 0.015, Total Protein 8.3 H, Albumin 3.0 L, Globulin 5.3 H, Albumin/Globulin Ratio 0.6 L 12/24/19 17:13: Acetone Level NEGATIVE 12/24/19 17:15: Serum Osmolality 335 H 12/24/19 19:40: Urine Color Yellow, Urine Clarity Clear, Urine pH 5.0, Ur Specific [place] 1.015, Urine Protein 15 H, Urine Glucose (UA) 1000 H, Urine Ketones 5 H, Urine Occult Blood 10 H, Urine Nitrite Negative, Urine Bilirubin Negative, Urine Urobilinogen Normal, Ur Leukocyte Esterase Negative, Urine RBC 0-5 SEEN, Urine WBC 0 SEEN, Ur Squamous Epith Cells 0 SEEN, Urine Bacteria 0 SEEN, Hyaline Casts 0-5 SEEN, Urine Mucus 0 SEEN 12/24/19 21:31: POC Glucose 383 H 12/24/19 23:31: POC Glucose 378 H Current Medications Acetaminophen (Tylenol) 650 mg PO Q6H PRN PRN PRN Reason: Pain Score 1-10/Temp > 100.7 F Aspirin (Aspirin, Baby) 81 mg PO DAILY@0800 [facility] Atorvastatin Calcium (Lipitor) 80 mg PO QHS [facility] Clopidogrel Bisulfate (Plavix) 75 mg PO DAILY [facility] Duloxetine HCl (Cymbalta) 60 mg PO DAILY [facility] Enoxaparin Sodium (Lovenox) 30 mg SC DAILY [facility] Glucagon () 1 mg IM .X1 PRN PRN Reason: Hypoglycemia Sodium Chloride () 1,000 mls @ 100 mls/hr IV .Q10H [facility] Last Admin: 12/24/19 23:33 Dose: 100 mls/hr Documented by: Dextrose (Dextrose 10%-Water) 250 mls @ 999 mls/hr IV .Q16M PRN; Protocol PRN Reason: HYPOGLYCEMIA Insulin Glargine (Lantus (Bkc)) 15 units SC QHS [facility] Last Admin: 12/24/19 23:33 Dose: 15 u Documented by: Insulin Human Lispro (Humalog Kwikpen (Bkc)) 0 unit SC ACHS & 3AM [facility]; Protocol Last Admin: 12/24/19 23:32 Dose: 10 u Documented by: Insulin Human Lispro (Humalog Kwikpen (Bkc)) 8 unit SC TIDAC [facility] Labetalol HCl (Trandate) 10 mg IV Q10M PRN PRN Reason: MAINTAIN BP < 220/120 Stop: 12/25/19 22:47 Melatonin (Melatonin) 3 mg PO QHS PRN PRN PRN Reason: INSOMNIA Mirtazapine (Remeron) 7.5 mg PO DAILY@2200 [facility] Ondansetron HCl (Zofran) 4 mg IV Q8H PRN PRN PRN Reason: NAUSEA/VOMITING Oxycodone HCl (Oxyir) 5 mg PO BID PRN PRN PRN Reason: Pain Score 6-10/10 Pantoprazole Sodium (Protonix) 40 mg PO DAILY [facility] Pregabalin (Lyrica) 75 mg PO BID [facility] Assessment/Plan All Active Problems Acute kidney injury (Acute) Hyperglycemia (Acute) Stroke-like symptoms (Acute) The patient is a 74 year old M with a significant history of hypertension; hyperlipidemia and GERD who was recently admitted at a hospital on 12/14/2019 and discharged on 12/17/2019 with a probable TIA and was discharge to the [facility] presenting because of reported worsening slurred speech and elevated blood glucose; as well as worsening creatinine consistent with hyperglycemia and DIONY. DIONY On presentation creatinine was 2.08. Review of old records shows a creatinine baseline around 1.0. BUN was 64. Review of old records shows BUN 9 days ago was 17. Likely prerenal from dehydration. Serum osmolality was 335. Received normal saline bolus in the emergency department. Will place patient on maintenance IV infusion. Trend BMP. Avoid nephrotoxic's. Hold hydrochlorothiazide and lisinopril. Strokelike symptoms Reported increase slurry speech and weakness. Most likely symptoms are from DIONY and hyperglycemia. However will let OT, PT and ST to work with patient. Permissive hypertension per stroke protocol with labetalol. Hold home blood pressure medication of lisinopril and hydrochlorothiazide.. Aspirin, Plavix and high intensity statin continued. Patient is on Holter monitor because of stroke on previous admission. Hold home narcotic because of encephalopathy. Diabetes mellitus with hyperglycemia. Blood glucose on presentation was 482. Serum osmolality was 335. Received IV fluid bolus in the emergency department. Will continue on maintenance IV infusion. Escalate prandial and basal insulin. Add correction scale insulin. Depression Cymbalta continued Remeron continued. Neuropathy Lyrica continued DVT prophylaxis Subcutaneous Lovenox. Inpatient E&M: 22418 In Hosp L3
[2019-12-25] MEDS: Insulin Lispro 100 UNIT/ML INSULN.PEN SC ×3 (03:20→22:25)
[2019-12-25 03:26] LABS: Bedside Glucose 268 mg/dL (70-110)
[2019-12-25 06:42] LABS: Absolute Lymphocyte Count 1.53 X10^3/uL (0.83-4.51); Absolute Neutrophil Count 15.3 X10^3/uL (2.0-7.7); Basophil# 0.04 X10^3/uL; Basophil% 0.2 % (0-1); Eosinophil# 0.02 X10^3/uL; Eosinophils% 0.1 % (0-5); Hemoglobin 17.8 g/dL (13.0-16.5); Lymphocyte # 1.53 X10^3/ul (4.0); Lymphocyte % 8.6 % (19-41); Mean Corp Hgb Conc 31.7 g/dL (32-36); Mean Corpuscular Hgb 26.5 pg (27.0-32.0); Mean Corpuscular Volume 83.6 fL (80-94); Monocyte# 0.91 X10^3/uL; Monocyte% 5.1 % (0-10); NRBC Flagged by Analyzer 0 % (0-5); Neutrophil # 15.28 X10^3/uL (2.7-7.7); Neutrophil % 85.6 % (47-70); Platelet Count 274 K/mm3 (150-450); RBC Distribution Width CV 16.7 % (11.6-14.6); RBC Distribution Width SD 46.1 fl (35.1-43.9); Red Blood Count 6.72 M/mm3 (4.6-6.2); White Blood Count 17.9 K/mm3 (4.4-11.0)
[2019-12-25 06:47] LABS: Hematocrit 56.2 % (40-54)
[2019-12-25 07:15] LABS: Anion Gap 5 (5-15); BUN 53 mg/dL (7-18); BUN/Creat Ratio 39.6 RATIO (10-20); Calcium,Total 8.5 mg/dL (8.5-10.1); Chloride 109 mmol/L (98-107); Cholesterol 109 mg/dL (200); Creatinine, Serum 1.34 mg/dL (0.70-1.30); EST Glomerular Filtration Rate 55 mL/min (>60); Est Glom Filt Rate - Afr Amer 67 mL/min (>60); Estimated Creatinine Clearance 42.82 ml/min; Glucose 198 mg/dL (74-106); High Density Lipoprotein 47 mg/dL; Potassium 4.7 mmol/L (3.5-5.1); Sodium Level 142 mmol/L (136-145); Triglycerides 83 mg/dL; Very Low Density Lipoprotein 17 mg/dL (5-40)
[2019-12-25] MEDS: Aspirin 81 MG TAB.CHEW PO (08:28)
[2019-12-25] MEDS: Insulin Lispro 100 UNIT/ML INSULN.PEN 8 UNIT SC (08:29)
[2019-12-25 09:10] LABS: Bedside Glucose 178 mg/dL (70-110)
[2019-12-25] MEDS: DULoxetine Hcl 60 MG Capsule PO (10:03)
[2019-12-25] MEDS: Enoxaparin 30 MG/0.3 ML Syringe SC (10:03)
[2019-12-25] MEDS: Pregabalin 75 MG Capsule PO ×2 (10:04→22:37)
[2019-12-25] MEDS: Pantoprazole Sodium 40 MG Tablet PO (10:04)
[2019-12-25] MEDS: Clopidogrel Bisulfate 75 MG Tablet PO (10:04)
[2019-12-25] MEDS: 0.9% Normal Saline 1,000 ML 100 ML IV ×2 (11:02→20:10)
[2019-12-25] MEDS: 0.9% Saline Lock 10 ML Syringe IV (11:04)
[2019-12-25 12:11] LABS: Bedside Glucose 194 mg/dL (70-110)
[2019-12-25 16:16] LABS: Bedside Glucose 174 mg/dL (70-110)
[2019-12-25] MEDS: Mirtazapine 15 MG Tablet 7.5 MG PO (22:25)
[2019-12-25] MEDS: Atorvastatin Calcium 80 MG Tablet PO (22:25)
[2019-12-25 22:45] LABS: Bedside Glucose 218 mg/dL (70-110)
[2019-12-26] VITALS (8 sets, daily range): BP systolic 113–145; BP diastolic 61–78; PULSE 77–102; RESP 18; TEMP 36.6–36.9; O2SAT 93–96; BMI 22.2
[2019-12-26 03:06] LABS: Bedside Glucose 202 mg/dL (70-110)
[2019-12-26] MEDS: 0.9% Normal Saline 1,000 ML 100 ML IV ×2 (05:57→16:04)
[2019-12-26 06:04] LABS: Absolute Lymphocyte Count 1.55 X10^3/uL (0.83-4.51); Absolute Neutrophil Count 11.4 X10^3/uL (2.0-7.7); Basophil# 0.04 X10^3/uL; Basophil% 0.3 % (0-1); Eosinophil# 0.01 X10^3/uL; Eosinophils% 0.1 % (0-5); Hemoglobin 17.1 g/dL (13.0-16.5); Lymphocyte # 1.55 X10^3/ul (4.0); Lymphocyte % 11.1 % (19-41); Mean Corp Hgb Conc 30.6 g/dL (32-36); Mean Platelet Vol. 11.5 fl (6.2-12.0); Monocyte# 0.85 X10^3/uL; Monocyte% 6.1 % (0-10); NRBC Flagged by Analyzer 0 % (0-5); Neutrophil # 11.41 X10^3/uL (2.7-7.7); Platelet Count 247 K/mm3 (150-450); RBC Distribution Width SD 47.6 fl (35.1-43.9); Red Blood Count 6.58 M/mm3 (4.6-6.2); White Blood Count 13.9 K/mm3 (4.4-11.0)
[2019-12-26 06:52] LABS: Hematocrit 55.9 % (40-54)
[2019-12-26 07:04] LABS: Anion Gap 8 (5-15); BUN 36 mg/dL (7-18); BUN/Creat Ratio 32.1 RATIO (10-20); Calcium,Total 8.4 mg/dL (8.5-10.1); Chloride 108 mmol/L (98-107); Creatinine, Serum 1.12 mg/dL (0.70-1.30); EST Glomerular Filtration Rate 68 mL/min (>60); Est Glom Filt Rate - Afr Amer 82 mL/min (>60); Estimated Creatinine Clearance 51.24 ml/min; Glucose 231 mg/dL (74-106); Sodium Level 141 mmol/L (136-145)
[2019-12-26] MEDS: Insulin Lispro 100 UNIT/ML INSULN.PEN SC ×3 (08:04→17:10)
[2019-12-26] MEDS: Insulin Lispro 100 UNIT/ML INSULN.PEN 8 UNIT SC ×2 (08:06→11:23)
[2019-12-26] MEDS: Aspirin 81 MG TAB.CHEW PO (08:07)
[2019-12-26 08:36] LABS: Bedside Glucose 244 mg/dL (70-110)
--- NOTE | 2019-12-26 09:51 | NURSING ---
This RN called [facility] and spoke with Carli regarding pt dentures. Carli stated she was going to attempt to contact of relatives/contacts in order to get dentures to pt here at [facility]. She also states that son is not involved in care.
[2019-12-26] MEDS: Clopidogrel Bisulfate 75 MG Tablet PO (10:09)
[2019-12-26] MEDS: Pregabalin 75 MG Capsule PO ×2 (10:09→20:53)
[2019-12-26] MEDS: Enoxaparin 30 MG/0.3 ML Syringe SC (10:09)
[2019-12-26] MEDS: Pantoprazole Sodium 40 MG Tablet PO (10:09)
[2019-12-26] MEDS: DULoxetine Hcl 60 MG Capsule PO (10:09)
[2019-12-26 11:30] LABS: Bedside Glucose 310 mg/dL (70-110)
--- NOTE | 2019-12-26 13:39 | PCM.PN.HOSP ---
<David Ferreira - Last Filed: 12/26/19 13:39> Patient Problems: Active and Suspected Problems Acute kidney injury (Acute) Hyperglycemia (Acute) Stroke-like symptoms (Acute) Reason for Visit: encephalopathy Subjective: Pt resting comfortably in bed NAD. No nausea/vomiting/diarrhea. No cp. no SOB. no fever/chills.Pt still confused, he did not know he was in [facility] and did not remember being admitted here recently. He states he thought was in [facility]. Vitals/I&O's: Vital Signs Temp Pulse Resp BP Pulse Ox 98.5 F 102 H 18 113/62 95 12/26/19 09:00 12/26/19 09:00 12/26/19 09:00 12/26/19 09:00 12/26/19 09:00 Oxygen Flow Rate (L/min) 2 Oxygen Delivery Method Room Air Weight: 138 lb 0.15 oz Body Mass Index (BMI) 22.2 Finger Stick Blood Glucose 383 Intake and Output for Last 24 Hours 12/24/19 12/25/19 12/27/19 23:59 23:59 00:59 Intake Total 1999 2328.33 / 2568.33 743.33 / 743.33 Output Total 0 / 0 875 / 1275 700 / 700 Balance 1999 1453.33 / 1293.33 43.33 / 43.33 General: Alert, Cooperative, Confused HEENT: Atraumatic, PERRLA, EOMI, Normocephalic Neck: Supple, No JVD, Negative Carotid Bruits Lungs: Clear to auscultation, Normal air movement Cardiovascular: Regular rate, No murmurs Abdomen: Bowel Sounds Present, Soft, Non Tender Extremities: No edema, Capillary Refill Less than 3 Seconds Skin: No rashes, No breakdown Musculoskeletal: No Tenderness to Palpation of Joints or Extremities Neurological: Cranial nerves II-XII grossly intact Psych/Mental Status: Normal Affect, Appropriate Laboratory Results 12/25/19 16:10: POC Glucose 174 H 12/25/19 22:23: POC Glucose 218 H 12/26/19 01:58: POC Glucose 202 H 12/26/19 04:52: WBC 13.9 H, RBC 6.58 H, Hgb 17.1 H, Hct 55.9 H, MCV 85.0, MCH 26.0 L, MCHC 30.6 L, RDW Std Deviation 47.6 H, RDW Coeff of Vivian 17.0 H, Plt Count 247, MPV 11.5, Immature Gran % (Auto) 0.400, Neut % (Auto) 82.0 H, Lymph % (Auto) 11.1 L, [place] % (Auto) 6.1, Eos % (Auto) 0.1, Baso % (Auto) 0.3, Absolute Neuts (auto) 11.4 H, Absolute Lymphs (auto) 1.55, Nucleated RBC % 0 12/26/19 04:52: Sodium 141, Potassium 5.0, Chloride 108 H, Carbon Dioxide 25.0, Anion Gap 8, BUN 36 H, Creatinine 1.12, Estim Creat Clear Calc 51.24, Est GFR (MDRD) Af Amer 82, Est GFR (MDRD) Non-Af 68, BUN/Creatinine Ratio 32.1 H, Glucose 231 H, Calcium 8.4 L 12/26/19 07:53: POC Glucose 244 H 12/26/19 11:22: POC Glucose 310 H Current Medications Acetaminophen (Tylenol) 650 mg PO Q6H PRN PRN PRN Reason: Pain Score 1-10/Temp > 100.7 F Aspirin (Aspirin, Baby) 81 mg PO DAILY@0800 [facility] Last Admin: 12/26/19 08:07 Dose: 81 mg Documented by: Atorvastatin Calcium (Lipitor) 80 mg PO QHS [facility] Last Admin: 12/25/19 22:25 Dose: 80 mg Documented by: Clopidogrel Bisulfate (Plavix) 75 mg PO DAILY [facility] Last Admin: 12/26/19 10:09 Dose: 75 mg Documented by: Duloxetine HCl (Cymbalta) 60 mg PO DAILY [facility] Last Admin: 12/26/19 10:09 Dose: 60 mg Documented by: Enoxaparin Sodium (Lovenox) 30 mg SC DAILY [facility] Last Admin: 12/26/19 10:09 Dose: 30 mg Documented by: Glucagon () 1 mg IM .X1 PRN PRN Reason: Hypoglycemia Sodium Chloride () 1,000 mls @ 100 mls/hr IV .Q10H [facility] Last Admin: 12/26/19 05:57 Dose: 100 mls/hr Documented by: Dextrose (Dextrose 10%-Water) 250 mls @ 999 mls/hr IV .Q16M PRN; Protocol PRN Reason: HYPOGLYCEMIA Insulin Glargine (Lantus (Bk)) 15 units SC QHS [facility] Last Admin: 12/25/19 22:25 Dose: 15 u Documented by: Insulin Human Lispro (Humalog Kwikpen (Bk)) 0 unit SC ACHS & 3AM [facility]; Protocol Last Admin: 12/26/19 11:24 Dose: 6 u Documented by: Insulin Human Lispro (Humalog Kwikpen ([facility])) 8 unit SC TIDAC [facility] Last Admin: 12/26/19 11:23 Dose: 8 u Documented by: Melatonin (Melatonin) 3 mg PO QHS PRN PRN PRN Reason: INSOMNIA Mirtazapine (Remeron) 7.5 mg PO DAILY@2200 [facility] Last Admin: 12/25/19 22:25 Dose: 7.5 mg Documented by: Ondansetron HCl (Zofran) 4 mg IV Q8H PRN PRN PRN Reason: NAUSEA/VOMITING Pantoprazole Sodium (Protonix) 40 mg PO DAILY [facility] Last Admin: 12/26/19 10:09 Dose: 40 mg Documented by: Pregabalin (Lyrica) 75 mg PO BID [facility] Last Admin: 12/26/19 10:09 Dose: 75 mg Documented by: Sodium Chloride () 10 - 40 ml IV UD PRN PRN Reason: SALINE FLUSH Last Admin: 12/25/19 11:04 Dose: 10 ml Documented by: Medical Necessity - Tobacco Use Smoking Status: Unknown if ever smoked Tobacco Use: Cigarettes Assessment/Plan All Active Problems Acute kidney injury (Acute) Hyperglycemia (Acute) Stroke-like symptoms (Acute) 1. Acute metabolic encephalopathy 2/2 DIONY, severe hyperglycemia - ct brain negative: age related changes of the brain. mild leukocytosis. no evidence of infection. UA neg, tylenol level neg. Still confused. mario/hctz held. 2. IDDM, uncontrolled - continue TID insulin, lantus, SSI. adjusted tid insulin. continue to titrate insulins as he is poorly controlled. 3. Recent TIA - statin, plavix, 4. GERD - ppi 5. HTN - off mario /hctz however bp controlled. 6. HLD - statin DVT ppx: lovenox DC planning: SNF This patient was seen by David Ferreira PA-C under the supervision of Dr. Minaya. <Mohsen Minaya F - Last Filed: 12/26/19 14:21> Vitals/I&O's: Vital Signs Temp Pulse Resp BP Pulse Ox 98.5 F 102 H 18 113/62 95 12/26/19 09:00 12/26/19 09:00 12/26/19 09:00 12/26/19 09:00 12/26/19 09:00 Oxygen Flow Rate (L/min) 2 Oxygen Delivery Method Room Air Weight: 138 lb 0.15 oz Body Mass Index (BMI) 22.2 Finger Stick Blood Glucose 383 Intake and Output for Last 24 Hours 12/24/19 12/25/19 12/27/19 23:59 23:59 00:59 Intake Total 1999 2328.33 / 2568.33 743.33 / 743.33 Output Total 0 / 0 875 / 1275 700 / 700 Balance 1999 1453.33 / 1293.33 43.33 / 43.33 Laboratory Results 12/25/19 16:10: POC Glucose 174 H 12/25/19 22:23: POC Glucose 218 H 12/26/19 01:58: POC Glucose 202 H 12/26/19 04:52: WBC 13.9 H, RBC 6.58 H, Hgb 17.1 H, Hct 55.9 H, MCV 85.0, MCH 26.0 L, MCHC 30.6 L, RDW Std Deviation 47.6 H, RDW Coeff of Vivian 17.0 H, Plt Count 247, MPV 11.5, Immature Gran % (Auto) 0.400, Neut % (Auto) 82.0 H, Lymph % (Auto) 11.1 L, [place] % (Auto) 6.1, Eos % (Auto) 0.1, Baso % (Auto) 0.3, Absolute Neuts (auto) 11.4 H, Absolute Lymphs (auto) 1.55, Nucleated RBC % 0 12/26/19 04:52: Sodium 141, Potassium 5.0, Chloride 108 H, Carbon Dioxide 25.0, Anion Gap 8, BUN 36 H, Creatinine 1.12, Estim Creat Clear Calc 51.24, Est GFR (MDRD) Af Amer 82, Est GFR (MDRD) Non-Af 68, BUN/Creatinine Ratio 32.1 H, Glucose 231 H, Calcium 8.4 L 12/26/19 07:53: POC Glucose 244 H 12/26/19 11:22: POC Glucose 310 H Current Medications Acetaminophen (Tylenol) 650 mg PO Q6H PRN PRN PRN Reason: Pain Score 1-10/Temp > 100.7 F Aspirin (Aspirin, Baby) 81 mg PO DAILY@0800 [facility] Last Admin: 12/26/19 08:07 Dose: 81 mg Documented by: Atorvastatin Calcium (Lipitor) 80 mg PO QHS [facility] Last Admin: 12/25/19 22:25 Dose: 80 mg Documented by: Clopidogrel Bisulfate (Plavix) 75 mg PO DAILY [facility] Last Admin: 12/26/19 10:09 Dose: 75 mg Documented by: Duloxetine HCl (Cymbalta) 60 mg PO DAILY [facility] Last Admin: 12/26/19 10:09 Dose: 60 mg Documented by: Enoxaparin Sodium (Lovenox) 30 mg SC DAILY [facility] Last Admin: 12/26/19 10:09 Dose: 30 mg Documented by: Glucagon () 1 mg IM .X1 PRN PRN Reason: Hypoglycemia Sodium Chloride () 1,000 mls @ 100 mls/hr IV .Q10H [facility] Last Admin: 12/26/19 05:57 Dose: 100 mls/hr Documented by: Dextrose (Dextrose 10%-Water) 250 mls @ 999 mls/hr IV .Q16M PRN; Protocol PRN Reason: HYPOGLYCEMIA Insulin Glargine (Lantus (Bk)) 15 units SC QHS [facility] Last Admin: 12/25/19 22:25 Dose: 15 u Documented by: Insulin Human Lispro (Humalog Kwikpen (Bk)) 0 unit SC ACHS & 3AM [facility]; Protocol Last Admin: 12/26/19 11:24 Dose: 6 u Documented by: Insulin Human Lispro (Humalog Kwikpen (Bk)) 10 unit SC TIDAC [facility] Melatonin (Melatonin) 3 mg PO QHS PRN PRN PRN Reason: INSOMNIA Mirtazapine (Remeron) 7.5 mg PO DAILY@2200 [facility] Last Admin: 12/25/19 22:25 Dose: 7.5 mg Documented by: Ondansetron HCl (Zofran) 4 mg IV Q8H PRN PRN PRN Reason: NAUSEA/VOMITING Pantoprazole Sodium (Protonix) 40 mg PO DAILY [facility] Last Admin: 12/26/19 10:09 Dose: 40 mg Documented by: Pregabalin (Lyrica) 75 mg PO BID [facility] Last Admin: 12/26/19 10:09 Dose: 75 mg Documented by: Sodium Chloride () 10 - 40 ml IV UD PRN PRN Reason: SALINE FLUSH Last Admin: 12/25/19 11:04 Dose: 10 ml Documented by: Addendum: Dr. Minaya I personally examined the patient and reviewed the chart. I agree with the above. 74-year-old male with a history of hypertension, hyperlipidemia, and GERD who was recently admitted at the end of November for a TIA and possible stroke presented from the group home with worsening slurred speech and confusion. NIH on admission in the ER was 0, he did not have any significant slurred speech on evaluation but he was just globally weak and confused from metabolic encephalopathy likely secondary to his DIONY and his hyperglycemia. His blood sugar has since recovered as has his kidney function with IV fluids, will continue and monitor his progress with PT/OT. The plan will be to discharge back to senior living facility. Can likely resume his MARIO inhibitor and hydrochlorothiazide tomorrow as his creatinine continues to improve. We will also continue for secondary prevention of stroke with his statin, aspirin, and Plavix. Inpatient E&M: [id number] [facility] Hosp L2
[2019-12-26] MEDS: Insulin Lispro 100 UNIT/ML INSULN.PEN 10 UNIT SC (17:11)
[2019-12-26 17:20] LABS: Bedside Glucose 205 mg/dL (70-110)
[2019-12-26] MEDS: Mirtazapine 15 MG Tablet 7.5 MG PO (20:53)
[2019-12-26] MEDS: Atorvastatin Calcium 80 MG Tablet PO (20:53)
--- NOTE | 2019-12-26 20:57 | NURSING ---
patient blood sugar 58, refused juice but eating a cake from dinner. will monitor. refused insulin
[2019-12-26 21:25] LABS: Bedside Glucose 58 mg/dL (70-110)
[2019-12-26 21:25] LABS: Bedside Glucose 139 mg/dL (70-110)
[2019-12-27] MEDS: 0.9% Normal Saline 1,000 ML 100 ML IV (01:49)
[2019-12-27 02:01] LABS: Bedside Glucose 203 mg/dL (70-110)
[2019-12-27 03:00] VITALS: BP 135/58; PULSE 91; RESP 16; TEMP 37.1; O2SAT 98
[2019-12-27 03:05] VITALS: PULSE 97
[2019-12-27 05:51] LABS: Absolute Lymphocyte Count 1.89 X10^3/uL (0.83-4.51); Absolute Neutrophil Count 7.1 X10^3/uL (2.0-7.7); Basophil# 0.03 X10^3/uL; Basophil% 0.3 % (0-1); Eosinophil# 0.07 X10^3/uL; Eosinophils% 0.7 % (0-5); Hematocrit 48.9 % (40-54); Hemoglobin 14.9 g/dL (13.0-16.5); Lymphocyte # 1.89 X10^3/ul (4.0); Lymphocyte % 19.2 % (19-41); Mean Corp Hgb Conc 30.5 g/dL (32-36); Mean Corpuscular Hgb 25.7 pg (27.0-32.0); Mean Corpuscular Volume 84.5 fL (80-94); Mean Platelet Vol. 11.5 fl (6.2-12.0); Monocyte# 0.72 X10^3/uL; Monocyte% 7.3 % (0-10); NRBC Flagged by Analyzer 0 % (0-5); Neutrophil # 7.11 X10^3/uL (2.7-7.7); Neutrophil % 72.1 % (47-70); Platelet Count 209 K/mm3 (150-450); RBC Distribution Width CV 15.7 % (11.6-14.6); RBC Distribution Width SD 47.8 fl (35.1-43.9); Red Blood Count 5.79 M/mm3 (4.6-6.2); White Blood Count 9.9 K/mm3 (4.4-11.0)
[2019-12-27 06:28] LABS: Anion Gap 5 (5-15); BUN 27 mg/dL (7-18); BUN/Creat Ratio 26.7 RATIO (10-20); Chloride 112 mmol/L (98-107); Creatinine, Serum 1.01 mg/dL (0.70-1.30); EST Glomerular Filtration Rate 77 mL/min (>60); Est Glom Filt Rate - Afr Amer 93 mL/min (>60); Estimated Creatinine Clearance 56.82 ml/min; Glucose 193 mg/dL (74-106); Potassium 4.3 mmol/L (3.5-5.1); Sodium Level 143 mmol/L (136-145)
[2019-12-27 07:00] VITALS: PULSE 92
[2019-12-27 07:40] VITALS: O2SAT 94
[2019-12-27 08:10] VITALS: BP 119/56; PULSE 89; RESP 18; TEMP 36.6; O2SAT 96
[2019-12-27] MEDS: Pregabalin 75 MG Capsule PO (08:18)
[2019-12-27] MEDS: Pantoprazole Sodium 40 MG Tablet PO (08:19)
[2019-12-27] MEDS: Clopidogrel Bisulfate 75 MG Tablet PO (08:19)
[2019-12-27] MEDS: Aspirin 81 MG TAB.CHEW PO (08:19)
[2019-12-27] MEDS: Insulin Lispro 100 UNIT/ML INSULN.PEN SC ×2 (08:19→11:19)
[2019-12-27] MEDS: DULoxetine Hcl 60 MG Capsule PO (08:19)
[2019-12-27] MEDS: Insulin Lispro 100 UNIT/ML INSULN.PEN 10 UNIT SC ×2 (08:20→11:20)
[2019-12-27] MEDS: Enoxaparin 30 MG/0.3 ML Syringe SC (08:20)
[2019-12-27 08:35] VITALS: BMI 22.2
[2019-12-27 08:35] LABS: Bedside Glucose 203 mg/dL (70-110)
--- NOTE | 2019-12-27 10:50 | CASEMGMT ---
Addendum entered by Lynda Dawn 12/27/19 12:06: Pt ready for discharge at this time. MIKE met with pt in room and explained to pt and he is agreeable. SW asked if son could be notified and pt denied. Asked if listed friend could be notified and pt agreed. Phone call to pt friend Blas Kaye and phone number not working. Phone call to [facility] and they state that they have called son who states he and pt have been estranged for many years and does not desire to be updated. Son said that pt may have local friends that son would try to contact but Nursing facility had not heard from anyone at this point. Transportation arranged with [facility] for strip picker at 12:30. Nursing made aware. Orders faxed to [facility] and phone call to [facility] to notify. JESSE Hernandez Original Note: Social Work Pt is a current resident at [facility]. SW met with pt and he plans to return there. Phone call to [facility] and they are able to accept back when ready. Clinical updates faxed. Plan: [facility], when medically ready JESSE Hernandez
--- NOTE | 2019-12-27 11:00 | TREXTCA.CO_ITS ---
- Diet 12/24/19 22:46 Diet: Regular Diet Food consistency:: Regular Liquid Consistency:: Regular/Thin - Routine Orders/Code Status Suppository Type: Dulcolax 10mg Suppository Frequency: Daily PRN Routine Lab Work: CBC - 5 days, BMP - 3 days Code Status: Full Code - Therapies Physical Therapy: Eval and Treat Occupational Therapy: Eval and Treat Speech Therapy: Eval and Treat - Problem/Diagnosis (1) Acute kidney injury Status: Acute Current Visit: Yes (2) Hyperglycemia Status: Acute Current Visit: Yes (3) GERD (gastroesophageal reflux disease) Status: Chronic Current Visit: No (4) HLD (hyperlipidemia) Status: Chronic Current Visit: No (5) HTN (hypertension) Status: Chronic Current Visit: No (6) TIA (transient ischemic attack) Status: Inactive Current Visit: No - Allergies/Procedures Done in Hospital Allergies/Adverse Reactions: Allergies No Known Allergies Allergy (Verified 12/24/19 17:32) Procedures: None - Type of Care/Length of Stay Estimated LOS: Convalescent Care Less Than 30 days Type of Care Needed: Skilled Rehab Potential: Fair Prognosis: Fair - Additional Orders/Day of Discharge Day of Discharge: 12/27/19 - Dietary and Speech Recommendations Dietitian Recommendations/Changes: Will order jeramie barclay/ medpass for incr eased nutrition if consumed - Follow Up Care Primary Care Physician: Eliud Montoya MD [Primary Care Provider] - Please Follow Up With: 1-2 weeks
--- NOTE | 2019-12-27 11:16 | PHA.DC.MR ---
Pharmacy Service has performed discharge medication reconciliation for this [facility] The patient's discharge medication list was reviewed for discrepancies and discrepancies were resolved. Home Medications Pregabalin [Lyrica] 75 mg PO BID 11/01/14 Lisinopril 20 mg PO DAILY 12/14/19 Aspirin [Aspirin, Baby] 81 mg PO DAILY@0800 tab.chew 12/17/19 Atorvastatin Calcium [Lipitor] 80 mg PO QHS tab 12/17/19 Clopidogrel Bisulfate [Plavix] 75 mg PO DAILY tab 12/17/19 Duloxetine Hcl [Cymbalta] 60 mg PO DAILY cap 12/17/19 Mirtazapine [Remeron] 7.5 mg PO DAILY 12/24/19 Pantoprazole Sodium [Protonix] 40 mg PO DAILY 12/24/19 Acetaminophen [Tylenol Tablet] 650 mg PO Q6H PRN PRN tab 12/27/19 Insulin Glargine [Lantus SoloStar Pen] 15 units SUBCUT QHS pen 12/27/19 Insulin Lispro [Humalog KwikPen] 10 unit SUBCUT TIDAC insuln.pen 12/27/19 Insulin Lispro [Humalog KwikPen] See Protocol SUBCUT ACHS & 3AM insuln.pen 12/27/19 Melatonin 3 mg PO QHS PRN PRN tab 12/27/19
[2019-12-27 11:31] LABS: Bedside Glucose 327 mg/dL (70-110)
--- NOTE | 2019-12-27 12:21 | NURSING ---
called report to Mala at [facility] at this time. Notified pt will be picked up shortly.
--- NOTE | 2019-12-27 13:55 | PCM.DC.SUM ---
<David Ferreira - Last Filed: 12/27/19 13:55> Discharge Date and Diagnosis Date of Admission: 12/25/19 Date of Discharge: 12/27/19 - Primary Discharge Diagnosis Active and Suspected Problems Acute kidney injury (Acute) Hyperglycemia (Acute) Acute metabolic encephalopathy secondary to DIONY, hyperglycemia IDDM with hyperglycemia Recent TIA Hypertension, hyperlipidemia - Secondary Discharge Diagnosis Chronic Problems Insulin dependent diabetes mellitus (Chronic) GERD (gastroesophageal reflux disease) (Chronic) HLD (hyperlipidemia) (Chronic) HTN (hypertension) (Chronic) Hospital Course and Treatment Imaging Results: CT/Brain/Head without Contrast IMPRESSION: Age-related changes of the brain. Operations: None Procedures: None Summary of Care Provided: Hospital Course: The patient is a 74 year old M with past medical history of recent TIA, debility for which he is in a custodial since his last admission, type 2 diabetes, hypertension, hyperlipidemia who presented the emergency room with slurry speech. In the ER his NIH was 0, and he was found to have severely elevated blood sugar and creatinine. He was felt to have acute metabolic encephalopathy secondary to DIONY and hyperglycemia. He was admitted to the PCU and placed on telemetry with IV fluids, holding his HCTZ and lisinopril, and adjusting his insulin with additional sliding scale added. The patient did very well with this approach with improvement in his speech, and improvement in his blood sugars and renal function. His only ongoing complaint was ongoing fatigue and weakness. He will require additional PT and OT and we recommended return to intermediate. Off of his blood pressure medications his blood pressure actually remained stable so I would not recommend restarting those at this time. He will need to continue sliding scale insulin, continue the increased dose of mealtime insulin which will be 10 at breakfast, 8 at lunch and dinner going forward, and 15 units of Lantus at night. He will continue to need his blood sugars checked regularly at the custodial and likely will need further adjustments to his insulin regimen. He should follow-up with his PCP in 1 to 2 weeks, he was discharged to intermediate in stable condition. Please check a BMP in 3 days. This patient was seen by David Ferreira PA-C under the supervision of Doctor Luevano. [] - Physical Exam Vitals/I&O's: Vital Signs Temp Pulse Resp BP Pulse Ox 97.9 F 89 18 119/56 L 96 12/27/19 08:10 12/27/19 08:10 12/27/19 08:10 12/27/19 08:10 12/27/19 08:10 Oxygen Flow Rate (L/min) 2 Oxygen Delivery Method Room Air Weight: 138 lb 0.15 oz Body Mass Index (BMI) 22.2 Finger Stick Blood Glucose 383 Intake and Output for Last 24 Hours 12/25/19 12/26/19 12/27/19 22:59 23:59 23:59 Intake Total 1979 Output Total Balance 1979 General: Alert, Oriented x3, Cooperative HEENT: Atraumatic, PERRLA, EOMI, Normocephalic Neck: Supple, No JVD, Negative Carotid Bruits Lungs: Clear to auscultation, Normal air movement Cardiovascular: Regular rate, No murmurs Abdomen: Bowel Sounds Present, Soft, Non Tender Extremities: No edema, Capillary Refill Less than 3 Seconds Skin: No rashes, No breakdown Musculoskeletal: No Tenderness to Palpation of Joints or Extremities Neurological: Cranial nerves II-XII grossly intact Psych/Mental Status: Normal Affect, Appropriate, Alert and oriented to time, place, person, mood and affect Laboratory Results 12/26/19 17:07: POC Glucose 205 H 12/26/19 20:45: POC Glucose 58 L 12/26/19 21:22: POC Glucose 139 H 12/27/19 01:52: POC Glucose 203 H 12/27/19 04:58: WBC 9.9, RBC 5.79, Hgb 14.9, Hct 48.9, MCV 84.5, MCH 25.7 L, MCHC 30.5 L, RDW Std Deviation 47.8 H, RDW Coeff of Vivian 15.7 H, Plt Count 209, MPV 11.5, Immature Gran % (Auto) 0.400, Neut % (Auto) 72.1 H, Lymph % (Auto) 19.2, Power % (Auto) 7.3, Eos % (Auto) 0.7, Baso % (Auto) 0.3, Absolute Neuts (auto) 7.1, Absolute Lymphs (auto) 1.89, Nucleated RBC % 0 12/27/19 04:58: Sodium 143, Potassium 4.3, Chloride 112 H, Carbon Dioxide 26.0, Anion Gap 5, BUN 27 H, Creatinine 1.01, Estim Creat Clear Calc 56.82, Est GFR (MDRD) Af Amer 93, Est GFR (MDRD) Non-Af 77, BUN/Creatinine Ratio 26.7 H, Glucose 193 H, Calcium 8.0 L 12/27/19 08:17: POC Glucose 203 H 12/27/19 11:18: POC Glucose 327 H Current Medications Acetaminophen (Tylenol) 650 mg PO Q6H PRN PRN PRN Reason: Pain Score 1-10/Temp > 100.7 F Aspirin (Aspirin, Baby) 81 mg PO DAILY@0800 [facility] Last Admin: 12/27/19 08:19 Dose: 81 mg Documented by: Atorvastatin Calcium (Lipitor) 80 mg PO QHS [facility] Last Admin: 12/26/19 20:53 Dose: 80 mg Documented by: Clopidogrel Bisulfate (Plavix) 75 mg PO DAILY [facility] Last Admin: 12/27/19 08:19 Dose: 75 mg Documented by: Duloxetine HCl (Cymbalta) 60 mg PO DAILY [facility] Last Admin: 12/27/19 08:19 Dose: 60 mg Documented by: Enoxaparin Sodium (Lovenox) 30 mg SC DAILY [facility] Last Admin: 12/27/19 08:20 Dose: 30 mg Documented by: Glucagon () 1 mg IM .X1 PRN PRN Reason: Hypoglycemia Sodium Chloride () 1,000 mls @ 100 mls/hr IV .Q10H [facility] Last Infusion: 12/27/19 12:03 Dose: Infused Documented by: Dextrose (Dextrose 10%-Water) 250 mls @ 999 mls/hr IV .Q16M PRN; Protocol PRN Reason: HYPOGLYCEMIA Insulin Glargine (Lantus (Bkc)) 15 units SC QHS [facility] Last Admin: 12/26/19 20:52 Dose: Not Given Documented by: Insulin Human Lispro (Humalog Kwikpen (Bkc)) 0 unit SC ACHS & 3AM [facility]; Protocol Last Admin: 12/27/19 11:19 Dose: 8 u Documented by: Insulin Human Lispro (Humalog Kwikpen (Bkc)) 10 unit SC TIDAC [facility] Last Admin: 12/27/19 11:20 Dose: 10 units Documented by: Melatonin (Melatonin) 3 mg PO QHS PRN PRN PRN Reason: INSOMNIA Mirtazapine (Remeron) 7.5 mg PO DAILY@2200 [facility] Last Admin: 12/26/19 20:53 Dose: 7.5 mg Documented by: Ondansetron HCl (Zofran) 4 mg IV Q8H PRN PRN PRN Reason: NAUSEA/VOMITING Pantoprazole Sodium (Protonix) 40 mg PO DAILY [facility] Last Admin: 12/27/19 08:19 Dose: 40 mg Documented by: Pregabalin (Lyrica) 75 mg PO BID [facility] Last Admin: 12/27/19 08:18 Dose: 75 mg Documented by: Sodium Chloride () 10 - 40 ml IV UD PRN PRN Reason: SALINE FLUSH Last Admin: 12/25/19 11:04 Dose: 10 ml Documented by: Discharge Diet: Low fat/ Low Cholesterol, 1800 Calorie Control Diet, 2000 mg Sodium Diet Discharge Activity: Return to Normal Activity Home Medications: Medications to take at Discharge Pregabalin [Lyrica] 75 mg PO BID 11/01/14 Lisinopril 20 mg PO DAILY 12/14/19 Aspirin [Aspirin, Baby] 81 mg PO DAILY@0800 tab.chew 12/17/19 Atorvastatin Calcium [Lipitor] 80 mg PO QHS tab 12/17/19 Clopidogrel Bisulfate [Plavix] 75 mg PO DAILY tab 12/17/19 Duloxetine Hcl [Cymbalta] 60 mg PO DAILY cap 12/17/19 Mirtazapine [Remeron] 7.5 mg PO DAILY 12/24/19 Pantoprazole Sodium [Protonix] 40 mg PO DAILY 12/24/19 Acetaminophen [Tylenol Tablet] 650 mg PO Q6H PRN PRN tab 12/27/19 Insulin Glargine [Lantus SoloStar Pen] 15 units SUBCUT QHS pen 12/27/19 Insulin Lispro [Humalog KwikPen] 10 unit SUBCUT TIDAC insuln.pen 12/27/19 Insulin Lispro [Humalog KwikPen] See Protocol SUBCUT ACHS & 3AM insuln.pen 12/27/19 Melatonin 3 mg PO QHS PRN PRN tab 12/27/19 Primary Care Physician: Eliud Montoya MD [Primary Care Provider] - Please follow up with your Primary Care Physician in: 1-2 weeks Disposition: Nursing Home facility Minutes spent on discharge:: 35 Medical Necessity - Tobacco Use Smoking Status: Unknown if ever smoked Tobacco Use: Cigarettes Meaningful Use Info Meaningful Use Diagnoses (Choose all that apply): None applicable <Lalo Luevano - Last Filed: 12/27/19 15:15> Discharge Date and Diagnosis - Secondary Discharge Diagnosis Chronic Problems Insulin dependent diabetes mellitus (Chronic) GERD (gastroesophageal reflux disease) (Chronic) HLD (hyperlipidemia) (Chronic) HTN (hypertension) (Chronic) Hospital Course and Treatment Summary of Care Provided: This patient was seen in conjunction with David Ferreira PA-C . I have independently interviewed and examined the patient and reviewed pertinent historical, laboratory, and other data. Please refer to David Ferreira PA-C note for details of this patient's presentation, findings, and recommendations. I have reviewed David Ferreira PA-C note and concur with documented findings. In brief, patient is a 74-year-old male with multiple comorbidities currently residing in extended care facility admitted with slurred speech. He was also found to have markedly elevated blood glucose levels as well as acute kidney injury. Patient admitted to a monitored bed where acute CVA was ruled out. Patient condition did stabilize and was discharged back to his custodial Hospital course: As documented above - Physical Exam Vitals/I&O's: Vital Signs Temp Pulse Resp BP Pulse Ox 97.9 F 89 18 119/56 L 96 12/27/19 08:10 12/27/19 08:10 12/27/19 08:10 12/27/19 08:10 12/27/19 08:10 Oxygen Flow Rate (L/min) 2 Oxygen Delivery Method Room Air Weight: 62.6 kg Body Mass Index (BMI) 22.2 Finger Stick Blood Glucose 383 Intake and Output for Last 24 Hours 12/25/19 12/26/19 12/27/19 22:59 23:59 23:59 Intake Total 1979 Output Total Balance 1979 Laboratory Results 12/26/19 17:07: POC Glucose 205 H 12/26/19 20:45: POC Glucose 58 L 12/26/19 21:22: POC Glucose 139 H 12/27/19 01:52: POC Glucose 203 H 12/27/19 04:58: WBC 9.9, RBC 5.79, Hgb 14.9, Hct 48.9, MCV 84.5, MCH 25.7 L, MCHC 30.5 L, RDW Std Deviation 47.8 H, RDW Coeff of Vivian 15.7 H, Plt Count 209, MPV 11.5, Immature Gran % (Auto) 0.400, Neut % (Auto) 72.1 H, Lymph % (Auto) 19.2, Power % (Auto) 7.3, Eos % (Auto) 0.7, Baso % (Auto) 0.3, Absolute Neuts (auto) 7.1, Absolute Lymphs (auto) 1.89, Nucleated RBC % 0 12/27/19 04:58: Sodium 143, Potassium 4.3, Chloride 112 H, Carbon Dioxide 26.0, Anion Gap 5, BUN 27 H, Creatinine 1.01, Estim Creat Clear Calc 56.82, Est GFR (MDRD) Af Amer 93, Est GFR (MDRD) Non-Af 77, BUN/Creatinine Ratio 26.7 H, Glucose 193 H, Calcium 8.0 L 12/27/19 08:17: POC Glucose 203 H 12/27/19 11:18: POC Glucose 327 H Inpatient E&M: 21140 Disch Hosp
[2019-12-28 10:08] LABS: Pathologist Review Reviewed
== END 2019-12-27 13:10 | disposition skilled nursing facility (03) | DRG 682 ==
LOC: ED 21:46 → PCU 22:47
PROVIDERS: Family Medicine; Physician Assistant; Admitting Provider Hospitalist; Emergency Provider Emergency Medicine; PCP Family Medicine; Visit Provider Internal Medicine
DX: N17.9 Acute kidney failure, unspecified (principal); G93.41 Metabolic encephalopathy; E11.65 Type 2 diabetes mellitus with hyperglycemia; K21.9 Gastro-esophageal reflux disease without esophagitis; E78.5 Hyperlipidemia, unspecified; I10 Essential (primary) hypertension; Z86.73 Personal history of transient ischemic attack (TIA), and cerebral infarction without residual deficits; Z79.4 Long term (current) use of insulin
CPT/HCPCS: 36415; 70450; 80048; 80053; 80061; 81001; 82009; 82962; 83930; 84484; 85025; 85610; 92526; 92610; 93005; 94762; 97162; 97166; 99285; J7030; A4216

== ENCOUNTER → 2020-06-13 | Outpatient (CLI) | payer MEDICARE, SELFPAY | END | disposition home or self-care (01) | PROVIDERS: PCP Family Medicine | DX: Z20.828 Contact with and (suspected) exposure to other viral communicable diseases (principal) | CPT/HCPCS: 87635; 94799; U0003 ==

== ENCOUNTER → 2020-06-21 10:35 | Outpatient (CLI) | payer MEDICARE, SELFPAY | PROVIDERS: PCP Family Medicine; Referring Provider Family Medicine; Visit Provider Family Medicine | DX: B34.9 Viral infection, unspecified (principal) | CPT/HCPCS: 87635; C9803; U0003 ==

== ENCOUNTER 2020-06-27 13:58 | Emergency (ER) | payer MEDICARE, MEDICAID, SELFPAY ==
[2020-06-27 13:59] VITALS: BP 139/80; PULSE 76; RESP 26; TEMP 36.9; O2SAT 94; BMI 25.8
--- NOTE | 2020-06-27 14:13 | EKG12_ITS ---
Test Reason : SOB Blood Pressure : / mmHG Vent. Rate : 068 BPM Atrial Rate : 068 BPM P-R Int : 124 ms QRS Dur : 086 ms QT Int : 404 ms P-R-T Axes : 080 066 080 degrees QTc Int : 429 ms Normal sinus rhythm Normal ECG Confirmed by LY MULLIGAN, NABOR ([id number]), material expeditor JHON GRIMES ([id number]) on 06/29/2020 9:38:15 AM Referred By: IAN Confirmed By:NABOR MODI MD
--- NOTE | 2020-06-27 14:16 | ED.VISSUMM ---
- ER Visit Summary Date of Service: 06/27/20 Chief Complaint: Shortness of breath History of Present Illness: The patient is a 75 M presenting with shortness of breath and cough. Patient states his symptoms started 4 weeks ago. He states this has been progressively worsening. He has shortness of breath with ambulation. He denies chest pain. Denies fever. He has had a productive cough. He has been tested for COVID twice in the past month with last being 5 days ago. Both tests were negative. He ran out of his albuterol inhaler. He is a previous smoker. Physical Examination: Vitals are stable. Patient is afebrile. Alert no acute distress. HEENT exam is unremarkable. Neck is supple. Lungs are wheezing bilaterally. Heart is regular rate and rhythm. Abdomen is soft nontender nondistended. Extremities are unremarkable. Skin is warm and dry. No focal neurologic deficit. Remainder of exam is unremarkable. Emergency Department Course and Treatment: Patient was given albuterol, Atrovent aerosols. EKG is sinus rhythm rate of 68. Chest x-ray shows hyperinflation. Findings suggestive of early right lower lobe infiltrate. CBC, chemistries unremarkable. Troponin is negative. Patient feels improved following breathing treatments. His pulse ox is 91% on room air with walking. He is offered admission and declines. He will return if he worsens. He will follow-up with his primary care physician. He is given prescription for prednisone, Levaquin. He was given albuterol inhaler. Advised return to the ED for worsening complaints. Disposition: Discharge home Impression: COPD exacerbation This note was generated with [employer] dictation software. It may contain incorrect words, spelling, and punctuation that were not noted in review of the chart prior to signing ED Disposition - Plan for ED Patient: Instructions: ED COPD Flare Prescriptions: Prednisone [Deltasone] 40 mg PO DAILY #10 tab Prescription Printed Levofloxacin [Levaquin] 750 mg PO DAILY #7 tab Prescription Printed Referrals: Eliud Montoya MD [Primary Care Provider] -
[2020-06-27] MEDS: Albuterol 2.5 MG/3 ML VIAL.NEB. INHALATION ×2 (14:25→14:26)
[2020-06-27] MEDS: Ipratropium/Albuterol Sulfate 3 ML AMPUL.NEB INHALATION (14:25)
[2020-06-27 14:32] VITALS: PULSE 67; RESP 18
[2020-06-27 14:37] LABS: Absolute Lymphocyte Count 2.24 X10^3/uL (0.83-4.51); Absolute Neutrophil Count 4.3 X10^3/uL (2.0-7.7); Basophil# 0.09 X10^3/uL; Eosinophil# 1.42 X10^3/uL; Eosinophils% 16.2 % (0-5); Hematocrit 40.5 % (40-54); Hemoglobin 11.6 g/dL (13.0-16.5); Lymphocyte # 2.24 X10^3/ul (4.0); Lymphocyte % 25.5 % (19-41); Mean Corp Hgb Conc 28.6 g/dL (32-36); Mean Corpuscular Volume 76.9 fL (80-94); Mean Platelet Vol. 10.4 fl (6.2-12.0); Monocyte# 0.72 X10^3/uL; Monocyte% 8.2 % (0-10); NRBC Flagged by Analyzer 0 % (0-5); Neutrophil # 4.29 X10^3/uL (2.7-7.7); Neutrophil % 48.9 % (47-70); Platelet Count 287 K/mm3 (150-450); RBC Distribution Width CV 17.5 % (11.6-14.6); RBC Distribution Width SD 48.2 fl (35.1-43.9); Red Blood Count 5.27 M/mm3 (4.6-6.2); White Blood Count 8.8 K/mm3 (4.4-11.0)
[2020-06-27 14:55] LABS: Anion Gap 3 (5-15); BUN 12 mg/dL (7-18); BUN/Creat Ratio 14.2 RATIO (10-20); Calcium,Total 8.8 mg/dL (8.5-10.1); Chloride 110 mmol/L (98-107); Creatinine, Serum 0.85 mg/dL (0.70-1.30); EST Glomerular Filtration Rate 94 mL/min (>60); Est Glom Filt Rate - Afr Amer 113 mL/min (>60); Estimated Creatinine Clearance 67.76 ml/min; Glucose 73 mg/dL (74-106); Potassium 4.2 mmol/L (3.5-5.1); Sodium Level 143 mmol/L (136-145)
--- NOTE | 2020-06-27 14:55 | RAD_ITS ---
STUDY: X-RAY CHEST REASON FOR EXAM: Male, 75 years old. Productive cough x 7 weeks TECHNIQUE: Single AP portable view of the chest. COMPARISON: Comparison is made with prior study dated 12/14/2019. FINDINGS: EKG electrodes are seen. There is evidence of hyperinflation. Since prior study, there is evidence of increased markings at the right lung base. Early right lower lobe infiltrate should be ruled out. There is no demonstrated pleural abnormality. Normal size heart. Normal mediastinum and braden. Normal visualized pulmonary arteries. There is atherosclerotic calcification of the aortic arch with tortuosity. Normal visualized thoracic spine. Normal visualized ribs, clavicles, and shoulders. There is no demonstrated abnormality of the visualized soft tissue structures of the upper abdomen. RAD/Chest 1 View (Portable) IMPRESSION: Hyperinflation. Findings suggestive of early right lower lobe infiltrate. Electronically Signed: Nazario Wray, at 15:11 EDT , Service support ,
[2020-06-27 15:00] VITALS: O2SAT 98
[2020-06-27 15:07] VITALS: O2SAT 95
--- NOTE | 2020-06-27 15:28 | ED.DEP ---
ED Disposition - Plan for ED Patient: Instructions: ED COPD Flare Prescriptions: Prednisone [Deltasone] 40 mg PO DAILY #10 tab Prescription Printed Levofloxacin [Levaquin] 750 mg PO DAILY #7 tab Prescription Printed Referrals: Eliud Montoya MD [Primary Care Provider] -
[2020-06-27] MEDS: predniSONE 20 MG Tablet 60 MG PO (16:07)
[2020-06-27 16:11] VITALS: PULSE 82; RESP 18; O2SAT 95
== END 2020-06-27 16:12 | disposition home or self-care (01) ==
PROVIDERS: Emergency Provider Emergency Medicine; PCP Family Medicine
DX: J44.1 Chronic obstructive pulmonary disease with (acute) exacerbation (principal); I10 Essential (primary) hypertension; E11.9 Type 2 diabetes mellitus without complications; E78.00 Pure hypercholesterolemia, unspecified; K21.9 Gastro-esophageal reflux disease without esophagitis; Z86.73 Personal history of transient ischemic attack (TIA), and cerebral infarction without residual deficits; Z79.4 Long term (current) use of insulin; Z79.82 Long term (current) use of aspirin; Z79.02 Long term (current) use of antithrombotics/antiplatelets; Z79.899 Other long term (current) drug therapy; Z87.891 Personal history of nicotine dependence
CPT/HCPCS: 71045; 80048; 84484; 85025; 93005; 94640; 99285

== ENCOUNTER 2021-01-21 09:35 | Inpatient (IN) | payer MEDICARE, MEDICAID, SELFPAY ==
[2021-01-21] VITALS (19 sets, daily range): BP systolic 102–149; BP diastolic 55–98; PULSE 100–115; RESP 12–33; TEMP 36.4–36.9; O2SAT 93–100; BMI 25.2; BMI 27.8; BMI 27.9
--- NOTE | 2021-01-21 09:38 | RAD_ITS ---
STUDY: X-RAY CHEST REASON FOR EXAM: Male, 76 years old. Shortness breath and cough TECHNIQUE: Single AP portable view of the chest. COMPARISON: 06/27/2020. FINDINGS: No focal infiltrate is seen. There is no demonstrated pleural abnormality. Normal size heart. Normal mediastinum and braden. Normal visualized pulmonary arteries. Sclerotic calcifications of the aortic arch. Normal visualized thoracic spine. Normal visualized ribs, clavicles, and shoulders. There is no demonstrated abnormality of the visualized soft tissue structures of the upper abdomen. RAD/Chest 1 View (Portable) IMPRESSION: No active pulmonary disease. Electronically Signed: Zion Da Silva MD at 11:02 EDT Tel , Service support ,
--- NOTE | 2021-01-21 09:38 | EKG12_ITS ---
Test Reason : SOB Blood Pressure : / mmHG Vent. Rate : 103 BPM Atrial Rate : 103 BPM P-R Int : 140 ms QRS Dur : 084 ms QT Int : 342 ms P-R-T Axes : 085 042 076 degrees QTc Int : 448 ms Sinus tachycardia Nonspecific ST and T wave abnormality Abnormal ECG Confirmed by LY MULLIGAN, NABOR ([id number]), metropolitan editor SHAHANA ESCALERA ([id number]) on 01/24/2021 7:50:57 AM Referred By: IAN Confirmed By:NABOR MODI MD
[2021-01-21 09:47] LABS: Absolute Lymphocyte Count 1.41 X10^3/uL (0.83-4.51); Absolute Neutrophil Count 6.9 X10^3/uL (2.0-7.7); Basophil# 0.07 X10^3/uL; Basophil% 0.7 % (0-1); Eosinophil# 1.14 X10^3/uL; Eosinophils% 11.2 % (0-5); Hematocrit 42.5 % (40-54); Hemoglobin 12.5 g/dL (13.0-16.5); Lymphocyte # 1.41 X10^3/ul (4.0); Lymphocyte % 13.9 % (19-41); Mean Corp Hgb Conc 29.4 g/dL (32-36); Mean Corpuscular Hgb 23.8 pg (27.0-32.0); Mean Platelet Vol. 11.9 fl (6.2-12.0); Monocyte# 0.59 X10^3/uL; Monocyte% 5.8 % (0-10); NRBC Flagged by Analyzer 0 % (0-5); Neutrophil # 6.94 X10^3/uL (2.7-7.7); Neutrophil % 68.1 % (47-70); Platelet Count 195 K/mm3 (150-450); RBC Distribution Width CV 18.4 % (11.6-14.6); Red Blood Count 5.25 M/mm3 (4.6-6.2); White Blood Count 10.2 K/mm3 (4.4-11.0)
[2021-01-21] MEDS: Ipratropium/Albuterol Sulfate 3 ML AMPUL.NEB INHALATION ×4 (10:02→22:48)
[2021-01-21] MEDS: Albuterol 2.5 MG/3 ML VIAL.NEB. INHALATION ×3 (10:02→10:41)
[2021-01-21 10:03] LABS: Anion Gap 6 (5-15); BUN 20 mg/dL (7-18); BUN/Creat Ratio 16.4 RATIO (10-20); Calcium,Total 9.2 mg/dL (8.5-10.1); Chloride 105 mmol/L (98-107); Creatinine, Serum 1.22 mg/dL (0.70-1.30); EST Glomerular Filtration Rate 61 mL/min (>60); Est Glom Filt Rate - Afr Amer 74 mL/min (>60); Estimated Creatinine Clearance 53.19 ml/min; Glucose 371 mg/dL (74-106); Potassium 4.9 mmol/L (3.5-5.1); Sodium Level 138 mmol/L (136-145)
--- NOTE | 2021-01-21 10:25 | ED.DCSUM_ITS ---
- ER Visit Summary Date of Service: 01/21/21 Chief Complaint: Shortness of breath History of Present Illness: The patient is a 76 M presenting with shortness of breath. Patient states this started approximately 1 week ago but has been progressively worsening. He has had a productive cough. He denies chest pain. He has shortness of breath that is worsened with exertion. He has been using albuterol at home. He went outside around 4 AM because he felt the fresh air may help. He was unable to get back inside due to his shortness of breath with exertion and was outside for approximately 2 hours. When he was able to get inside he called 911. He was given DuoNeb and Solu-Medrol per EMS. He is a p revious smoker. He denies PE/DVT risk factors. He has received 2 doses of Covid vaccine with the second dose being approximately 10 days ago. Physical Examination: Vitals are stable. Blood pressure 102/80, temperature 97.9, heart rate 111, respiratory rate 28. Pulse ox 100% on nonrebreather mask. HEENT exam is unremarkable. Neck is supple. Lungs are wheezing bilaterally. Heart is regular tachycardic Abdomen is soft nontender nondistended. Extremities are unremarkable. No edema Skin is warm and dry. No focal neurologic deficit. Remainder of exam is unremarkable. Emergency Department Course and Treatment: EKG is sinus tachycardia rate of 103 with no acute ischemic changes. CBC, chemistries unremarkable other than gluco se 371, BUN 20. Troponin 0.183. Covid negative. Patient was given albuterol, Atrovent aerosols. He continues to have tachypnea and wheezing. He was started on BiPAP with improvement. Chest x-ray read by myself and radiology shows no active pulmonary disease. Patient is feeling improved on BiPAP. Discussed with hospitalist for admission. Disposition: Admission Impression: COPD exacerbation This note was generated with [employer] dictation software. It may contain incorrect words, spelling, and punctuation that were not noted in review of the chart prior to signing ED Disposition - Plan for ED Patient: Referrals: Eliud Montoya MD [Primary Care Provider] -
[2021-01-21 10:31] LABS: Blood Gas Specimen Type VEN; O2 Delivery Device Cannula; VBG BASE EXCESS 0 mmol/L (-1.0-3.5); VBG Bicarbonate 28 mmol/L (22-26); VBG PO2 20 mmHg (25-40); VBG SO2 24 % (50-70); VBG TCO2 30 mmol/L (23-33); VBG pCO2 62.5 mmHg (41-51); VBG pH 7.25 (7.32-7.42)
--- NOTE | 2021-01-21 10:42 | ED.RN ---
pt had 200c clear yellow urine out with assist of urinal. cards, keys, and phone in zapien bag clothing. Pt aware of the placement and verbalized understanding with personal
--- NOTE | 2021-01-21 11:41 | HP.PCM_ITS ---
Problem List (1) Acute respiratory failure with hypoxia Status: Acute (2) COPD exacerbation Status: Acute (3) Hyperglycemia Status: Acute (4) Stroke-like symptoms Status: Acute (5) Insulin dependent diabetes mellitus Status: Chronic (6) GERD (gastroesophageal reflux disease) Status: Chronic (7) HLD (hyperlipidemia) Status: Chronic (8) HTN (hypertension) Status: Chronic (9) CVA (cerebral vascular accident) Status: Inactive (10) TIA (transient ischemic attack) Status: Inactive (11) Elevated troponin Status: Acute History of Present Illness Date of Admission: 01/21/21 Chief Complaint: shortness of breath The patient is a 76 year old M diagnosed with COPD ~ 8 months ago presents with w a 2 week history of progressively worsening SOB. He has been coughing with productive phlegm. He told the ED physician that he went out to get some fresh air because of his SOB, but worsened an barely made it back in and felt like he might . EMS was contacted and patient brought to ED for evaluation. He was placed on a NRB in the field and was 91%, subsequently put on BiPAP and received aerosols and he is feeling much better. FiO2 on BiPAP weaned down to 25%. He denies having felt like this before. [] Past Medical History Past Medical History (Chronic Problems): Chronic Problems Insulin dependent diabetes mellitus (Chronic) GERD (gastroesophageal reflux disease) (Chronic) HLD (hyperlipidemia) (Chronic) HTN (hypertension) (Chronic) Medical History: Medical History (Last Updated 01/21/21 @ 11:[address] Jeff Chavira, DO) DM2 (diabetes mellitus, type 2) E11.9 GERD (gastroesophageal reflux disease) K21.9 Hyperlipidemia E78.5 COPD (chronic obstructive pulmonary disease) J44.9 HTN (hypertension) I10 Allergies No Known Allergies Allergy (Verified 06/27/20 13:59) Home Medications: Ambulatory Orders Medication Instructions Recorded Pregabalin [Lyrica] 75 mg PO BID 11/01/14 Lisinopril 20 mg PO DAILY 12/14/19 Aspirin [Aspirin, Baby] 81 mg PO DAILY@0800 tab.chew 12/17/19 Atorvastatin Calcium [Lipitor] 80 mg PO QHS tab 12/17/19 Clopidogrel Bisulfate [Plavix] 75 mg PO DAILY tab 12/17/19 Duloxetine Hcl [Cymbalta] 60 mg PO DAILY cap 12/17/19 Mirtazapine [Remeron] 7.5 mg PO DAILY 12/24/19 Pantoprazole Sodium [Protonix] 40 mg PO DAILY 12/24/19 Acetaminophen [Tylenol Tablet] 650 mg PO Q6H PRN PRN tab 12/27/19 Insulin Glargine [Lantus SoloStar 15 units SUBCUT QHS pen 12/27/19 Pen] Insulin Lispro [Humalog KwikPen] 10 unit SUBCUT TIDAC insuln.pen 12/27/19 Insulin Lispro [Humalog KwikPen] See Protocol SUBCUT ACHS & 3AM 12/27/19 insuln.pen Melatonin 3 mg PO QHS PRN PRN tab 12/27/19 Levofloxacin [Levaquin] 750 mg PO DAILY #7 tab 06/27/20 Prednisone [Deltasone] 40 mg PO DAILY #10 tab 06/27/20 Baclofen 01/21/21 Surgical History: - - Patient is unable to provide information. However there is a healed wound on his abdomen that appears surgical. Psychiatric History: No pertinent psych hx Smoking Status: Former smoker Tobacco Use: Non-smoker - quit 5 years ago Alcohol: None Drugs: None - *Family History Maternal History Items: - - denies stroke, CAD. denies COPD Paternal History Items: - - denies stroke, CAD Review of Systems Constitutional: Reports: Malaise. Denies: Anorexia, Chills, Fever, Night Sweats Eyes: Denies: Blurred vision, Double vision HEENT: Denies: Head Aches, Sinus Congestion, Sinus Drainage Cardiovascular: Denies: Chest Pain, Palpitations Respiratory: Reports: Cough, Shortness of Breath, Sputum production Gastrointestinal: Denies: Abdominal Pain, Nausea, Vomiting Genitourinary: Denies: Dysuria Musculoskeletal: Denies: Joint Pain, Joint Tenderness Hematologic/ Lymphatic: Denies: Easy Bruising, Easy Bleeding, Hx of blood clot Comment: All review of systems were negative except as mentioned above in the history of present illness and the other review of systems. VTE Information - Inpt Only VTE Present on Admission: No VTE Mechan Device Prophylaxis: None VTE Pharm Prophylaxis ordered?: Yes - Physical Exam Vitals/I&O's: Vital Signs Temp Pulse Resp BP Pulse Ox 36.9 C 104 H 18 138/66 H 96 01/21/21 11:28 01/21/21 11:28 01/21/21 11:28 01/21/21 11:28 01/21/21 11:28 Oxygen Flow Rate (L/min) 1 Oxygen Delivery Method Bi-pap Weight: 79.7 kg Body Mass Index (BMI) 25.2 Finger Stick Blood Glucose 383 General: Alert, Cooperative, No apparent distress, - - on BiPAP HEENT: Atraumatic, Normocephalic Neck: No Nodes, Thyroid Normal Size and Texture Lungs: Diminished, Wheezes Cardiovascular: Regular rate, Regular Rhythm, Normal S1, Normal S2, No murmurs Abdomen: Bowel Sounds Present, Soft, Non Tender, Non-Distended, No Hepato- splenomegaly, Passing Flatus Extremities: No edema, No Calf Tenderness Skin: No rashes, No breakdown Musculoskeletal: No Tenderness to Palpation of Joints or Extremities, No Muscle Wasting Neurological: Neuro grossly intact, - - no clonus. DTRs intact in LE Psych/Mental Status: Normal Affect, Appropriate Microbiology Past 72 Hours 01/21/21 09:45 Mucosa - Nose SARS-CoV-2 Antigen (Rapid) - Final Laboratory Results 01/21/21 09:18: WBC 10.2, RBC 5.25, Hgb 12.5 L, Hct 42.5, MCV 81.0, MCH 23.8 L, MCHC 29.4 L, RDW Std Deviation 52.0 H, RDW Coeff of Vivian 18.4 H, Plt Count 195, MPV 11.9, Immature Gran % (Auto) 0.300, Neut % (Auto) 68.1, Lymph % (Auto) 13.9 L, [place] % (Auto) 5.8, Eos % (Auto) 11.2 H, Baso % (Auto) 0.7, Absolute Neuts (auto) 6.9, Absolute Lymphs (auto) 1.41, Nucleated RBC % 0 01/21/21 09:18: Sodium 138, Potassium 4.9, Chloride 105, Carbon Dioxide 27.0, Anion Gap 6, BUN 20 H, Creatinine 1.22, Estim Creat Clear Calc 53.19, Est GFR (MDRD) Af Amer 74, Est GFR (MDRD) Non-Af 61, BUN/Creatinine Ratio 16.4, Glucose 371 H, Calcium 9.2, Troponin I 0.183 H 01/21/21 10:24: Specimen Type CHRISTOPHER, VBG pH 7.25 L, VBG pO2 20 L, VBG HCO3 28 H, VBG Total CO2 30, VBG O2 Sat (Calc) 24 L, VBG Base Excess 0, POC Mix VBG pCO2 Pt Tmp 62.5 H, O2 Delivery Device Cannula, Liter Flow 1.0 EKG reviewed and showed normal sinus rhythm with no acute changes. Chest x-ray personally reviewed and showed no acute process. Assessment/Plan All Active Problems Hyperglycemia (Acute) Stroke-like symptoms (Acute) Acute respiratory failure with hypoxia (Acute) COPD exacerbation (Acute) Elevated troponin (Acute) 1. Acute hypoxic respiratory failure Secondary to acute exacerbation of COPD COVID-19 rapid test was negative Plan * Continue with BiPAP and wean as tolerated. Thus far patient has done very well during his brief stay thus far in the emergency room and is currently on 25% FiO2 on the BiPAP. * Check respiratory viral panel 2. Acute exacerbation of COPD Ongoing Plan * Continue with bronchodilators and add methylprednisolone. Add azithromycin. * After discharge, patient to follow-up with his [facility] organizational research consultant. 3. Elevated troponin Troponin was 0.183 Suspect demand as there is no evidence of ischemia on his EKG nor does he have chest pain symptoms Plan * Continue to cycle troponins * If troponins trend up then would consult cardiology consider full dose anticoagulation but if no additional issues would observe * Check an echocardiogram 4. Diabetes mellitus type II Anticipate elevated blood sugars while on methylprednisolone Plan: Continue with his insulin regimen as at home and make adjustments based on blood sugars arthur in the hospital. Patient may require increased insulin requirements while he is on steroids. 5. History of stroke Continue with aspirin and clopidogrel 6. VTE prophylaxis with enoxaparin 7. Advanced care planning: Discussed with the patient. Patient wishes to be full CODE STATUS. 8. Disposition: Anticipate hospitalization of 48 to 72 hours. Inpatient E&M: 70241 Init Hosp L3
--- NOTE | 2021-01-21 12:13 | EKG12_ITS ---
Test Reason : Blood Pressure : / mmHG Vent. Rate : 095 BPM Atrial Rate : 095 BPM P-R Int : 136 ms QRS Dur : 086 ms QT Int : 366 ms P-R-T Axes : 085 053 092 degrees QTc Int : 459 ms Normal sinus rhythm Nonspecific T wave abnormality Abnormal ECG When compared with ECG of 21-JAN-2021 09:52, MANUAL COMPARISON REQUIRED, DATA IS UNCONFIRMED Confirmed by LY MULLIGAN, NABOR ([id number]), editor in chief newspaper JHON GRIMES ([id number]) on 01/26/2021 3:11:18 PM Referred By: TALYA Confirmed By:NABOR MODI MD
[2021-01-21 13:46] LABS: Bedside Glucose 376 mg/dL (70-110)
[2021-01-21] MEDS: Azithromycin 250 MG Tablet 500 MG PO (13:46)
[2021-01-21] MEDS: Insulin Lispro 100 UNIT/ML INSULN.PEN 8 UNIT SC ×2 (13:47→17:15)
[2021-01-21] MEDS: Insulin Lispro 100 UNIT/ML INSULN.PEN SC ×3 (13:47→21:15)
[2021-01-21] MEDS: 0.9% Saline Lock 10 ML Syringe IV ×2 (13:51→21:10)
[2021-01-21] MEDS: Enoxaparin 80 MG/0.8 ML Syringe SC (17:20)
[2021-01-21 17:21] LABS: Bedside Glucose 385 mg/dL (70-110)
--- NOTE | 2021-01-21 17:32 | NURSING ---
Pt angry at all caregivers, stating he wishes the doctor would transfer him to [place] or [place] so he could be taken care of by black nurses. Pt states everyone is racist in this hospital and he can't trust them.
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
--- NOTE | 2021-01-21 20:24 | ECHOD_ITS ---
Reason For Study: s/p CA Procedure This was a 2D Doppler, Color Flow transthoracic echocardiogram. Exam performed portable in patient room. Left Ventricle Normal LV size. Moderate eccentric left ventricular hypertrophy. Left ventricular systolic function is normal. The estimated ejection fraction is 65 %. Stage 1 diastolic dysfunction. No regional wall motion abnormalities noted. Right Ventricle Normal RV size. Normal systolic function. Atria Normal left atrium. Normal right atrium. Mitral Valve Normal mitral valve. Tricuspid Valve Normal tricuspid valve. Mild tricuspid valve insufficiency. Pulmonic Valve Normal pulmonic valve. Great Vessels Normal aortic root. The pulmonary artery is normal size. Normal inferior vena cava. Pericardium/Pleural No pericardial effusion. MMode/2D Measurements & Calculations LVIDd: 4.4 cm IVSd: 1.3 cm Ao root diam: 2.7 cm LVIDs: 2.5 cm LVPWd: 1.2 cm FS: 43.5 % LAV(MOD-bp): 23.4 ml LVAd ap4: 21.2 cm2 SV(MOD-sp4): 33.0 ml LAV(MOD-bp) Indexed: 12.5 ml/m2 EDV(MOD-sp4): 53.4 ml LAV(MOD-sp2): 27.3 ml EDV(sp4-el): 53.1 ml LAV(MOD-sp4): 20.1 ml LVAs ap4: 10.9 cm2 ESV(MOD-sp4): 20.4 ml ESV(sp4-el): 17.5 ml EF(MOD-sp4): 61.8 % EF(sp4-el): 67.0 % SV(sp4-el): 35.5 ml LA dimension(2D): 2.7 cm LA A4 area: 10.5 cm2 RA A4 area: 11.1 cm2 Doppler Measurements & Calculations MV E max salvador: 67.6 cm/sec Lat Peak E' [place]: 8.6 cm/sec Med Peak E' [place]: 5.8 cm/sec MV A max salvador: 117.6 cm/sec E/E' lat: 7.8 E/E' med: 11.6 MV E/A: 0.57 Ao V2 max: 161.1 cm/sec LV V1 max: 125.2 cm/sec PA V2 max: 80.0 cm/sec Ao max P.4 mmHg LV V1 max P.3 mmHg Ao V2 mean: 100.0 cm/sec Ao mean P.6 mmHg Ao V2 VTI: 27.1 cm ECHO/Echo Complete Interpretation Summary Normal LV size. Moderate eccentric left ventricular hypertrophy. Left ventricular systolic function is normal. The estimated ejection fraction is 65 %. Stage 1 diastolic dysfunction. Ordering Physician: Jeff Mon Referring Physician: Eliud Montoya Performed By: Anne Marie Nick, ALOK, RVT
[2021-01-21] MEDS: guaiFENesin 600 MG Tablet PO (21:04)
[2021-01-21] MEDS: Pregabalin 75 MG Capsule PO (21:05)
[2021-01-21] MEDS: Atorvastatin Calcium 80 MG Tablet PO (21:05)
[2021-01-21 21:50] LABS: Bedside Glucose 338 mg/dL (70-110)
[2021-01-22] VITALS (10 sets, daily range): BP systolic 129–171; BP diastolic 58–99; PULSE 95–114; RESP 12–24; TEMP 36.3–36.7; O2SAT 77–97
[2021-01-22] MEDS: Ipratropium/Albuterol Sulfate 3 ML AMPUL.NEB INHALATION ×3 (03:20→11:02)
[2021-01-22] MEDS: 0.9% Saline Lock 10 ML Syringe IV (05:10)
[2021-01-22] MEDS: Enoxaparin 80 MG/0.8 ML Syringe SC (05:12)
--- NOTE | 2021-01-22 05:15 | CPS ---
pt tried to wear bipap for the night but was unable to at this time. 2315 01/21/21
[2021-01-22 09:26] LABS: Bedside Glucose 330 mg/dL (70-110)
--- NOTE | 2021-01-22 10:48 | NURSING ---
This nurse into to pt room to give meds, pt attempting to make phone call, states I am trying to call, I don't want my meds now Assistance given to make phone call.
--- NOTE | 2021-01-22 11:30 | CASEMGMT ---
RN CM assessment: Face to Face with patient for initial transition planning/care coordination assessment. RN CM introduced self and role at [facility], pt voices understanding. Pt is sitting on side of bed fully dressed in no distress. Pt is A/Ox4 and answers questions hesitantly but appropriately at this time. Care providers, pharmacy, and demographics verified. Toward the end of assessment when this RN CM asked about LW/HPOA, pt starts yelling at this RN CM about his HPOA/java development manager, Will Rodriguez, not being allowed into visit pt this am. This RN CM tried to explain visitor/visitation guidelines and tried to ask who pt who he set up for visitation but pt just continues to yell at this RN CM about 'you people treating me like child and you should have just gotten the doctor to give the ok to let him up.' No matter what was said, pt continued to yell at this RN CM and Richard RN, who was also at bedside. Pt did qualify for home oxygen 2L continuous and this RN CM tried to re-direct pt regarding getting oxygen set up, [facility] and pt agrees to [facility]. Referral faxed to [facility]. Presentation: Increasing SOB over last several days. productive cough, difficulty speaking thru coughing spell Admitting dx: COPD exac PCP: Lindsay Specialists: A lot per pt but cannot remember names Preferred Pharmacy: [facility] Insurance: [employer] Prescription Benefit: [employer] Living Will/HPOA: Pt states has LW/HPOA and is aware that they are not on file at [facility]. Pt states, Will Rodriguez, is HPOA and also his trial attorney. LNOK: Jasmina Jerez, son; Blas Jaquezson, friend Living Arrangements: [place] and states no concerns at home. Pt states is independent with ADL's but states has been having difficulty getting around d/t back pain/SOB. Transportation: Pt states normally drives self but states his car 'is at the garage getting work done.' Pt has [employer] now per registration but does not have cards with him. Pt aware that [employer] can provide transportation, if needed. DME/HHC: Pt states no current DME and declines [facility] script as he states he has 'tried that and didn't like it.' See above note regarding home oxygen qualification. Pt states no hx of HHC but has been to [facility] in the past. Pt states no concerns with going home at time of discharge. Pt is retired. Pt states does not smoke cigarettes or drink ETOH. Pt declines need for any further resources and states no further concerns/needs. CM to follow for any further discharge planning/needs. Advised pt to ask for CM if any further questions/concerns/needs arise, voices understanding. Pt Goal: Home Plan: Home [place] RN CM
--- NOTE | 2021-01-22 12:13 | EKG12_ITS ---
Test Reason : AM EKG Blood Pressure : / mmHG Vent. Rate : 113 BPM Atrial Rate : 113 BPM P-R Int : 148 ms QRS Dur : 090 ms QT Int : 328 ms P-R-T Axes : 078 066 100 degrees QTc Int : 449 ms Sinus tachycardia Nonspecific T wave abnormality Abnormal ECG When compared with ECG of 21-JAN-2021 13:41, MANUAL COMPARISON REQUIRED, DATA IS UNCONFIRMED Confirmed by LY MULLIGAN, NABOR ([id number]), editor greeting card JHON GRIMES ([id number]) on 01/26/2021 3:07:46 PM Referred By: TALYA Confirmed By:NABOR MODI MD
[2021-01-22] MEDS: Azithromycin 250 MG Tablet 500 MG PO (12:18)
[2021-01-22] MEDS: Lisinopril 20 MG Tablet PO (12:18)
[2021-01-22] MEDS: Clopidogrel Bisulfate 75 MG Tablet PO (12:18)
[2021-01-22] MEDS: guaiFENesin 600 MG Tablet PO (12:18)
[2021-01-22] MEDS: Pregabalin 75 MG Capsule PO (12:18)
[2021-01-22] MEDS: Mirtazapine 15 MG Tablet 7.5 MG PO (12:18)
[2021-01-22] MEDS: Pantoprazole Sodium 40 MG Tablet PO (12:18)
[2021-01-22] MEDS: DULoxetine Hcl 60 MG Capsule PO (12:18)
[2021-01-22] MEDS: Aspirin 81 MG TAB.CHEW PO (12:20)
[2021-01-22] MEDS: Insulin Lispro 100 UNIT/ML INSULN.PEN SC (12:23)
[2021-01-22] MEDS: Insulin Lispro 100 UNIT/ML INSULN.PEN 8 UNIT SC (12:23)
[2021-01-22 12:31] LABS: Bedside Glucose 380 mg/dL (70-110)
--- NOTE | 2021-01-22 13:12 | DCINST_ITS ---
- Discharge Diagnoses Current Active Problems: Current Active and Chronic Problems (Last Updated 01/21/21 @ 11:[address] Jeff Chavira, DO) Insulin dependent diabetes mellitus (Chronic) GERD (gastroesophageal reflux disease) (Chronic) HLD (hyperlipidemia) (Chronic) HTN (hypertension) (Chronic) Hyperglycemia (Acute) Stroke-like symptoms (Acute) Acute respiratory failure with hypoxia (Acute) COPD exacerbation (Acute) Elevated troponin (Acute) Elevated troponin (Acute) You will use the following diet at home:: No restrictions Your food should be the consistency of: Regular Your liquids should be the consistency of: Regular/Thin Discharge Activity: Return to Normal Activity Allergies/Adverse Reactions: Allergies No Known Allergies Allergy (Verified 06/27/20 13:59) Medications to take at Discharge Pregabalin [Lyrica] 75 mg PO BID 11/01/14 Lisinopril 20 mg PO DAILY 12/14/19 Aspirin [Aspirin, Baby] 81 mg PO DAILY@0800 tab.chew 12/17/19 Atorvastatin Calcium [Lipitor] 80 mg PO QHS tab 12/17/19 Clopidogrel Bisulfate [Plavix] 75 mg PO DAILY tab 12/17/19 Duloxetine Hcl [Cymbalta] 60 mg PO DAILY cap 12/17/19 Mirtazapine [Remeron] 7.5 mg PO DAILY 12/24/19 Pantoprazole Sodium [Protonix] 40 mg PO DAILY 12/24/19 Acetaminophen [Tylenol Tablet] 650 mg PO Q6H PRN PRN tab 12/27/19 Melatonin 3 mg PO QHS PRN PRN tab 12/27/19 Baclofen 10 mg PO TID PRN 01/21/21 Insulin Glargine [Lantus SoloStar Pen] 28 units SC QHS 01/21/21 Insulin Lispro [Humalog KwikPen] See Protocol SQ ACHS 01/21/21 Fluticasone/Umeclidin/Vilanter [Trelegy Ellipta 100-62.5-25] 1 each IH DAILY #30 blst.w.dev 01/22/21 predniSONE tablet See Taper PO DAILY #15 tab 01/22/21 The following prescriptions were given: predniSONE tablet See Taper PO DAILY #15 tab Transmission Status: Pending to [id number] Fluticasone/Umeclidin/Vilanter [Trelegy Ellipta 100-62.5-25] 1 each IH DAILY #30 blst.w.dev Transmission Status: Pending to [id number] Primary Care Physician: Eliud Montoya MD [Primary Care Provider] - Please follow up with your Primary Care Physician in: Within the next 2 weeks Test Results: Test results from this visit will be discussed in further detail at your follow- up appointment, if applicable. Proposed Discharge Date: 01/22/21
--- NOTE | 2021-01-22 13:16 | PCM.DC.SUM ---
Discharge Date and Diagnosis - Problem List Patient Problems: Active and Suspected Problems (Last Updated 01/21/21 @ 11:[address] Jeff Chavira DO) Hyperglycemia (Acute) Stroke-like symptoms (Acute) Acute respiratory failure with hypoxia (Acute) COPD exacerbation (Acute) Elevated troponin (Acute) Elevated troponin (Acute) Date of Admission: 01/21/21 Date of Discharge: 01/22/21 - Primary Discharge Diagnosis Acute Problems: Active Problems (Last Updated 01/21/21 @ 11:[address] Jeff Chavira DO) Hyperglycemia (Acute) Stroke-like symptoms (Acute) Acute respiratory failure with hypoxia (Acute) COPD exacerbation (Acute) Elevated troponin (Acute) Elevated troponin (Acute) - Secondary Discharge Diagnosis Chronic Problems: Chronic Problems (Last Updated 01/21/21 @ 11:[address] Jeff Chavira DO) Insulin dependent diabetes mellitus (Chronic) GERD (gastroesophageal reflux disease) (Chronic) HLD (hyperlipidemia) (Chronic) HTN (hypertension) (Chronic) Hospital Course and Treatment Operations: None Summary of Care Provided: Patient is a 76-year-old male who presented to the ED with a 2-week history of progressively worsening shortness of breath. Patient was admitted for acute hypoxic respiratory failure secondary to COPD exacerbation, hyperglycemia, elevated troponins, strokelike symptoms. While rounding today patient was adamant about being transferred to [facility] for management of his COPD exacerbation. Hospital medicine team explained to patient that transfer through hospital unlikely given his current diagnoses. Patient elected to be discharged home with oxygen and stated that he would prefer to try to self admit to another facility at discharge. Patient qualifies for home oxygen as his oxygen saturation was 82% on room air while ambulating. Patient qualifies for 2 L of oxygen while at home. 1) Acute hypoxic respiratory failure secondary to acute COPD exacerbation Assessment - Patient would like to try to self admit to another hospital at discharge - CBC and BMP unremarkable - Chest x-ray demonstrates no acute cardiopulmonary process - Ambulatory pulse ox 77% on RA Plan - Initiate Trelegy once per day on discharge - Initiate prednisone taper x12 days at discharge - Discharge home on 2 L of oxygen 2) Elevated Troponin Assessment - Elevated troponins throughout cycle - ECHO: Normal LV size/function, estimated EF is 65%, stage I diastolic dysfunction - EKG; no evidence of ischemia Plan - Cleared to be managed as an outpatient per cardiology 3) DM2 Assessment - POC glucose 380 - Insulin requirement may increase while on steroids Plan - Continue with home insulin regimen -With primary care provider within the next 2 weeks 4) Stroke history Assessment - See results of echocardiogram above Plan - Continue aspirin and Plavix on discharge Patient seen by Will Vu PA-C, under the supervision of Dr. Dumnot. Patient Problems: Active and Suspected Problems (Last Updated 01/21/21 @ 11:[address] Jeff Chavira, DO) Hyperglycemia (Acute) Stroke-like symptoms (Acute) Acute respiratory failure with hypoxia (Acute) COPD exacerbation (Acute) Elevated troponin (Acute) Elevated troponin (Acute) Subjective: Patient is a 76-year-old male who is lying in bed, alert and oriented x3. Patient continues to debate decision between being discharged home with oxygen and being transferred to another facility. The hospital medicine team discussed the patient that transfer to another facility was unlikely given his current diagnoses. Patient agreeable to be discharge on home oxygen. Objective: Clinical Impression(s) from Imaging Studies Chest X-Ray 01/21/21 09:38 IMPRESSION: No active pulmonary disease. Electronically Signed: Zion Da Silva MD at 11:02 EDT Tel , Service support , Echocardiogram 01/21/21 20:24 Interpretation Summary Normal LV size. Moderate eccentric left ventricular hypertrophy. Left ventricular systolic function is normal. The estimated ejection fraction is 65 %. Stage 1 diastolic dysfunction. Ordering Physician: Jeff Mon Referring Physician: Eliud Montoya Performed By: Anne Marie Nick, RDCS, RVT - Physical Exam Vitals/I&O's: Vital Signs Temp Pulse Resp BP Pulse Ox 97.3 F L 104 H 20 H 171/58 H 77 01/22/21 09:00 01/22/21 11:02 01/22/21 11:02 01/22/21 09:00 01/22/21 11:49 Oxygen Flow Rate (L/min) [At 2 REST with Oxygen] Oxygen Flow Rate (L/min) [ 2 AMBULATING with Oxygen #1] Oxygen Flow Rate (L/min) [At 0 REST on Room Air] Oxygen Flow Rate (L/min) 2 Oxygen Delivery Method Nasal Cannula Weight: 172 lb 9.951 oz Body Mass Index (BMI) 27.8 Finger Stick Blood Glucose 383 Intake and Output for Last 24 Hours 01/20/21 01/21/21 01/22/21 23:59 23:59 23:59 Intake Total 360 / 560 490 / 490 Output Total 375 / 575 200 / 200 Balance -15 / -15 290 / 290 General: Alert, Oriented x3, Non-Cooperative HEENT: Atraumatic, PERRLA, EOMI, Normocephalic Neck: Supple, No JVD, Negative Carotid Bruits Lungs: Diminished Cardiovascular: Regular rate, No murmurs Abdomen: Bowel Sounds Present, Soft, Non Tender Extremities: No edema, Capillary Refill Less than 3 Seconds Skin: No rashes, No breakdown Musculoskeletal: No Tenderness to Palpation of Joints or Extremities Neurological: Cranial nerves II-XII grossly intact Psych/Mental Status: Normal Affect, Agitated Microbiology Past 72 Hours 01/21/21 13:35 Mucosa - Nasopharyngeal Respiratory Panel (PCR) - Final 01/21/21 09:45 Mucosa - Nose SARS-CoV-2 Antigen (Rapid) - Final Laboratory Results 01/21/21 13:40: POC Glucose 376 H 01/21/21 15:17: Troponin I 0.417 H 01/21/21 17:07: POC Glucose 385 H 01/21/21 21:13: POC Glucose 338 H 01/22/21 09:12: POC Glucose 330 H 01/22/21 12:16: POC Glucose 380 H Current Medications Acetaminophen (Acetaminophen 325 Mg Tablet) 650 mg PO Q6H PRN PRN PRN Reason: Pain Score 1-10/Temp > 100.7 F Albuterol Sulfate (Albuterol 2.5 Mg/3 Ml Vial.Neb.) 2.5 mg INHALATION Q2H PRN PRN PRN Reason: SHORTNESS OF BREATH Albuterol/Ipratropium (Ipratropium/Albuterol Sulfate 3 Ml Ampul.Neb) 3 ml INHALATION Q4H.RT [facility] Last Admin: 01/22/21 11:02 Dose: 3 ml Documented by: Aspirin (Aspirin 81 Mg Tab.Chew) 81 mg PO DAILY@0800 [facility] Last Admin: 01/22/21 12:20 Dose: 81 mg Documented by: Atorvastatin Calcium (Atorvastatin Calcium 80 Mg Tablet) 80 mg PO QHS [facility] Last Admin: 01/21/21 21:05 Dose: 80 mg Documented by: Azithromycin (Azithromycin 250 Mg Tablet) 500 mg PO Q24 [facility] Stop: 01/25/21 10:01 Last Admin: 01/22/21 12:18 Dose: 500 mg Documented by: Baclofen (Baclofen 10 Mg Tablet) 10 mg PO TID PRN PRN Reason: MUSCLE SPASM Clopidogrel Bisulfate (Clopidogrel Bisulfate 75 Mg Tablet) 75 mg PO DAILY [facility] Last Admin: 01/22/21 12:18 Dose: 75 mg Documented by: Duloxetine HCl (Duloxetine Hcl 60 Mg Capsule) 60 mg PO DAILY [facility] Last Admin: 01/22/21 12:18 Dose: 60 mg Documented by: Enoxaparin Sodium (Enoxaparin 80 Mg/0.8 Ml Syringe) 80 mg SC Q12@0600,1800 [facility] Last Admin: 01/22/21 05:12 Dose: 80 mg Documented by: Guaifenesin (Guaifenesin 600 Mg Tablet) 600 mg PO BID [facility] Last Admin: 01/22/21 12:18 Dose: 600 mg Documented by: Insulin Glargine (Insulin Glargine 100 Units/Ml Pen) 28 units SC QHS [facility] Last Admin: 01/21/21 21:18 Dose: 28 u Documented by: Insulin Human Lispro (Insulin Lispro 100 Unit/Ml Insuln.Pen) 10 unit SC BREAKFAST [facility] Last Admin: 01/22/21 11:54 Dose: Not Given Documented by: Insulin Human Lispro (Insulin Lispro 100 Unit/Ml Insuln.Pen) 8 unit SC 1200,1700 [facility] Last Admin: 01/22/21 12:23 Dose: 8 u Documented by: Insulin Human Lispro (Insulin Lispro 100 Unit/Ml Insuln.Pen) 0 unit SC ACHS [facility]; Protocol Last Admin: 01/22/21 12:23 Dose: 6 u Documented by: Lisinopril (Lisinopril 20 Mg Tablet) 20 mg PO DAILY [facility] Last Admin: 01/22/21 12:18 Dose: 20 mg Documented by: Melatonin (Melatonin 3 Mg Tablet) 3 mg PO QHS PRN PRN PRN Reason: INSOMNIA Methylprednisolone (Methylprednisolone 40 Mg/Ml Vial) 40 mg IV Q8 [facility] Last Admin: 01/22/21 05:10 Dose: 40 mg Documented by: Mirtazapine (Mirtazapine 15 Mg Tablet) 7.5 mg PO DAILY [facility] Last Admin: 01/22/21 12:18 Dose: 7.5 mg Documented by: Nebivolol (Nebivolol Hcl 5 Mg Tablet) 5 mg PO DAILY [facility] Last Admin: 01/22/21 12:18 Dose: 5 mg Documented by: Ondansetron HCl (Ondansetron 4 Mg/2 Ml Vial) 4 mg IV Q8H PRN PRN PRN Reason: NAUSEA/VOMITING Pantoprazole Sodium (Pantoprazole Sodium 40 Mg Tablet) 40 mg PO DAILY [facility] Last Admin: 01/22/21 12:18 Dose: 40 mg Documented by: Pregabalin (Pregabalin 75 Mg Capsule) 75 mg PO BID [facility] Last Admin: 01/22/21 12:18 Dose: 75 mg Documented by: Sodium Chloride (0.9% Saline Lock 10 Ml Syringe) 10 - 40 ml IV UD PRN PRN Reason: SALINE FLUSH Last Admin: 01/22/21 05:10 Dose: 10 ml Documented by: Discharge Diet: No Restrictions Discharge Activity: Return to Normal Activity Home Medications: Medications to take at Discharge Pregabalin [Lyrica] 75 mg PO BID 11/01/14 Lisinopril 20 mg PO DAILY 12/14/19 Aspirin [Aspirin, Baby] 81 mg PO DAILY@0800 tab.chew 12/17/19 Atorvastatin Calcium [Lipitor] 80 mg PO QHS tab 12/17/19 Clopidogrel Bisulfate [Plavix] 75 mg PO DAILY tab 12/17/19 Duloxetine Hcl [Cymbalta] 60 mg PO DAILY cap 12/17/19 Mirtazapine [Remeron] 7.5 mg PO DAILY 12/24/19 Pantoprazole Sodium [Protonix] 40 mg PO DAILY 12/24/19 Acetaminophen [Tylenol Tablet] 650 mg PO Q6H PRN PRN tab 12/27/19 Melatonin 3 mg PO QHS PRN PRN tab 12/27/19 Baclofen 10 mg PO TID PRN 01/21/21 Insulin Glargine [Lantus SoloStar Pen] 28 units SC QHS 01/21/21 Insulin Lispro [Humalog KwikPen] See Protocol SQ ACHS 01/21/21 Fluticasone/Umeclidin/Vilanter [Trelegy Ellipta 100-62.5-25] 1 each IH DAILY #30 blst.w.dev 01/22/21 predniSONE tablet See Taper PO DAILY #15 tab 01/22/21 Following Prescriptions Were Given to Patient: predniSONE tablet See Taper PO DAILY #15 tab Transmission Status: Pending to [id number] Fluticasone/Umeclidin/Vilanter [Trelegy Ellipta 100-62.5-25] 1 each IH DAILY #30 blst.w.dev Transmission Status: Pending to [id number] Primary Care Physician: Eliud Montoya MD [Primary Care Provider] - Please follow up with your Primary Care Physician in: Within the next 2 weeks Disposition: Home Minutes spent on discharge:: 35 Patient Condition:: Stable Medical Necessity - Tobacco Use Smoking Status: Former smoker Tobacco Use: Cigarettes Meaningful Use Info Meaningful Use Diagnoses (Choose all that apply): None applicable
--- NOTE | 2021-01-22 13:21 | CASEMGMT ---
Addendum entered by Dayana Redd 01/22/21 14:43: [facility] delivered portable oxygen tank to pt. Hugo MCCARTY CM Addendum entered by Dayana Redd 01/22/21 14:25: Per Nerissa GARCIA, pt to be sent home on Trelegy ellipta and he wanted to see if prior auth required. Pt did not have his insurance cards with him and they are not on file at [facility]. Per tech at [facility], they do not have cards on file either and they are unable to run through without card information. Per [employer] website, the trelegy is on the formulary and no prior auth required. Nerissa GARCIA updated, voices understanding. Hugo MCCARTY CM Original Note: Call to [facility] to verify script for home oxygen received and per Shi, 'they are working on it.' She is aware that pt is discharging today. Hugo MCCARTY CM
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
== END 2021-01-22 15:28 | disposition home or self-care (01) | DRG 190 ==
LOC: ED 11:26 → PCU 13:00
PROVIDERS: Emergency Provider Emergency Medicine; PCP Family Medicine; Visit Provider Internal Medicine
DX: J44.1 Chronic obstructive pulmonary disease with (acute) exacerbation (principal); J96.01 Acute respiratory failure with hypoxia; R79.89 Other specified abnormal findings of blood chemistry; E11.65 Type 2 diabetes mellitus with hyperglycemia; E78.5 Hyperlipidemia, unspecified; I10 Essential (primary) hypertension; M54.5 Low back pain; G89.29 Other chronic pain; K21.9 Gastro-esophageal reflux disease without esophagitis; E78.00 Pure hypercholesterolemia, unspecified; Z79.02 Long term (current) use of antithrombotics/antiplatelets; Z79.4 Long term (current) use of insulin; Z85.46 Personal history of malignant neoplasm of prostate; Z87.891 Personal history of nicotine dependence; Z86.73 Personal history of transient ischemic attack (TIA), and cerebral infarction without residual deficits; Z79.899 Other long term (current) drug therapy
CPT/HCPCS: 36415; 71045; 80048; 82803; 82962; 84484; 85025; 87426; 87633; 93005; 93306; 94002; 94003; 94640; 94667; 99251; 99285; A4216; G0463

== ENCOUNTER 2021-09-18 15:49 | Emergency (ER) | payer MEDICARE, SELFPAY ==
[2021-09-18 15:51] VITALS: BP 199/89; PULSE 94; RESP 18; TEMP 35.6; O2SAT 97; BMI 27.4
--- NOTE | 2021-09-18 17:36 | EKG12_ITS ---
Test Reason : Blood Pressure : / mmHG Vent. Rate : 067 BPM Atrial Rate : 067 BPM P-R Int : 126 ms QRS Dur : 086 ms QT Int : 412 ms P-R-T Axes : 082 038 053 degrees QTc Int : 435 ms Normal sinus rhythm with sinus arrhythmia Normal ECG Confirmed by PARKER MULLIGAN, ROBLES ([id number]), sound editor HOLLIS OLMOS ([id number]) on 09/20/2021 8:25:08 AM Referred By: LEXY Confirmed By:ROBLES CANALES MD
--- NOTE | 2021-09-18 17:53 | EX.ED.DYSGE1 ---
HPI History of Present Illness Chief Complaint: Hypertension Narrative Narrative: 76-year-old male presenting with elevated blood pressure. He states is been going on for a couple of days. He states his systolic number was over 200 at home. He states he takes lisinopril 20 mg p.o. daily. Patient does admit to some intermittent chest pain which he describes as a cramping sensation in the left chest wall. He states sometimes does last for hours. Other times the last less time. The chest pain does not radiate. He does not get dizzy or diaphoretic. He does not feel shortness of breath. [facility] Medical History COPD (chronic obstructive pulmonary disease) DM2 (diabetes mellitus, type 2) GERD (gastroesophageal reflux disease) HTN (hypertension) Hyperlipidemia Home Medications pregabalin [Lyrica] 75 mg PO BID 11/01/14 [History Last Taken 01/20/21 21:00] lisinopril 20 mg PO DAILY 12/14/19 [History Last Taken 01/20/21 09:00] aspirin 81 mg PO DAILY@0800 tab.chew 12/17/19 [Rx Last Taken 01/20/21 09:00] atorvastatin 80 mg PO QHS tab 12/17/19 [Rx Last Taken 01/20/21 21:00] clopidogrel 75 mg PO DAILY tab 12/17/19 [Rx Last Taken Unknown] duloxetine 60 mg PO DAILY cap 12/17/19 [Rx Last Taken 01/20/21 09:00] mirtazapine 7.5 mg PO DAILY 12/24/19 [History Last Taken 01/20/21 21:00] pantoprazole 40 mg PO DAILY 12/24/19 [History Last Taken 01/20/21 09:00] acetaminophen 650 mg PO Q6H PRN PRN tab 12/27/19 [Rx Last Taken Unknown] melatonin 3 mg PO QHS PRN PRN tab 12/27/19 [Rx Last Taken Unknown] Baclofen 10 mg PO TID PRN 01/21/21 [History Last Taken 01/20/21 21:00] insulin glargine 28 units SC QHS 01/21/21 [History Last Taken 01/20/21 21:00] insulin lispro See Protocol SQ ACHS 01/21/21 [History Last Taken 01/20/21 21:00] albuterol sulfate 2 puff INHALATION Q6H PRN PRN #1 inhaler 01/22/21 [Rx Last Taken Unknown] fluticasone propionate 2 puff INHALATION BID #1 inhaler 01/22/21 [Rx Last Taken Unknown] prednisone See Taper PO DAILY #15 tab 01/22/21 [Rx Last Taken Unknown] tiotropium-olodaterol 4 gm IH UD #1 mist.inhal 01/22/21 [Rx Last Taken Unknown] hydrochlorothiazide 25 mg PO QODAY #30 tab 09/18/21 [Rx Last Taken Unknown] Allergy/AdvReac Type Severity Reaction Status Date / Time No Known Allergies Allergy Verified 09/18/21 15:55 Social History Smoking Status: Former smoker ROS ROS ED Constitutional Constitutional ED: Denies chills, fever(s) or sweats Eyes Eyes: Denies blurry vision or change in vision ENT ENT ED: Denies ear pain or sore throat Cardiovascular Cardiovascular: Reports chest pain; Denies palpitations or racing heartbeat Respiratory/Chest Respiratory/Chest: Denies cough, dyspnea or sputum Gastrointestinal Gastrointestinal: Denies abdominal pain, constipation, diarrhea, nausea or vomiting Genitourinary Genitourinary ED: Denies dysuria, hematuria or urinary frequency Musculoskeletal Musculoskeletal: Denies arthralgias, myalgias or neck pain Integumentary Denies abscess, Abrasions or rash Neurologic Neurologic: Denies headache(s), paresthesias or weakness Psychiatric Psychiatric: Denies anxiety, depression, suicidal ideation or suicidal thoughts Endocrine Endocrinology: Denies polydipsia or polyuria EXAM Physical Exam Const Vital Signs: 09/18/21 15:51 09/18/21 18:03 09/18/21 19:27 Temperature 96.1 F L Temperature Source Temporal Pulse Rate 94 65 Respiratory Rate 18 16 Blood Pressure 199/89 H 155/78 H Blood Pressure Mean 125 103 Pulse Ox 97 97 96 Oxygen Delivery Method Room Air Room Air Room Air 09/18/21 21:29 Temperature Temperature Source Pulse Rate 72 Respiratory Rate 20 H Blood Pressure 168/69 H Blood Pressure Mean Pulse Ox 100 Oxygen Delivery Method Positive well nourished, alert and oriented x3 General Appearance ED: Negative for pallor HEENT Reports normocephalic, head/scalp atraumatic and moist mucous membranes Eyes PERRL and EOMs intact bilaterally Neck no lymphadenopathy and supple Chest Wall inspection of chest normal and palpation of chest normal Resp normal respiratory effort and clear to auscultation bilaterally Auscultation: Negative for rales, rhonchi or wheezes Cardio regular rate and regular rhythm GI normal to inspection, nondistended, normoactive bowel sounds and non-distended Auscultation: normoactive bowel sounds Palpation: soft Narrative: Deferred Extremity normal to inspection General Extremety ED: Negative for edema or tenderness General Extremity: Negative for edema Neuro oriented x3 and CN's II-XII intact bilaterally Sensorium / Orientation: alert Motor Exam: strength 5/5 throughout Psych mental status grossly normal and thought process normal Attitude: No agitated Skin no rashes or lesions noted, no wounds, No no jaundice and No no petechiae General Skin Exam: Negative for jaundice or pallor MDM MDM MDM Narrative Medical decision making narrative: 76-year-old male presenting with muscle cramping in his left chest wall as well as elevated blood pressure. He states his blood pressure was in the 200s systolically at home. He does not remember the bottom number. On arrival his blood pressure is 199/89. Patient is on lisinopril 20 mg p.o. daily. He states he called his primary care doctor earlier today but could not get through to them. While he was waiting in the waiting room his doctor's office did call back, but he told them he was in the emergency room and states that they told him to call back when he was done with what ever he is doing. I did obtain an EKG and on my interpretation this is a normal sinus rhythm with a ventricular rate of 67 bpm without sign of ischemic change. High-sensitivity troponin is 22. Chest x-ray is interpreted by the radiologist is read as bilateral pneumonia although the patient does not have any respiratory symptoms. I did review his previous x-ray and there may appear to be something more in the left lung than previous but the right lung looks similar on my interpretation. I discussed the findings with his primary care physician Dr. Montoya at this time we determined that the patient likely does not need antibiotics without a what elevated white blood cell count and with normal vital signs other than his blood pressure. He recommended I placed the patient on hydrochlorothiazide 25 mg. The patient did test negative for COVID-19 today as well. Patient was given a dose of labetalol while in the ED and his blood pressure did respond to 155/78. This did actually a little higher to 168/69 but the patient understands that we did add blood pressure medication slowly. I will give prescription for the hydrochlorothiazide and he will monitor his blood pressure at home with a diary. He will follow up with Dr. Montoya to ensure his blood pressure is well controlled. Impression: 1. Elevated blood pressure established?[id number] 2. Chest wall pain Lab Data Attestation: I reviewed the patient's lab results. Labs: Laboratory Results - last 24 hr 09/18/21 09/18/21 18:05 18:05 WBC 9.0 RBC 5.31 Hgb 11.7 L Hct 38.9 L MCV 73.3 L MCH 22.0 L MCHC 30.1 L RDW Std Deviation 44.5 H RDW Coeff of Vivian 17.2 H Plt Count 221 MPV TNP Immature Gran % (Auto) 0.300 Neut % (Auto) 62.4 Lymph % (Auto) 24.7 Kingfisher % (Auto) 5.6 Eos % (Auto) 6.3 H Baso % (Auto) 0.7 Absolute Neuts (auto) 5.6 Absolute Lymphs (auto) 2.21 Nucleated RBC % 0 Sodium 144 Potassium 3.4 L Chloride 113 H Carbon Dioxide 26.0 Anion Gap 5 BUN 14 Creatinine 0.84 Estim Creat Clear Calc 67.51 Est GFR (MDRD) Af Amer 114 Est GFR (MDRD) Non-Af 94 BUN/Creatinine Ratio 16.7 Glucose 151 H Calcium 8.8 Troponin I High Sens 22 Radiography Diagnostic Testing: Clinical Impression(s) from Imaging Studies Chest X-Ray 09/18/21 18:13 IMPRESSION: Bilateral pneumonia. Electronically Signed: Judson Davidson MD at 18:29 EST , Service support , Discharge Plan Triage Chief Complaint: Hypertension ED Provider: Adriel Daly Dx/Rx/DC Orders Instructions: ED Hypertension, Established Prescriptions: New hydrochlorothiazide 25 mg tablet 25 mg PO QODAY Qty: 30 RF: 0 No Action pregabalin [Lyrica] 150 MG capsule 75 mg PO BID RF: 0 lisinopril 20 MG tablet 20 mg PO DAILY RF: 0 atorvastatin 80 MG tablet 80 mg PO QHS RF: 0 clopidogrel 75 MG tablet 75 mg PO DAILY RF: 0 aspirin 81 MG tablet,chewable 81 mg PO DAILY@0800 RF: 0 duloxetine 60 MG capsule 60 mg PO DAILY RF: 0 pantoprazole 40 MG tablet 40 mg PO DAILY RF: 0 mirtazapine 15 MG tablet,disintegrating 7.5 mg PO DAILY RF: 0 acetaminophen 325 MG tablet 650 mg PO Q6H PRN PRN (Reason: Pain Score 1-10/Temp > 100.7 F) RF: 0 melatonin 3 MG tablet 3 mg PO QHS PRN PRN (Reason: Insomnia) RF: 0 Baclofen 10 mg PO TID PRN (Reason: Muscle Spasm) RF: 0 insulin glargine 100 UNITS/ML insulin pen 28 units SC QHS RF: 0 insulin lispro 100 UNIT/ML insulin pen See Protocol unit SQ ACHS RF: 0 prednisone 20 MG tablet See Taper mg PO DAILY Qty: 15 RF: 0 tiotropium-olodaterol 4 GM mist 4 gm IH UD Qty: 1 RF: 0 albuterol sulfate 1 PUFF inhaler 2 puff INHALATION Q6H PRN PRN (Reason: Shortness Of Breath) Qty: 1 RF: 0 fluticasone propionate 1 INHALER inhaler 2 puff INHALATION BID Qty: 1 RF: 0 Primary Care Provider: Eliud Montoya Referrals: Eliud Montoya MD [Primary Care Provider] - Disposition Disposition: Home, Self Care Discharge Date/Time: 09/18/21 21:30
[2021-09-18 18:03] VITALS: O2SAT 97
[2021-09-18] MEDS: Labetalol (Prefilled) 20 MG/4 ML IV (18:08)
--- NOTE | 2021-09-18 18:13 | RAD_ITS ---
STUDY: XR Chest 1 View 09/18/2021 6:07 PM REASON FOR EXAM: Male, 76 years old. CHEST PAIN chest pain COMPARISON: 01/21/2021 TECHNIQUE: XR Chest 1 View FINDINGS: There is no demonstrated pleural abnormality. There is bilateral infiltrate / atelectasis. Enlarged heart size. Normal mediastinum. Normal braden. Prominent appearing increased interstitial lung markings. Normal visualized pulmonary arteries. There is atherosclerotic calcification of the aortic arch with tortuosity. There are diffuse degenerative changes of the visualized thoracic spine. There is degenerative osteoarthritis of the bilateral shoulders. There is no demonstrated abnormality of the visualized soft tissue structures of the upper abdomen. RAD/Chest 1 View (Portable) IMPRESSION: Bilateral pneumonia. Electronically Signed: Judson Davidson MD at 18:29 EST , Service support ,
[2021-09-18 18:23] LABS: Absolute Lymphocyte Count 2.21 X10^3/uL (0.83-4.51); Absolute Neutrophil Count 5.6 X10^3/uL (2.0-7.7); Basophil# 0.06 X10^3/uL; Basophil% 0.7 % (0-1); Eosinophil# 0.56 X10^3/uL; Eosinophils% 6.3 % (0-5); Hematocrit 38.9 % (40-54); Hemoglobin 11.7 g/dL (13.0-16.5); Lymphocyte # 2.21 X10^3/ul (0.83-4.51); Lymphocyte % 24.7 % (19-41); Mean Corp Hgb Conc 30.1 g/dL (32-36); Mean Corpuscular Volume 73.3 fL (80-94); Monocyte% 5.6 % (0-10); NRBC Flagged by Analyzer 0 % (0-5); Neutrophil # 5.59 X10^3/uL (2.7-7.7); Neutrophil % 62.4 % (47-70); Platelet Count 221 K/mm3 (150-450); RBC Distribution Width CV 17.2 % (11.6-14.6); RBC Distribution Width SD 44.5 fl (35.1-43.9); Red Blood Count 5.31 M/mm3 (4.6-6.2)
[2021-09-18 18:39] LABS: Anion Gap 5 (5-15); BUN 14 mg/dL (7-18); BUN/Creat Ratio 16.7 RATIO (10-20); Calcium,Total 8.8 mg/dL (8.5-10.1); Chloride 113 mmol/L (98-107); Creatinine, Serum 0.84 mg/dL (0.70-1.30); EST Glomerular Filtration Rate 94 mL/min (>60); Est Glom Filt Rate - Afr Amer 114 mL/min (>60); Estimated Creatinine Clearance 67.51 ml/min; Glucose 151 mg/dL (74-106); Potassium 3.4 mmol/L (3.5-5.1); Sodium Level 144 mmol/L (136-145); Troponin-I HS 22 pg/mL (3.0-78.0)
[2021-09-18 19:27] VITALS: BP 155/78; PULSE 65; RESP 16; O2SAT 96
[2021-09-18 21:29] VITALS: BP 168/69; PULSE 72; RESP 20; O2SAT 100
== END 2021-09-18 21:30 | disposition home or self-care (01) ==
PROVIDERS: Emergency Provider Student in an Organized Health Care Education/Training Program; PCP Family Medicine
DX: R07.89 Other chest pain (principal); I10 Essential (primary) hypertension; J18.9 Pneumonia, unspecified organism; J44.0 Chronic obstructive pulmonary disease with (acute) lower respiratory infection; E11.9 Type 2 diabetes mellitus without complications; E78.5 Hyperlipidemia, unspecified; K21.9 Gastro-esophageal reflux disease without esophagitis; Z79.4 Long term (current) use of insulin; Z79.82 Long term (current) use of aspirin; Z79.899 Other long term (current) drug therapy; Z87.891 Personal history of nicotine dependence
CPT/HCPCS: 71045; 80048; 84484; 85025; 87426; 93005; 96374; 99284; A4216